=== PATIENT | female | born 1985 | race Caucasian/White ===

== ENCOUNTER 2018-06-25 18:16 | Inpatient (IN) | payer BC, OTHER ==
--- NOTE | 2018-06-25 18:31 | PDOC ---
Rapid Medical Evaluation Chief Complaint: Headache Time Seen by Provider: 06/25/18 18:29 Medical Evaluation: Allergies Allergy/AdvReac Type Severity Reaction Status Date / Time iodine Allergy Intermediate VOMITING/SY Verified 07/13/14 17:08 NCOPE 06/25/18 18:29 I performed a brief in-person evaluation of this patient. Chief complaint is: Headache, neck pain, right arm numbness. Symptoms started and were associated with facial rash. Seen by urgent care and dx with shingles, started on valcyclovir. Saw ID who disagreed, started on Medrol dose pack and doxycycline without improvement. Now with worsening pain. Directed by ID to come to ED. Pertinent physical exam findings include: Neck stiffness, limited ROM. Afebrile. I have ordered the following: Basic labs. Patient will proceed to the ED for further evaluation. Discharge Disposition - Diagnosis Neck pain - Discharge Dispostion Condition at time of disposition: Stable - Referrals - Patient Instructions - Post Discharge Activity
--- NOTE | 2018-06-25 20:43 | PDOC ---
History of Present Illness - General Chief Complaint: Headache Stated Complaint: HEAD PAIN Time Seen by Provider: 06/25/18 18:29 History Source: Patient Exam Limitations: No Limitations - History of Present Illness Initial Comments: 06/25/18 20:31 32 yo F with a hx of DM presents to the emergency department with worsening bilateral neck pain with radiation to her right arm and bilateral temporal aspect of head. Per the patient, this pain began two weeks ago and was seen in urgent care. There she had rash along the V1 distribution right side without optho involvement. She was diagnosed with shingles and prescribed valcyclovir and doxycycline which improved the rash, but did not flo the pain. She was seen by neurology which referred her to Dr. Vargas of infectious disease who gave her a solumedrol pack. Despite being on the pack, her pain has worsened. She states the pain is 10/10, sharp, located in the midline neck, right shoulder , and bilateral temporal lobes. Subsequently, she developed weakness and decreased sensation in her right arm that has been ongoing for 3-4 days. She endorses she had double vision several days ago but has resolved now. Endorses the following: ataxia. States her sister had symptoms of right facial droop with weakness in her arm that was transient twice in her lifetime. Denies the following: fever, chills, nausea, vomiting, chest pain, SOB, abdominal pain, hematuria, diarrhea, and leg pain/swelling. No recent travels. Endorses dysuria. PMD: Dr. Guerrero Shx: appendectomy, Meds: None Allergies: Iodine Social: Endorses tobacco. Denies alcohol and substance abuse. 06/26/18 00:16 Past History - Past Medical History Allergies/Adverse Reactions: Allergies Allergy/AdvReac Type Severity Reaction Status Date / Time iodine Allergy Severe VOMITING/SY Verified 06/26/18 14:41 NCOPE Home Medications: Ambulatory Orders Doxycycline Hyclate 100 mg PO DAILY 06/26/18 Gabapentin [Neurontin] 300 mg PO TID 06/26/18 Methylprednisolone mg PO 06/26/18 Valacyclovir HCl 1 gm PO TID 06/26/18 COPD: No Dialysis: No Kidney Stones: No - Surgical History Abdominal Surgery: Yes Appendectomy: Yes - Immunization History Immunization Up to Date: No - Suicide/Smoking/Psychosocial Hx Smoking History: Never smoked Have you smoked in the past 12 months: No Number of Cigarettes Smoked Daily: 6 Information on smoking cessation initiated: No Hx Alcohol Use: No Drug/Substance Use Hx: No Substance Use Type: Alcohol Review of Systems - Review of Systems Able to Perform ROS?: Yes Is the patient limited [place] proficient: No Constitutional: Yes: Weakness. No: Chills, Diaphoresis, Fever HEENTM: No: Eye Pain, Recent change in vision, Ear Pain, Nose Pain, Throat Pain , Mouth Pain Respiratory: No: Cough, Shortness of Breath, SOB with Exertion Cardiac (ROS): No: Chest Pain, Lightheadedness, Palpitations, Syncope, Chest Tightness ABD/GI: No: Constipated, Diarrhea, Nausea, Rectal Bleeding, Vomiting, Tarry Stools : No: Burning, Dysuria, Hematuria Musculoskeletal: Yes: Muscle Weakness, Neck Pain Integumentary: Yes: Lesions (post-zoster plaques on right frontal forehead V1 distribution). No: Erythema, Flushing Neurological: Yes: Tingling, Ataxia. No: Headache, Numbness, Tremors, Dizziness Psychiatric: No: Stressors Endocrine: No: Unexplained Weight Gain Hematologic/Lymphatic: No: Anemia *Physical Exam - Vital Signs Last Vital Signs Temp Pulse Resp BP Pulse Ox 98.0 F 91 H 18 134/98 100 06/25/18 18:25 06/25/18 18:25 06/25/18 18:25 06/25/18 18:25 06/25/18 18:25 - Physical Exam General Appearance: Yes: Nourished, Appropriately Dressed. No: Apparent Distress, Intoxicated HEENT: positive: EOMI, GORDO, Normal Voice, Pharynx Normal. negative: Pale Conjunctivae, Scleral Icterus (R), Scleral Icterus (L), Muffled/Hoarse voice, Pharyngeal Erythema, Tonsillar Exudate, Tonsillar Erythema, Nasal Congestion, Rhinorrhea, Sinus Tenderness Neck: positive: Tender (midline and bilateral paravertebral. ), Trachea midline , Supple, Decreased range of motion (due to pain), Tender lateral, Tender midline. negative: Lymphadenopathy (R), Lymphadenopathy (L) Respiratory/Chest: positive: Lungs Clear, Normal Breath Sounds. negative: Chest Tender, Respiratory Distress, Accessory Muscle Use, Crackles, Rales, Rhonchi, Stridor, Wheezing, Hyperresonant Cardiovascular: positive: Regular Rhythm, S1, S2, Tachycardia. negative: Systolic Murmur Gastrointestinal/Abdominal: positive: Normal Bowel Sounds, Flat, Soft. negative : Tender, Rebound, Tenderness, Hernia Lymphatic: negative: Adenopathy Musculoskeletal: positive: Normal Inspection, Vertebral Tenderness (cervical) Extremity: positive: Normal Capillary Refill, Normal Inspection. negative: Normal Range of Motion Integumentary: positive: Normal Color, Dry, Warm Neurologic: positive: roast master II-XII NML intact, Fully Oriented, Alert, Normal Mood/ Affect, Normal Response, Sensory Deficit (on right hand C6-7 distribution. ). negative: Motor Strength 5/5 (decreased hand strength in right hand on junior accounting clerk. ), EOM Palsy, Facial Droop Moderate Sedation - Procedure Monitoring Vital Signs: Procedure Monitoring Vital Signs Temperature 98.0 F 06/25/18 18:25 Pulse Rate 91 H 06/25/18 18:25 Respiratory Rate 18 06/25/18 18:25 Blood Pressure 134/98 06/25/18 18:25 O2 Sat by Pulse Oximetry (%) 100 06/25/18 18:25 ED Treatment Course - LABORATORY CBC & Chemistry Diagram: 06/29/18 06:00 06/29/18 06:00 Medical Decision Making - Medical Decision Making 32 yo F with a hx of DM presents to the emergency department with worsening bilateral neck pain with radiation to her right arm and bilateral temporal aspect of head. Initial vitals: Initial Vital Signs Temp Pulse Resp BP Pulse Ox 98.0 F 91 H 18 134/98 100 06/25/18 18:25 06/25/18 18:25 06/25/18 18:25 06/25/18 18:25 06/25/18 18:25 Work up: ddx: transient myelitis vs post-zoster neuralgia vs MS vs cervical radiculopathy will order c spine CT and head CT. labs showed she had leukocytosis with elevated glucose likely due to the steroids she is currently on. In further history taking, she states her sister had 2 episodes of transient loss of vision with hand junior accounting clerk weakness, but denies formal diagnosis. In addition, the patient states she had visual changes in her right eye that were transient and are resolved now. CT head and cervical spine show no acute pathologies. Neurology (Dr. Green) was contacted who agreed to see the patient. Requested MRI brain and cervical spine with contrast. Patient was accepted for admission. Dispo: Admit *DC/Admit/Observation/Transfer Diagnosis at time of Disposition: Neck pain, Right hand weakness Headache Qualifiers: Headache type: unspecified Headache chronicity pattern: unspecified pattern Intractability: not intractable Qualified Code(s): R51 - Headache - Discharge Dispostion Condition at time of disposition: Fair - Referrals - Patient Instructions - Post Discharge Activity
[2018-06-25] MEDS ORDERED: KETOROLAC TROMETHAMINE 30 MG/1 ML VIAL IM ONE (20:53)
--- NOTE | 2018-06-25 21:10 | PDOC ---
Attending Attestation - HPI HPI: This patient is a 32 year old female with a hx of DM, who presents to the emergency department with worsening bilateral neck pain. She states that neck pain radiates to her right arm and bilateral temporal aspect of head. Patient states that 2 weeks ago she was seen at the urgent care for her neck pain and lesions on her face. She was dx with shingles,started on valacyclovir. She saw ID who disagreed with dx and started her on Medrol dose pack and doxycycline without improvement She states that the lesions on her neck have since went away but she still has worsening unbearable neck pain, describes as a burning sensation, rates 10/10. She also notes associated headache, decreased sensation in her right arm, dysuria. She denies any inciting event. Patient also notes associated double vision. She denies any fever, chills, chest pain, shortness of breath, abdominal pain, hematuria, or hematochezia. - Physicial Exam PE: GENERAL: Awake, alert, and fully oriented, uncomfortable appearing. HEAD: No signs of trauma EYES: PERRLA, EOMI, eyes injected, conjunctiva clear. Right eye pain ENT: Auricles normal inspection, hearing grossly normal, nares patent, oropharynx clear without exudates. Moist mucosa NECK: Limited ROM,spastic muscle in c-spine, no lymphadenopathy, JVD, or masses LUNGS: Breath sounds equal, clear to auscultation bilaterally. No wheezes, and no crackles HEART: Tachycardic. Regular rhythm, normal S1 and S2, no murmurs, rubs or gallops ABDOMEN: Soft, nontender, normoactive bowel sounds. No guarding, no rebound. No masses EXTREMITIES: Weakness in hand side splitter of right arm. Sensory changes along radial nerve root into hand. Spastic muscles of c-spine. Midline tenderness to palpation of c-spine and upper thoracic region. Normal range of motion, no edema. No clubbing or cyanosis. No cords, erythema, or tenderness NEUROLOGICAL: Ataxic gait, leans to right. Cranial nerves II through XII grossly intact. Normal speech. SKIN: One healing lesion behind right ear. Warm, Dry, normal turgor, no rashes or lesions noted. - Medical Decision Making Paged Dr. David for Neuro consult 06/26/18 00:18 <Camelia Melton - Last Filed: 06/26/18 00:18> - Resident Resident Name: Edwin Nguyễn - ED Attending Attestation I have performed the following: I have examined & evaluated the patient, The case was reviewed & discussed with the resident, I agree w/resident's findings & plan, Exceptions are as noted - Medical Decision Making 06/25/18 21:09 I, Dr. Mira Valdez, DO, attest that this document has been prepared under my direction and personally reviewed by me in its entirety. I further attest, that it accurately reflects all work, treatment, procedures and medical decision -making performed by me. 06/25/18 21:35 a/p: 32yo female with ataxia, R arm weakness, R arm numbness and greenberg for a few days -has recently been dx with shingles, but ataxia, neck pain started before the shingles dx -R eye pain - no blurred vision -leans to the R with walking -currently on prednisone and symptoms are worsening -will send labs, head ct, ct c spine -concern for MS- may need an MRI -will discuss with neurology 06/25/18 22:48 pt with mildly elevated wbc and glu - most likely from prednisone use 06/26/18 00:[address] and c spine ct are negative 06/26/18 00:39 resident discussed the case with Dr. Green who will see the patient in consult requests MRI brain and c spine with contrast microblog sent to [facility] 06/26/18 01:[address] Oconnor who accepts pt to service <Mira Valdez - Last Filed: 06/26/18 01:23> *DC/Admit/Observation/Transfer <Camelia Melton - Last Filed: 06/26/18 00:18> - Discharge Dispostion Decision to Admit order: Yes <Mira Valdez - Last Filed: 06/26/18 01:23> Diagnosis at time of Disposition: Neck pain, Headache, Right hand weakness - Discharge Dispostion Condition at time of disposition: Fair
[2018-06-25] MEDS ORDERED: diazePAM CARPU-JECT 10 MG/2 ML DISP.SYRIN IVPUSH ONE (21:17)
[2018-06-25] MEDS ORDERED: SODIUM CHLORIDE 0.9% 1000 ML INFUS.BAG IV ONE (21:24)
[2018-06-25] MEDS ORDERED: diazePAM 5 MG TABLET PO ONE (21:26)
[2018-06-25 21:53] LABS: BASO % 1.5 % (0-2.0); EOS % 1.9 % (0-4.5); HEMATOCRIT 44.5 % (32.4-45.2); HEMOGLOBIN 15.1 GM/dL (10.7-15.3); LYMPH % 41.4 % (8-40); MCH 29.6 pg (25.7-33.7); MCHC 33.9 g/dl (32.0-36.0); MEAN CELL VOLUME 87.5 fl (80-96); MEAN PLT VOLUME 9.7 fl (7.5-11.1); MONO % 5.5 % (3.8-10.2); NEUT % 49.7 % (42.8-82.8); PLATELET COUNT 253 K/MM3 (134-434); RBC 5.09 M/mm3 (3.60-5.2); WHITE BLOOD COUNT 13.6 K/mm3 (4.0-10.0)
[2018-06-25 22:18] LABS: ALK PHOS 65 U/L (45-117); ANION GAP 9 MMOL/L (8-16); BILIRUBIN,TOTAL 0.7 mg/dL (0.2-1); BLOOD UREA NITROGEN 10 mg/dL (7-18); CALCIUM 8.7 mg/dL (8.5-10.1); CHLORIDE 104 mmol/L (98-107); CO2 25 mmol/L (21-32); CREATININE 0.6 mg/dL (0.55-1.3); GLUCOSE,RANDOM 228 mg/dL (74-106); POTASSIUM 3.6 mmol/L (3.5-5.1); SGOT/AST 8 U/L (15-37); SGPT/ALT 15 U/L (13-61); SODIUM 138 mmol/L (136-145); TOT PROT 7.2 g/dl (6.4-8.2)
[2018-06-25] MEDS ORDERED: diazePAM 5 MG TABLET ONE (22:47)
[2018-06-25] MEDS ORDERED: KETOROLAC TROMETHAMINE 30 MG/1 ML VIAL ONE (22:47)
[2018-06-25 23:37] LABS: URINE APPEARANCE SLCLOUDY; URINE BILIRUBIN NEGATIVE (<2.0 mg/dL); URINE COLOR AMBER; URINE GLUCOSE (UA) 3+ (NEGATIVE); URINE KETONE 1+ (NEGATIVE); URINE LEUK ESTERASE NEGATIVE (NEGATIVE); URINE NITRITE NEGATIVE (NEGATIVE); URINE PROTEIN 2+ (NEGATIVE)
[2018-06-25 23:38] LABS: HCG,QUALITATIVE URINE Negative
[2018-06-25 23:50] LABS: EPI CELLS RARE /HPF (FEW); URINE BACTERIA RARE /hpf (NONE SEEN); URINE MUCUS FEW
[2018-06-25] MEDS ORDERED: ACETAMINOPHEN 1000 MG/100 ML VIAL (NON FORMULARY) IVPB ONE (23:52)
[2018-06-25] MEDS ORDERED: METOCLOPRAMIDE HCL INJECTION 10 MG/2 ML VIAL IVPUSH ONE (23:52)
[2018-06-26] MEDS ORDERED: ACETAMINOPHEN INJECTION 100 ML IVPB ONE (01:07)
[2018-06-26] MEDS ORDERED: METOCLOPRAMIDE HCL INJECTION 10 MG/2 ML VIAL ONE (01:07)
--- NOTE | 2018-06-26 02:45 | HP ---
CHIEF COMPLAINT: headache/weakness/eye pain , neck pain PCP:none HISTORY OF PRESENT ILLNESS: 32 y/o female with PMH of DM who presented to the ED with a 3 day history of worsening right sided eye pain, neck pain, right sided weakness. Of note- 2 weeks ago patient was having intractable neck pain, the noticed that she had a rash on the right side of her forehead and noticed 2 bumps behind her right ear , so she went to the doctor who diagnosed her with shingles and she was prescribed valacyclovir and doxycycline. The rash went away, however, her pain didn't go away- so she was prescribed a medrol dose pack with no relief of pain. Then 3 days ago she started to notice her right eye started bothering her and she was having trouble picking things up with her right hand and felt that her right leg was weak with associated numbness/tingling and she felt off- balanced. she denies any fevers/chills/ recent illnesses and no one is sick around her ER course was notable for: (1) vitals signs wnl (2)hed and c-spine CT negative; (3) given benadryl; tylenol, valium, toradol Recent Travel: none PAST MEDICAL HISTORY: see above PAST SURGICAL HISTORY: appendectomy Social History: Smoking:smokes 1-2 cigarettes/day for the past 5 years Alcohol:social alcohol use Drugs: denies Family History: mother at 40 from multiple strokes, sister also has history of multple strokes Allergies iodine Allergy (Intermediate, Verified 07/13/14 17:08) VOMITING/SYNCOPE HOME MEDICATIONS: Home Medications Medication Instructions Recorded metFORMIN HCL [Glucophage -] 500 mg PO BID #60 tablet 07/14/14 REVIEW OF SYSTEMS CONSTITUTIONAL: Present: generalized weakness Absent: fever, chills, diaphoresis, , malaise, loss of appetite, weight change HEENT: Present: eye pain, visual changes Absent: rhinorrhea, nasal congestion, throat pain, throat swelling, difficulty swallowing, mouth swelling, ear pain, eye CARDIOVASCULAR: Absent: chest pain, syncope, palpitations, irregular heart rate, lightheadedness , peripheral edema RESPIRATORY: Absent: cough, shortness of breath, dyspnea with exertion, orthopnea, wheezing, stridor, hemoptysis GASTROINTESTINAL: Absent: abdominal pain, abdominal distension, nausea, vomiting, diarrhea, constipation, melena, hematochezia GENITOURINARY: Absent: dysuria, frequency, urgency, hesitancy, hematuria, flank pain, genital pain MUSCULOSKELETAL: Absent: myalgia, arthralgia, joint swelling, back pain, neck pain SKIN: Absent: rash, itching, pallor HEMATOLOGIC/IMMUNOLOGIC: Absent: easy bleeding, easy bruising, lymphadenopathy, frequent infections ENDOCRINE: Absent: unexplained weight gain, unexplained weight loss, heat intolerance, cold intolerance NEUROLOGIC: Present: dizziness, unsteady gait, Absent: headache, focal weakness or paresthesias, , seizure, mental status changes, bladder or bowel incontinence PSYCHIATRIC: Absent: anxiety, depression, suicidal or homicidal ideation, hallucinations. PHYSICAL EXAMINATION Vital Signs - 24 hr 06/25/18 18:25 Temperature 98.0 F Pulse Rate 91 H Respiratory 18 Rate Blood Pressure 134/98 O2 Sat by Pulse 100 Oximetry (%) GENERAL: Awake, alert, and fully oriented, in no acute distress.. EYES: Pupils equal, round and reactive to light, extraocular movements intact, pain in right eye upon lateral gaze.. NECK: no JVD, no lymphadenopathy. LUNGS:CTA B/L; no rales, rhonchi or wheezing. HEART: Regular rate and rhythm, normal S1 and S2 without murmur, rub or gallop. ABDOMEN: Soft, nontender, not distended, normoactive bowel sounds, no guarding, no rebound, no masses. No hepatomegaly or splenomegaly. MUSCULOSKELETAL: Normal range of motion at all joints. No bony deformities or tenderness. No CVA tenderness. EXTREMITIES: warm; well-perfused; no clubbing/cyanosis or edema NEUROLOGICAL: Cranial nerves II-XII intact. Normal speech.ataxic gait (leaning towards right side), 3/5 strenght on right side; 5/5 strength on left side. PSYCHIATRIC: Cooperative. Good eye contact. Appropriate mood and affect. SKIN: Warm, dry, normal turgor, no rashes or lesions noted, normal capillary refill. Laboratory Results - last 24 hr 06/25/18 06/25/18 06/25/18 21:36 21:36 21:37 WBC 13.6 H RBC 5.09 Hgb 15.1 Hct 44.5 MCV 87.5 MCH 29.6 MCHC 33.9 RDW 14.0 Plt Count 253 MPV 9.7 Absolute Neuts (auto) 6.8 Neutrophils % 49.7 Lymphocytes % 41.4 H D Monocytes % 5.5 Eosinophils % 1.9 Basophils % 1.5 Nucleated RBC % 0 Sodium 138 Potassium 3.6 Chloride 104 Carbon Dioxide 25 Anion Gap 9 BUN 10 Creatinine 0.6 Creat Clearance w eGFR > 60 Random Glucose 228 H Calcium 8.7 Total Bilirubin 0.7 AST 8 L ALT 15 Alkaline Phosphatase 65 Total Protein 7.2 Albumin 4.0 Serum , Qual Negative Urine Color Urine Appearance Urine pH Ur Specific [place] Urine Protein Urine Glucose (UA) Urine Ketones Urine Blood Urine Nitrite Urine Bilirubin Urine Urobilinogen Ur Leukocyte Esterase Urine WBC (Auto) Urine RBC (Auto) Ur Epithelial Cells Urine Bacteria Urine Mucus Urine HCG, Qual 06/25/18 22:48 WBC RBC Hgb Hct MCV MCH MCHC RDW Plt Count MPV Absolute Neuts (auto) Neutrophils % Lymphocytes % Monocytes % Eosinophils % Basophils % Nucleated RBC % Sodium Potassium Chloride Carbon Dioxide Anion Gap BUN Creatinine Creat Clearance w eGFR Random Glucose Calcium Total Bilirubin AST ALT Alkaline Phosphatase Total Protein Albumin Serum , Qual Urine Color Nuris Urine Appearance Slcloudy Urine pH 5.0 D Ur Specific [place] 1.052 H Urine Protein 2+ H Urine Glucose (UA) 3+ H Urine Ketones 1+ H Urine Blood 3+ H Urine Nitrite Negative Urine Bilirubin Negative Urine Urobilinogen 2.0 H Ur Leukocyte Esterase Negative Urine WBC (Auto) 18 Urine RBC (Auto) 24 Ur Epithelial Cells Rare Urine Bacteria Rare Urine Mucus Few Urine HCG, Qual Negative ASSESSMENT/PLAN: 32 y/o female with PMH of DM who presents to the ED with right sided eye pain, right sided weakness, neck pain and gait disturbance for the past few days #right sided weakness/pain/gait disturbance etiology possibly 2/2 new onset multiple sclerosis? -head CT/ c-spine CT negative -Dr Green was consulted- brain and c spine MRI ordered -hold off on prednisone for now -neuro checks #Shingles rash cleared within a few days of starting antibiotcs and does not fit the dermatomal distribution for typical shingles presentation -c/w valacyclovir for now; however stopping doxycycline -Dr. Darby consulted for input #DM -Hba1c pending -ISS F/E/N not on fluids monitor electrolytes diabetic diet Problem List - Problem (1) Headache Code(s): R51 - HEADACHE (2) Right hand weakness Code(s): R29.898 - OTH SYMPTOMS AND SIGNS INVOLVING THE MUSCULOSKELETAL SYSTEM (3) Hyperglycemia Code(s): R73.9 - HYPERGLYCEMIA, UNSPECIFIED Visit type - Emergency Visit Emergency Visit: Yes ED Registration Date: 06/26/18 Care time: The patient presented to the Emergency Department on the above date and was hospitalized for further evaluation of their emergent condition. - New Patient This patient is new to me today: Yes Date on this admission: 06/26/18 - Critical Care Critical Care patient: No
--- NOTE | 2018-06-26 03:34 | PN ---
Teaching Attending Note Name of Resident: Madiha Mena ATTENDING PHYSICIAN STATEMENT I saw and evaluated the patient. I reviewed the resident's note and discussed the case with the resident. I agree with the resident's findings and plan as documented. SUBJECTIVE: Seen and examined; please refer to resident note for further historical information. Briefly, this is a 32 y/o female who presents to the ER with a CC of multiple neurologic complaints. She had neck pain b/l at the base of her skull worse on the R-side with R-arm parasthesias and some weakness with L-leg weakness and resulting changes in her gait. She has no dysphagia, confusion, etc. She did have associated diplopia that resolved; no visual complaints on our exam and encounter. The rest of the aforementioned sx constant. She was seen as an OP for this and was diagnosed with shingles; she followed up with her PCP and was referred to what appears to be neurology and ID. She has been on valacyclovir and steroids and doxycycline and was presumptively diagnosed with shingles. She tells me that she had some bumps behind her R-ear (gone completely now with little if any evidence) and some redness on her forehead in a different dermatomal distribution. No other rashes, etc. The aformentioned medications provided her with minimal relief and thus she came to the hospital for further treatment and monitoring. The ER did speak with the neurologist cement mason maintenance who recommended MRI brain/c-spine to R/O MS. 10 sys ROS done and negative aside from HPI PMH and PSH reviewed FH significant for sister who had "stroke like episodes" in her 40s. Both parents of non-neurologic causes. Socially she denies drug abuse, etc. Medications to be reconciled OBJECTIVE: VS, labs, imaging reviewed NC AT EOMI; no skin findings on skull or behind ear that look acute/subacute RRR s1/2 no mgr NT ND +BS Neurologically intact with no obvious visual deficits and CN2-12 wnl no fnd. Favors L-side when walking. Normal muscle tone. Equisitely painful to palpate back of neck b/l even extending to the levator region Normal mood, appropriate affect Labs show CBC with WBC of 13 with 41% lymphocytosis; BMP with glu 228; UA with 2 + protein, 3+ glucose, 1+ ketones, 3+ blood; negative LE/Nitrite without any epithelial cells or bacteria. EKG pending MRI pending ASSESSMENT AND PLAN: Presents with neurological sx that did not relent after being presumptively treated for shingles as an OP with valtrex, doxy, and steroids. Neuro is following and would like to r/o MS. Appreciate their input. 1) Questionable MS -With findings as discussed above; was treated for suspected shingles without resolution. -Will defer management to neurology; MRI pending. Appreciate subspecialist input. -Neuro checks, seizure precautions. -Suspected shingles discussed below 2) Suspected Shingles -From OP tx; she was on medrol, doxy, valtrex -No s/s cellulitis, etc. Stopping doxycycline and medrol for the time being ( was burst so no taper required). Will at least continue valtrex as there could have been potential lesions before but none are present at this moment. -Consider ID consult in the morning if additional input is needed to say this isn't infective for certain. 3) DM2 with hyperglycemia -SSI when inpt; check A1c. May be hypergly 2/2 steroids. FENA -PO -PRN replete -DM diet -As tolerated Full Code
[2018-06-26 06:05] LABS: HEMATOCRIT 41.8 % (32.4-45.2); HEMOGLOBIN 14.2 GM/dL (10.7-15.3); LYMPH % 50.8 % (8-40); MEAN CELL VOLUME 88.3 fl (80-96); MEAN PLT VOLUME 9.7 fl (7.5-11.1); NEUT % 38.7 % (42.8-82.8); PLATELET COUNT 219 K/MM3 (134-434); RBC 4.74 M/mm3 (3.60-5.2); WHITE BLOOD COUNT 11.4 K/mm3 (4.0-10.0)
[2018-06-26 06:06] LABS: BASO % 0.7 % (0-2.0); MONO % 6.8 % (3.8-10.2)
[2018-06-26 06:41] LABS: ALBUMIN 3.4 g/dl (3.4-5.0); ALK PHOS 56 U/L (45-117); ANION GAP 7 MMOL/L (8-16); BILIRUBIN,TOTAL 0.9 mg/dL (0.2-1); BLOOD UREA NITROGEN 14 mg/dL (7-18); CALCIUM 8.1 mg/dL (8.5-10.1); CHLORIDE 102 mmol/L (98-107); CO2 29 mmol/L (21-32); CREATININE 0.7 mg/dL (0.55-1.3); GLUCOSE,RANDOM 193 mg/dL (74-106); MAGNESIUM 1.9 mg/dL (1.8-2.4); PHOSPHOROUS 4.1 mg/dL (2.5-4.9); POTASSIUM 3.6 mmol/L (3.5-5.1); SGOT/AST 6 U/L (15-37); SGPT/ALT 14 U/L (13-61); SODIUM 137 mmol/L (136-145); TOT PROT 6.2 g/dl (6.4-8.2)
[2018-06-26] MEDS: valACYclovir HCL 500 MG TABLET (FP) PO SCH ×2 (09:42→22:07)
[2018-06-26] MEDS: INSULIN SLIDING SCALE (NOVOLOG) 1 VIAL SQ SCH ×4 (09:42→22:09)
[2018-06-26] MEDS ORDERED: INSULIN (NOVOLOG) ASPART 100 UNITS/ML 10ML VIAL ONE ×3 (09:43→21:32)
[2018-06-26] MEDS: ENOXAPARIN NA (PORCINE) 40 MG/0.4 ML DISP.SYRIN SQ SCH (09:44)
[2018-06-26] MEDS ORDERED: ENOXAPARIN NA (PORCINE) 40 MG/0.4 ML DISP.SYRIN SQ ONE (09:44)
--- NOTE | 2018-06-26 10:17 | CON.NEURO ---
Consult Consult Specialty:: Neurology Referred by:: Dr. Ramirez Reason for Consultation:: numbness and weakness on the right side - History of Present Illness Chief Complaint: pain, numbness and weakness on the left side History of Present Illness: 32 year old woman, previously healthy who two weeks ago noted the onset of pain in the back of her neck. Later that day a coworker pointed out a rash on her right forehead. The rash consisted of "red bumps" that were extremely painful , stinging in quality, and as severe as any pain she could imagine. She went to urgent care where she was treated for a zoster (shingles) infection. She then noticed some right sided weakness and went to a neurologist, Dr. Meléndez, who sent her to ID and ID felt that this was not likely zoster and possibly another virus. She was referred to the ED due to ongoing pain. She describes the pain as severe and located on the face and right side of the body. She notes that her numbness and weakness have improved a little since the onset, but she is still in pain. There is no more rash. - History Source History Provided By: Patient Limitations to Obtaining History: No Limitations - Alcohol/Substance Use Hx Alcohol Use: No - Smoking History Smoking history: Never smoked Have you smoked in the past 12 months: No Aproximately how many cigarettes per day: 6 Home Medications - Allergies Allergies/Adverse Reactions: Allergies Allergy/AdvReac Type Severity Reaction Status Date / Time iodine Allergy Intermediate VOMITING/SY Verified 07/13/14 17:08 NCOPE - Home Medications Home Medications: Ambulatory Orders Doxycycline Hyclate 100 mg PO DAILY 06/26/18 Gabapentin [Neurontin] 300 mg PO TID 06/26/18 Physical Exam-Neuro Vital Signs: Vital Signs Temperature 98.1 F 06/26/18 03:55 Pulse Rate 82 06/26/18 03:55 Respiratory Rate 18 06/26/18 03:55 Blood Pressure 116/84 06/26/18 03:55 O2 Sat by Pulse Oximetry (%) 97 06/26/18 03:55 Constitutional: Yes: Well Nourished, No Distress Neck: Yes: WNL, Supple Labs: CBC, BMP 06/26/18 05:30 06/26/18 05:30 - Neuro Exam Level Of Consciousness: Yes: Alert, Oriented to Person, Oriented to Place, Oriented to Time Eyes: Yes: GORDO (EOMI) Speech: WNL Cranial Nerves II-XII Intact: No (reduced sensation and hyperesthesia on the right) Gag: Present (normal palatal movement) DTR's: 0 Left Brachioradialis, 0 Right Brachioradialis, 0 Left Achilles, 0 Right Achilles, 1+ Left Tricep, 1+ Right Tricep, 2+ Left Bicep, 2+ Right Bicep Babinski: Absent Response to light touch: Abnormal (hyperesthesia on right face, torso, arms, and legs, though not entire body, sparing dorsum and feet) Motor Strength: 4/5: Right Arm, Right Leg (some giveway but may be some weakness as well), 5/5: Left Arm, Left Leg Imaging - Results Cat Scan: Report Reviewed, Image Reviewed (normal brain and c spine) Problem List - Problems (1) Right hemiparesis Code(s): G81.91 - HEMIPLEGIA, UNSPECIFIED AFFECTING RIGHT DOMINANT SIDE (2) Headache Code(s): R51 - HEADACHE (3) Neck pain Code(s): M54.2 - CERVICALGIA Assessment/Plan Unusual constellation of findings in patient with recently either zoster or other viral infection. Could be transverse myelitis (the trigeminal ganglion dips into the c spine) though should also look at the brain as well. MS is possible though relationship to recent virus is unclear. Recommend first getting MRI brain and c spine with contrast as ordered, and then LP. Pain control. Will f/u with you. Thanks.
--- NOTE | 2018-06-26 13:31 | PN ---
Teaching Attending Note Name of Resident: Jackson Nice ATTENDING PHYSICIAN STATEMENT I saw and evaluated the patient. I reviewed the resident's note and discussed the case with the resident. I agree with the resident's findings and plan as documented. SUBJECTIVE: OBJECTIVE: Vital Signs Period Temp Pulse Resp BP Sys/Bee Pulse Ox Last 24 Hr 98.0 F-98.2 F 78-91 18-18 116-134/82-98 97-100 Laboratory Results - last 24 hr 06/25/18 06/25/18 06/25/18 21:36 21:36 21:37 WBC 13.6 H RBC 5.09 Hgb 15.1 Hct 44.5 MCV 87.5 MCH 29.6 MCHC 33.9 RDW 14.0 Plt Count 253 MPV 9.7 Absolute Neuts (auto) 6.8 Total Counted Neutrophils % 49.7 Neutrophils % (Manual) Band Neutrophils % Lymphocytes % 41.4 H D Lymphocytes % (Manual) Monocytes % 5.5 Monocytes % (Manual) Eosinophils % 1.9 Basophils % 1.5 Nucleated RBC % 0 Sodium 138 Potassium 3.6 Chloride 104 Carbon Dioxide 25 Anion Gap 9 BUN 10 Creatinine 0.6 Creat Clearance w eGFR > 60 POC Glucometer Random Glucose 228 H Hemoglobin A1c % Calcium 8.7 Phosphorus Magnesium Total Bilirubin 0.7 AST 8 L ALT 15 Alkaline Phosphatase 65 Total Protein 7.2 Albumin 4.0 Serum , Qual Negative Urine Color Urine Appearance Urine pH Ur Specific [place] Urine Protein Urine Glucose (UA) Urine Ketones Urine Blood Urine Nitrite Urine Bilirubin Urine Urobilinogen Ur Leukocyte Esterase Urine WBC (Auto) Urine RBC (Auto) Ur Epithelial Cells Urine Bacteria Urine Mucus Urine HCG, Qual 06/25/18 06/26/18 06/26/18 22:48 05:30 05:30 WBC 11.4 H RBC 4.74 Hgb 14.2 Hct 41.8 MCV 88.3 MCH 30.0 MCHC 34.0 RDW 14.0 Plt Count 219 MPV 9.7 Absolute Neuts (auto) 4.4 Total Counted 100 Neutrophils % 38.7 L D Neutrophils % (Manual) 38.0 L Band Neutrophils % 0.0 Lymphocytes % 50.8 H D Lymphocytes % (Manual) 58.0 H Monocytes % 6.8 Monocytes % (Manual) 4 Eosinophils % 3.0 Basophils % 0.7 Nucleated RBC % 0 Sodium 137 Potassium 3.6 Chloride 102 Carbon Dioxide 29 Anion Gap 7 L BUN 14 Creatinine 0.7 Creat Clearance w eGFR > 60 POC Glucometer Random Glucose 193 H Hemoglobin A1c % Calcium 8.1 L Phosphorus 4.1 Magnesium 1.9 Total Bilirubin 0.9 AST 6 L ALT 14 Alkaline Phosphatase 56 Total Protein 6.2 L Albumin 3.4 Serum , Qual Urine Color Nuris Urine Appearance Slcloudy Urine pH 5.0 D Ur Specific [place] 1.052 H Urine Protein 2+ H Urine Glucose (UA) 3+ H Urine Ketones 1+ H Urine Blood 3+ H Urine Nitrite Negative Urine Bilirubin Negative Urine Urobilinogen 2.0 H Ur Leukocyte Esterase Negative Urine WBC (Auto) 18 Urine RBC (Auto) 24 Ur Epithelial Cells Rare Urine Bacteria Rare Urine Mucus Few Urine HCG, Qual Negative 06/26/18 06/26/18 05:30 09:40 WBC RBC Hgb Hct MCV MCH MCHC RDW Plt Count MPV Absolute Neuts (auto) Total Counted Neutrophils % Neutrophils % (Manual) Band Neutrophils % Lymphocytes % Lymphocytes % (Manual) Monocytes % Monocytes % (Manual) Eosinophils % Basophils % Nucleated RBC % Sodium Potassium Chloride Carbon Dioxide Anion Gap BUN Creatinine Creat Clearance w eGFR POC Glucometer [phone] Random Glucose Hemoglobin A1c % 11.5 H Calcium Phosphorus Magnesium Total Bilirubin AST ALT Alkaline Phosphatase Total Protein Albumin Serum , Qual Urine Color Urine Appearance Urine pH Ur Specific [place] Urine Protein Urine Glucose (UA) Urine Ketones Urine Blood Urine Nitrite Urine Bilirubin Urine Urobilinogen Ur Leukocyte Esterase Urine WBC (Auto) Urine RBC (Auto) Ur Epithelial Cells Urine Bacteria Urine Mucus Urine HCG, Qual Current Medications Generic Name Dose Route Start Last Admin Trade Name Leonardo PRN Reason Stop Dose Admin Acetaminophen 650 mg 06/26/18 13:28 Tylenol - PO Q6H PRN Fever Or Pain Enoxaparin Sodium 40 mg 06/26/18 10:00 06/26/18 09:44 Lovenox - SQ 40 mg DAILY [facility] Administration Insulin Aspart 1 vial 06/26/18 07:00 06/26/18 13:25 Novolog Vial Sliding Scale - SQ Not Given ACHS [facility] Protocol Pregabalin 100 mg 06/26/18 22:00 Lyrica - PO BID DANISH Valacyclovir HCl 1,000 mg 06/26/18 10:00 06/26/18 09:42 Valtrex - PO Not Given BID [facility] ASSESSMENT AND PLAN:
[2018-06-26 14:41] VITALS: BMI 24.7
--- NOTE | 2018-06-26 15:13 | PN ---
Physical Exam: SUBJECTIVE: Patient seen and examined at bedside this morning. She endorses headache, right sided neck pain and upper, lower extremity weakness. Denies subjective fevers, chills. She currently denies any changes in vision, chest pain, palpitations, abdominal pain, nausea vomiting. OBJECTIVE: Vital Signs Period Temp Pulse Resp BP Sys/Bee Pulse Ox Last 24 Hr 98.0 F-98.4 F 78-91 18-20 116-134/82-98 97-100 GENERAL: The patient is awake, alert, and fully oriented, in no acute distress. HEAD: Normocephalic, atraumatic. EYES: PERRL. Right eye unable to abduct with lateral gaze. No horizontal or vertical nystagmus noted. Sclera not injected, no ptosis bilaterally. ENT: Oropharynx clear without exudates, moist mucous membranes. NECK: Supple without lymphadenopathy, or thyromegaly. LUNGS: Good inspiratory effort. Breath sounds equal, clear to auscultation bilaterally. No wheezes, no crackles. No accessory muscle use. HEART: Regular rate and rhythm. S1, S2 auscultated without murmur, rub or gallop. ABDOMEN: Soft, nontender to light and deep palpation X4 quadrants, nondistended. Normoactive bowel sounds, no guarding, no rebound tenderness. No hepatosplenomegaly palpated or percussed. EXTREMITIES: 2+ radial and dorsalis pedis pulses bilaterally. Warm, well- perfused, no lower extremity edema bilaterally. NEUROLOGICAL: Right eye lateral rectus palsy. Facial sensation diminished in right sided V1 ,and V3 distribution. Sensation diminished in right upper and lower extremity. Strength 3/5 right upper extremity, 5/5 left upper extremity. Strength 3/5 right lower extremity, 5/5 left lower extremity. Normal speech. Ataxic gait. Negative Romberg sign. PSYCH: Normal mood, normal affect upon my encounter today. SKIN: Warm, dry. Laboratory Results - last 24 hr 06/25/18 06/25/18 06/25/18 21:36 21:36 21:37 WBC 13.6 H RBC 5.09 Hgb 15.1 Hct 44.5 MCV 87.5 MCH 29.6 MCHC 33.9 RDW 14.0 Plt Count 253 MPV 9.7 Absolute Neuts (auto) 6.8 Total Counted Neutrophils % 49.7 Neutrophils % (Manual) Band Neutrophils % Lymphocytes % 41.4 H D Lymphocytes % (Manual) Monocytes % 5.5 Monocytes % (Manual) Eosinophils % 1.9 Basophils % 1.5 Nucleated RBC % 0 Sodium 138 Potassium 3.6 Chloride 104 Carbon Dioxide 25 Anion Gap 9 BUN 10 Creatinine 0.6 Creat Clearance w eGFR > 60 POC Glucometer Random Glucose 228 H Hemoglobin A1c % Calcium 8.7 Phosphorus Magnesium Total Bilirubin 0.7 AST 8 L ALT 15 Alkaline Phosphatase 65 Total Protein 7.2 Albumin 4.0 Serum , Qual Negative Urine Color Urine Appearance Urine pH Ur Specific [place] Urine Protein Urine Glucose (UA) Urine Ketones Urine Blood Urine Nitrite Urine Bilirubin Urine Urobilinogen Ur Leukocyte Esterase Urine WBC (Auto) Urine RBC (Auto) Ur Epithelial Cells Urine Bacteria Urine Mucus Urine HCG, Qual 06/25/18 06/26/18 06/26/18 22:48 05:30 05:30 WBC 11.4 H RBC 4.74 Hgb 14.2 Hct 41.8 MCV 88.3 MCH 30.0 MCHC 34.0 RDW 14.0 Plt Count 219 MPV 9.7 Absolute Neuts (auto) 4.4 Total Counted 100 Neutrophils % 38.7 L D Neutrophils % (Manual) 38.0 L Band Neutrophils % 0.0 Lymphocytes % 50.8 H D Lymphocytes % (Manual) 58.0 H Monocytes % 6.8 Monocytes % (Manual) 4 Eosinophils % 3.0 Basophils % 0.7 Nucleated RBC % 0 Sodium 137 Potassium 3.6 Chloride 102 Carbon Dioxide 29 Anion Gap 7 L BUN 14 Creatinine 0.7 Creat Clearance w eGFR > 60 POC Glucometer Random Glucose 193 H Hemoglobin A1c % Calcium 8.1 L Phosphorus 4.1 Magnesium 1.9 Total Bilirubin 0.9 AST 6 L ALT 14 Alkaline Phosphatase 56 Total Protein 6.2 L Albumin 3.4 Serum , Qual Urine Color Nuris Urine Appearance Slcloudy Urine pH 5.0 D Ur Specific [place] 1.052 H Urine Protein 2+ H Urine Glucose (UA) 3+ H Urine Ketones 1+ H Urine Blood 3+ H Urine Nitrite Negative Urine Bilirubin Negative Urine Urobilinogen 2.0 H Ur Leukocyte Esterase Negative Urine WBC (Auto) 18 Urine RBC (Auto) 24 Ur Epithelial Cells Rare Urine Bacteria Rare Urine Mucus Few Urine HCG, Qual Negative 06/26/18 06/26/18 06/26/18 05:30 09:40 13:16 WBC RBC Hgb Hct MCV MCH MCHC RDW Plt Count MPV Absolute Neuts (auto) Total Counted Neutrophils % Neutrophils % (Manual) Band Neutrophils % Lymphocytes % Lymphocytes % (Manual) Monocytes % Monocytes % (Manual) Eosinophils % Basophils % Nucleated RBC % Sodium Potassium Chloride Carbon Dioxide Anion Gap BUN Creatinine Creat Clearance w eGFR POC Glucometer [phone] Random Glucose Hemoglobin A1c % 11.5 H Calcium Phosphorus Magnesium Total Bilirubin AST ALT Alkaline Phosphatase Total Protein Albumin Serum , Qual Urine Color Urine Appearance Urine pH Ur Specific [place] Urine Protein Urine Glucose (UA) Urine Ketones Urine Blood Urine Nitrite Urine Bilirubin Urine Urobilinogen Ur Leukocyte Esterase Urine WBC (Auto) Urine RBC (Auto) Ur Epithelial Cells Urine Bacteria Urine Mucus Urine HCG, Qual Active Medications Generic Name Dose Route Start Last Admin Trade Name Freq PRN Reason Stop Dose Admin Acetaminophen 650 mg 06/26/18 13:28 Tylenol - PO Q6H PRN Fever Or Pain Enoxaparin Sodium 40 mg 06/26/18 10:00 06/26/18 09:44 Lovenox - SQ 40 mg DAILY [facility] Administration Insulin Aspart 1 vial 06/26/18 07:00 06/26/18 13:25 Novolog Vial Sliding Scale - SQ Not Given ACHS [facility] Protocol Ketorolac Tromethamine 10 mg 06/26/18 18:00 Toradol PO 07/01/18 17:59 Q6HPO [facility] Pregabalin 100 mg 06/26/18 22:00 Lyrica - PO BID [facility] Valacyclovir HCl 1,000 mg 06/26/18 10:00 06/26/18 09:42 Valtrex - PO Not Given BID [facility] ASSESSMENT/PLAN: Patient is a 32 year old female with history of diabetes mellitus (not on treatment) presents with complaint of right sided neck pain, upper and lower extremity weakness. Right sided hemiplegia -Etiology may be secondary to multiple sclerosis, vs. reactive s/p viral infection, possibly transverse myelitis -CT head shows no focal intracranial lesion. -CT cervical spine shows no fracture, or subluxation -Neurology consult (Dr. Clark) appreciated. -Follow MRI brain -Follow MRI cervical spine -Lumbar puncture after the MRI -Toradol 10mg PO Q6H -Lyrica 100mg PO BID Questionable herpes zoster -Patient endorses painful vesicles within right sided V1 distribution that crusted over several days ago. -Continue Valacyclovir 1000mg PO BID -ID consult (Dr. James) Diabetes mellitus -HbA1c 11.5 -Patient currently not on medication or treatment. Endorses that she was on Metformin several years ago, however stopped the medication to control her diabetes with diet, exercise. -Insulin sliding scale ACHS -Fingerstick blood glucose monitoring ACHS FEN -No IV fluids indicated -Follow BMP -Diabetic diet Prophylaxis -Lovenox 40mg subq daily Disposition -Continue care in medical surgical floor Visit type - Emergency Visit Emergency Visit: Yes ED Registration Date: 06/26/18 Care time: The patient presented to the Emergency Department on the above date and was hospitalized for further evaluation of their emergent condition. - New Patient This patient is new to me today: Yes Date on this admission: 06/26/18 - Critical Care Critical Care patient: No - Discharge Referral Referred to [facility] No
[2018-06-26] MEDS: KETOROLAC TROMETHAMINE 10 MG TABLET PO SCH (17:14)
--- NOTE | 2018-06-26 17:54 | CON.ID ---
Consult Consult Specialty:: infectious diseases Referred by:: hospitalist Reason for Consultation:: shingles,facial pain - History of Present Illness Chief Complaint: pain in the back and the face and the scalp History of Present Illness: 32 year old woman, previously healthy who two weeks ago noted the onset of pain in the back of her neck. Later that day a coworker pointed out a rash on her right forehead. The rash consisted of "red bumps" that were extremely painful , stinging in quality, and as severe as any pain she could imagine. She went to urgent care where she was treated for a zoster (shingles) infection. She then noticed some right sided weakness and went to a neurologist, Dr. Meléndez, who sent her to ID and ID felt that this was not likely zoster and possibly another virus. She was referred to the ED due to ongoing pain. She describes the pain as severe and located on the face and right side of the body. She notes that her numbness and weakness have improved a little since the onset, but she is still in pain. There is no more rash. patient still has wierd sensation on the face mainly on the right side at the moment patient does have any rash that i can note on the face.patient denies any other issues she still has pain in the rt shoulder which is going to the back on the rt post hand - History Source History Provided By: Patient Limitations to Obtaining History: No Limitations - Past Medical History ...LMP: 06/25/18 ...LMP Comment: 2010 - Alcohol/Substance Use Hx Alcohol Use: Yes - Smoking History Smoking history: Current every day smoker Have you smoked in the past 12 months: Yes Aproximately how many cigarettes per day: 4 Home Medications - Allergies Allergies/Adverse Reactions: Allergies Allergy/AdvReac Type Severity Reaction Status Date / Time iodine Allergy Severe VOMITING/SY Verified 06/26/18 14:41 NCOPE - Home Medications Home Medications: Ambulatory Orders Gabapentin [Neurontin] 300 mg PO TID 06/26/18 Methylprednisolone mg PO 06/26/18 RX: Doxycycline Hyclate 100 mg PO DAILY 06/26/18 Valacyclovir HCl 1 gm PO TID 06/26/18 Review of Systems - Review of Systems Constitutional: reports: Weakness Eyes: reports: No Symptoms HENT: reports: No Symptoms Neck: reports: No Symptoms Cardiovascular: reports: No Symptoms Respiratory: reports: No Symptoms Gastrointestinal: reports: No Symptoms Genitourinary: reports: No Symptoms Musculoskeletal: reports: No Symptoms Integumentary: reports: No Symptoms Neurological: reports: Parasthesia (rt side of the face) Endocrine: reports: No Symptoms Hematology/Lymphatic: reports: No Symptoms Psychiatric: reports: No Symptoms Physical Exam Vital Signs: Vital Signs Temperature 98.4 F 06/26/18 14:18 Pulse Rate 90 06/26/18 14:18 Respiratory Rate 20 06/26/18 14:18 Blood Pressure 125/82 06/26/18 14:18 O2 Sat by Pulse Oximetry (%) 98 06/26/18 14:18 Constitutional: Yes: Well Nourished, No Distress, Calm Eyes: Yes: Conjunctiva Clear Neck: Yes: Supple, Trachea Midline Cardiovascular: Yes: Regular Rate and Rhythm Respiratory: Yes: Regular, CTA Bilaterally Gastrointestinal: Yes: Normal Bowel Sounds, Soft Musculoskeletal: Yes: WNL Extremities: Yes: WNL Neurological: Yes: Alert, Oriented, Other (wierd sensation when touched on the rt side of the face) Psychiatric: Yes: Alert, Oriented Labs: CBC, BMP 06/26/18 05:30 06/26/18 05:30 Imaging - Results Cat Scan: Report Reviewed, Image Reviewed Assessment/Plan after examining the patient she still has the numbness on the mandular branch of th facial nerve,the question is that did she have shingles at the moment i do not see anything on her scalp or the face also i do not know why she is having the pain in the rt shoulder and weakness on the rt side of the body patients has no opthalmic symptoms she is going to get mri Problem List - Problem (1) Headache Code(s): R51 - HEADACHE (2) Right hand weakness Code(s): R29.898 - OTH SYMPTOMS AND SIGNS INVOLVING THE MUSCULOSKELETAL SYSTEM (3) Hyperglycemia Code(s): R73.9 - HYPERGLYCEMIA, UNSPECIFIED 4 shingles plan will await for mri continue valcylovir rest as per the team will see how patient dvelops
[2018-06-26] MEDS ORDERED: KETOROLAC TROMETHAMINE 10 MG TABLET PO SCH (18:00)
[2018-06-26] MEDS: ACETAMINOPHEN 325 MG TABLET (FP) PO PRN (18:04)
[2018-06-26] MEDS: PREGABALIN 100 MG CAPSULE PO SCH (22:07)
[2018-06-27] MEDS: INSULIN SLIDING SCALE (NOVOLOG) 1 VIAL SQ SCH ×4 (06:12→22:30)
[2018-06-27] MEDS: KETOROLAC TROMETHAMINE 10 MG TABLET PO SCH ×4 (06:13→17:45)
[2018-06-27] MEDS ORDERED: PT OWN MED DRAWER 7, Y5N ONE ×2 (06:37)
[2018-06-27 07:23] LABS: HEMATOCRIT 40.2 % (32.4-45.2); HEMOGLOBIN 13.5 GM/dL (10.7-15.3); MCHC 33.6 g/dl (32.0-36.0); MEAN CELL VOLUME 89.3 fl (80-96); MEAN PLT VOLUME 9.4 fl (7.5-11.1); PLATELET COUNT 201 K/MM3 (134-434); RDW 13.6 % (11.6-15.6); WHITE BLOOD COUNT 8.1 K/mm3 (4.0-10.0)
[2018-06-27 08:18] LABS: ALBUMIN 2.9 g/dl (3.4-5.0); ALK PHOS 54 U/L (45-117); ANION GAP 8 MMOL/L (8-16); BILIRUBIN,TOTAL 0.2 mg/dL (0.2-1); BLOOD UREA NITROGEN 16 mg/dL (7-18); CALCIUM 7.9 mg/dL (8.5-10.1); CHLORIDE 111 mmol/L (98-107); CO2 24 mmol/L (21-32); CREATININE 0.6 mg/dL (0.55-1.3); GLUCOSE,RANDOM 227 mg/dL (74-106); POTASSIUM 4.1 mmol/L (3.5-5.1); SGOT/AST 8 U/L (15-37); SGPT/ALT 12 U/L (13-61); SODIUM 142 mmol/L (136-145); TOT PROT 5.4 g/dl (6.4-8.2)
--- NOTE | 2018-06-27 09:33 | PN ---
Progress Note, Physician History of Present Illness: patient mentions that lyrica has helped her a lot pain much better had mri done - Current Medication List Current Medications: Active Medications Acetaminophen (Tylenol -) 650 mg PO Q6H PRN PRN Reason: Fever Or Pain Last Admin: 06/26/18 18:04 Dose: 650 mg Enoxaparin Sodium (Lovenox -) 40 mg SQ DAILY [facility] Last Admin: 06/26/18 09:44 Dose: 40 mg Insulin Aspart (Novolog Vial Sliding Scale -) 1 vial SQ ACHS [facility]; Protocol Last Admin: 06/27/18 06:12 Dose: 6 units Ketorolac Tromethamine (Toradol) 10 mg PO Q6HPO [facility] Stop: 07/01/18 14:59 Last Admin: 06/27/18 06:13 Dose: 10 mg Pregabalin (Lyrica -) 100 mg PO BID [facility] Last Admin: 06/26/18 22:07 Dose: 100 mg Valacyclovir HCl (Valtrex -) 1,000 mg PO BID [facility] Last Admin: 06/26/18 22:07 Dose: 1,000 mg - Objective Vital Signs: Vital Signs Temperature 98.2 F 06/27/18 05:00 Pulse Rate 65 06/27/18 05:00 Respiratory Rate 18 06/27/18 05:00 Blood Pressure 113/69 06/27/18 05:00 O2 Sat by Pulse Oximetry (%) 99 06/27/18 00:54 Constitutional: Yes: No Distress, Calm Cardiovascular: Yes: Regular Rate and Rhythm Respiratory: Yes: Regular, CTA Bilaterally Gastrointestinal: Yes: Normal Bowel Sounds, Soft Musculoskeletal: Yes: WNL Extremities: Yes: WNL Neurological: Yes: Alert, Oriented Psychiatric: Yes: Alert, Oriented Labs: CBC, BMP 06/27/18 06:48 06/27/18 06:48 - ....Imaging MRI: Report Reviewed, Image Reviewed Assessment/Plan after examining the patient she still has the numbness on the mandular branch of th facial nerve,the question is that did she have shingles at the moment i do not see anything on her scalp or the face also i do not know why she is having the pain in the rt shoulder and weakness on the rt side of the body patients has no opthalmic symptoms she is going to get mri Problem List - Problem (1) Headache Code(s): R51 - HEADACHE (2) Right hand weakness Code(s): R29.898 - OTH SYMPTOMS AND SIGNS INVOLVING THE MUSCULOSKELETAL SYSTEM (3) Hyperglycemia Code(s): R73.9 - HYPERGLYCEMIA, UNSPECIFIED 4 shingles plan mri noted continue valcylovir rest as per the team improving
[2018-06-27] MEDS: PREGABALIN 100 MG CAPSULE PO SCH ×2 (09:54→22:30)
[2018-06-27] MEDS: ENOXAPARIN NA (PORCINE) 40 MG/0.4 ML DISP.SYRIN SQ SCH (09:54)
[2018-06-27] MEDS: valACYclovir HCL 500 MG TABLET (FP) PO SCH ×2 (09:54→22:30)
[2018-06-27] MEDS: ACETAMINOPHEN 325 MG TABLET (FP) PO PRN ×2 (09:58→17:43)
[2018-06-27] MEDS ORDERED: KETOROLAC TROMETHAMINE 30 MG/1 ML VIAL IVPUSH ONE (11:10)
--- NOTE | 2018-06-27 14:42 | PN ---
Physical Exam: SUBJECTIVE: Patient seen and examined at bedside this morning. She continues to endorse right sided neck pain, and right sided upper and lower extremity weakness. She denies subjective fevers, chills, shortness of breath, chest pain , palpitations overnight. OBJECTIVE: Vital Signs Period Temp Pulse Resp BP Sys/Bee Pulse Ox Last 24 Hr 97.9 F-98.2 F 65-82 18-20 102-122/69-73 98-99 GENERAL: The patient is awake, alert, and fully oriented, in no acute distress. HEAD: Normocephalic, atraumatic. EYES: PERRL. Right eye unable to abduct with lateral gaze. No horizontal or vertical nystagmus noted. Sclera not injected, no ptosis bilaterally. ENT: Oropharynx clear without exudates, moist mucous membranes. NECK: Supple without lymphadenopathy, or thyromegaly. LUNGS: Good inspiratory effort. Breath sounds equal, clear to auscultation bilaterally. No wheezes, no crackles. No accessory muscle use. HEART: Regular rate and rhythm. S1, S2 auscultated without murmur, rub or gallop. ABDOMEN: Soft, nontender to light and deep palpation X4 quadrants, nondistended. Normoactive bowel sounds, no guarding, no rebound tenderness. No hepatosplenomegaly palpated or percussed. EXTREMITIES: 2+ radial and dorsalis pedis pulses bilaterally. Warm, well- perfused, no lower extremity edema bilaterally. NEUROLOGICAL: Right eye lateral rectus palsy. Facial sensation diminished in right sided V1 ,and V3 distribution. Sensation diminished in right upper and lower extremity. Strength 3/5 right upper extremity, 5/5 left upper extremity. Strength 3/5 right lower extremity, 5/5 left lower extremity. Normal speech. Negative Romberg sign. Gait less ataxic- improved from yesterday. PSYCH: Normal mood, normal affect upon my encounter today. SKIN: Warm, dry. Laboratory Results - last 24 hr 06/26/18 06/26/18 06/27/18 16:42 22:08 06:10 WBC RBC Hgb Hct MCV MCH MCHC RDW Plt Count MPV Sodium Potassium Chloride Carbon Dioxide Anion Gap BUN Creatinine Creat Clearance w eGFR POC Glucometer 226 181 258 Random Glucose Calcium Total Bilirubin AST ALT Alkaline Phosphatase Total Protein Albumin 06/27/18 06/27/18 06/27/18 06:48 06:48 14:02 WBC 8.1 RBC 4.50 Hgb 13.5 Hct 40.2 MCV 89.3 MCH 30.0 MCHC 33.6 RDW 13.6 Plt Count 201 MPV 9.4 Sodium 142 Potassium 4.1 Chloride 111 H Carbon Dioxide 24 Anion Gap 8 BUN 16 Creatinine 0.6 Creat Clearance w eGFR > 60 POC Glucometer 249 Random Glucose 227 H Calcium 7.9 L Total Bilirubin 0.2 AST 8 L ALT 12 L Alkaline Phosphatase 54 Total Protein 5.4 L Albumin 2.9 L Active Medications Generic Name Dose Route Start Last Admin Trade Name Freq PRN Reason Stop Dose Admin Acetaminophen 650 mg 06/26/18 13:28 06/27/18 09:58 Tylenol - PO 650 mg Q6H PRN Administration Fever Or Pain Enoxaparin Sodium 40 mg 06/26/18 10:00 06/27/18 09:54 Lovenox - SQ 40 mg DAILY [facility] Administration Insulin Aspart 1 vial 06/26/18 07:00 06/27/18 06:12 Novolog Vial Sliding Scale - SQ 6 units ACHS [facility] Administration Protocol Ketorolac Tromethamine 10 mg 06/26/18 15:00 06/27/18 12:24 Toradol PO 07/01/18 14:59 Not Given Q6HPO [facility] Pregabalin 100 mg 06/26/18 22:00 06/27/18 09:54 Lyrica - PO 100 mg BID [facility] Administration Valacyclovir HCl 1,000 mg 06/26/18 10:00 06/27/18 09:54 Valtrex - PO 1,000 mg BID [facility] Administration ASSESSMENT/PLAN: Patient is a 32 year old female with history of diabetes mellitus (not on treatment) presents with complaint of right sided neck pain, upper and lower extremity weakness. Right sided hemiplegia -Unclear etiology. Multiple sclerosis unlikely as no demyelinating lesions noted on MRI. -CT head shows no focal intracranial lesion. -CT cervical spine shows no fracture, or subluxation -MRI brain no evidence of edema, hemorrhage, subacute infarct, or demyelinating process. -MRI neck shows no evidence of disc herniation. Normal signal intensity of spinal cord without abnormal enhancement. -Neurology consult (Dr. Clark) appreciated. -Patient would not like to go forward with lumbar puncture at this time. -Lyrica increased to 200mg PO BID -Oxycodone 5mg PO Q6H for breakthrough pain Questionable herpes zoster -Patient endorses painful vesicles within right sided V1 distribution that crusted over several days ago. -Continue Valacyclovir 1000mg PO BID -ID consult (Dr. Darby) appreciated. Diabetes mellitus -HbA1c 11.5 -Patient currently not on medication or treatment. Endorses that she was on Metformin several years ago, however stopped the medication to control her diabetes with diet, exercise. -Insulin sliding scale ACHS -Fingerstick blood glucose monitoring ACHS FEN -No IV fluids indicated -Follow BMP -Diabetic diet Prophylaxis -Lovenox 40mg subq daily Disposition -Continue care in medical surgical floor Visit type - Emergency Visit Emergency Visit: Yes ED Registration Date: 06/26/18 Care time: The patient presented to the Emergency Department on the above date and was hospitalized for further evaluation of their emergent condition. - New Patient This patient is new to me today: No - Critical Care Critical Care patient: No - Discharge Referral Referred to [facility] No
--- NOTE | 2018-06-27 16:02 | PN ---
Progress Note, Physician Chief Complaint: Pain and numbness on right side History of Present Illness: 32 year old woman, previously healthy who two weeks ago noted the onset of pain in the back of her neck. Later that day a coworker pointed out a rash on her right forehead. The rash consisted of "red bumps" that were extremely painful , stinging in quality, and as severe as any pain she could imagine. She went to urgent care where she was treated for a zoster (shingles) infection. She then noticed some right sided weakness and went to a neurologist, Dr. Meléndez, who sent her to ID and ID felt that this was not likely zoster and possibly another virus. She was referred to the ED due to ongoing pain. She describes the pain as severe and located on the face and right side of the body. She notes that her numbness and weakness have improved a little since the onset, but she is still in pain. There is no more rash. She was given Lyrica last night which helped immensely, but after an examination she felt signficantly worse. earlier today, she couldn't feel her right 5th digit, but now she can. - Current Medication List Current Medications: Active Medications Acetaminophen (Tylenol -) 650 mg PO Q6H PRN PRN Reason: Fever Or Pain Last Admin: 06/27/18 09:58 Dose: 650 mg Enoxaparin Sodium (Lovenox -) 40 mg SQ DAILY [facility] Last Admin: 06/27/18 09:54 Dose: 40 mg Insulin Aspart (Novolog Vial Sliding Scale -) 1 vial SQ [facility]; Protocol Last Admin: 06/27/18 15:50 Dose: Not Given Ketorolac Tromethamine (Toradol) 10 mg PO Q6HPO [facility] Stop: 07/01/18 14:59 Last Admin: 06/27/18 12:24 Dose: Not Given Pregabalin (Lyrica -) 100 mg PO BID [facility] Last Admin: 06/27/18 09:54 Dose: 100 mg Valacyclovir HCl (Valtrex -) 1,000 mg PO BID [facility] Last Admin: 06/27/18 09:54 Dose: 1,000 mg - Objective Vital Signs: Vital Signs Temperature 98.5 F 06/27/18 15:03 Pulse Rate 68 06/27/18 15:03 Respiratory Rate 18 06/27/18 15:03 Blood Pressure 133/93 06/27/18 15:03 O2 Sat by Pulse Oximetry (%) 99 06/27/18 00:54 Neurological: Yes: Other (Level Of Consciousness: Yes: Alert, Oriented to Person , Oriented to Place, Oriented to Time Eyes: Yes: GORDO (EOMI) Speech: WNL Cranial Nerves II-XII Intact: No (reduced sensation and hyperesthesia on the right) Gag: Present (normal palatal movement) DTR's: 0 Left Brachioradialis, 0 Right Brachioradialis, 0 Left Achilles, 0 Right Achilles, 1+ Left Tricep, 1+ Right Tricep, 2+ Left Bicep, 2+ Right Bicep Babinski: Absent Response to light touch: Abnormal (hyperesthesia on right face, torso, arms, and legs, though not entire body, sparing dorsum and feet) Motor Strength: 4/5: Right Arm, Right Leg (some giveway but may be some weakness as well), 5/5: Left Arm, Left Leg) Labs: CBC, BMP 06/27/18 06:48 06/27/18 06:48 - ....Imaging MRI: Report Reviewed, Image Reviewed (Brain and C spine MRI's with and Without gadolinium were both normal) Problem List - Problems (1) Right hemiparesis Code(s): G81.91 - HEMIPLEGIA, UNSPECIFIED AFFECTING RIGHT DOMINANT SIDE (2) Headache Code(s): R51 - HEADACHE (3) Neck pain Code(s): M54.2 - CERVICALGIA Assessment/Plan Unusual constellation of findings in patient with recently either zoster or other viral infection. MS and transverse myelitis essentially ruled out with negative MRI's. She is currently balking on LP. I discussed this at length with her and she had warned me in advanced that she is scared of needles. The point of the LP is to look for signs of inflammation, and I had to honestly tell her that we might not find a specific cause of this, though just identifying evidence of inflammation would be helpful. She wants to hold off and see how she does for the time being. In the mean time , I'd increase the lyrica. Dr. Green covering this weekend. Will f/u with you. Thanks.
--- NOTE | 2018-06-27 16:07 | PN ---
Teaching Attending Note Name of Resident: Jackson Nice ATTENDING PHYSICIAN STATEMENT I saw and evaluated the patient. I reviewed the resident's note and discussed the case with the resident. I agree with the resident's findings and plan as documented. SUBJECTIVE: OBJECTIVE: Vital Signs Period Temp Pulse Resp BP Sys/Bee Pulse Ox Last 24 Hr 97.9 F-98.5 F 65-82 18-20 102-133/69-93 98-99 Laboratory Results - last 24 hr 06/26/18 06/26/18 06/27/18 16:42 22:08 06:10 WBC RBC Hgb Hct MCV MCH MCHC RDW Plt Count MPV Sodium Potassium Chloride Carbon Dioxide Anion Gap BUN Creatinine Creat Clearance w eGFR POC Glucometer 226 181 258 Random Glucose Calcium Total Bilirubin AST ALT Alkaline Phosphatase Total Protein Albumin 06/27/18 06/27/18 06/27/18 06:48 06:48 14:02 WBC 8.1 RBC 4.50 Hgb 13.5 Hct 40.2 MCV 89.3 MCH 30.0 MCHC 33.6 RDW 13.6 Plt Count 201 MPV 9.4 Sodium 142 Potassium 4.1 Chloride 111 H Carbon Dioxide 24 Anion Gap 8 BUN 16 Creatinine 0.6 Creat Clearance w eGFR > 60 POC Glucometer 249 Random Glucose 227 H Calcium 7.9 L Total Bilirubin 0.2 AST 8 L ALT 12 L Alkaline Phosphatase 54 Total Protein 5.4 L Albumin 2.9 L Current Medications Generic Name Dose Route Start Last Admin Trade Name Freq PRN Reason Stop Dose Admin Acetaminophen 650 mg 06/26/18 13:28 06/27/18 09:58 Tylenol - PO 650 mg Q6H PRN Administration Fever Or Pain Enoxaparin Sodium 40 mg 06/26/18 10:00 06/27/18 09:54 Lovenox - SQ 40 mg DAILY [facility] Administration Insulin Aspart 1 vial 06/26/18 07:00 06/27/18 15:50 Novolog Vial Sliding Scale - SQ Not Given ACHS [facility] Protocol Ketorolac Tromethamine 10 mg 06/26/18 15:00 06/27/18 12:24 Toradol PO 07/01/18 14:59 Not Given Q6HPO [facility] Pregabalin 100 mg 06/26/18 22:00 06/27/18 09:54 Lyrica - PO 100 mg BID [facility] Administration Valacyclovir HCl 1,000 mg 06/26/18 10:00 06/27/18 09:54 Valtrex - PO 1,000 mg BID [facility] Administration ASSESSMENT AND PLAN:
[2018-06-27] MEDS: oxyCODONE HCL 5 MG TABLET PO PRN (17:43)
[2018-06-28] MEDS ORDERED: MELATONIN 5 MG TABLETS PO ONE (00:26)
[2018-06-28] MEDS: oxyCODONE HCL 5 MG TABLET PO PRN ×3 (00:41→16:59)
[2018-06-28] MEDS: ACETAMINOPHEN 325 MG TABLET (FP) PO PRN ×3 (00:42→16:59)
[2018-06-28] MEDS: KETOROLAC TROMETHAMINE 10 MG TABLET PO SCH ×4 (00:42→18:06)
[2018-06-28] MEDS ORDERED: MORPHINE SULFATE 2 MG/ML VIAL IVPUSH ONE (02:05)
[2018-06-28] MEDS: INSULIN SLIDING SCALE (NOVOLOG) 1 VIAL SQ SCH ×4 (06:16→21:53)
[2018-06-28 07:24] LABS: HEMATOCRIT 39.2 % (32.4-45.2); HEMOGLOBIN 13.7 GM/dL (10.7-15.3); MCH 30.7 pg (25.7-33.7); MCHC 34.9 g/dl (32.0-36.0); MEAN CELL VOLUME 87.9 fl (80-96); MEAN PLT VOLUME 9.5 fl (7.5-11.1); PLATELET COUNT 206 K/MM3 (134-434); RBC 4.46 M/mm3 (3.60-5.2); RDW 13.8 % (11.6-15.6); WHITE BLOOD COUNT 10.8 K/mm3 (4.0-10.0)
[2018-06-28] MEDS ORDERED: PT OWN MED DRAWER 7, Y5N ONE ×2 (07:49→13:02)
[2018-06-28 08:12] LABS: ALBUMIN 3.3 g/dl (3.4-5.0); ALK PHOS 56 U/L (45-117); ANION GAP 9 MMOL/L (8-16); BILIRUBIN,TOTAL 0.7 mg/dL (0.2-1); BLOOD UREA NITROGEN 10 mg/dL (7-18); CALCIUM 8.3 mg/dL (8.5-10.1); CHLORIDE 102 mmol/L (98-107); CO2 25 mmol/L (21-32); CREATININE 0.7 mg/dL (0.55-1.3); GLUCOSE,RANDOM 238 mg/dL (74-106); POTASSIUM 4.1 mmol/L (3.5-5.1); SGOT/AST 25 U/L (15-37); SGPT/ALT 27 U/L (13-61); SODIUM 137 mmol/L (136-145)
[2018-06-28] MEDS: ENOXAPARIN NA (PORCINE) 40 MG/0.4 ML DISP.SYRIN SQ SCH (10:28)
[2018-06-28] MEDS: valACYclovir HCL 500 MG TABLET (FP) PO SCH ×2 (10:28→21:54)
[2018-06-28] MEDS: PREGABALIN 100 MG CAPSULE PO SCH ×2 (10:28→21:54)
--- NOTE | 2018-06-28 12:45 | PN ---
Progress Note, Physician History of Present Illness: stable continues to have pain on the rt side relieved by morphine - Current Medication List Current Medications: Active Medications Acetaminophen (Tylenol -) 650 mg PO Q6H PRN PRN Reason: Fever Or Pain Last Admin: 06/28/18 06:13 Dose: 650 mg Enoxaparin Sodium (Lovenox -) 40 mg SQ DAILY [facility] Last Admin: 06/28/18 10:28 Dose: 40 mg Insulin Aspart (Novolog Vial Sliding Scale -) 1 vial SQ [facility]; Protocol Last Admin: 06/28/18 06:16 Dose: 4 units Ketorolac Tromethamine (Toradol) 10 mg PO Q6HPO [facility] Stop: 07/01/18 14:59 Last Admin: 06/28/18 06:13 Dose: 10 mg Oxycodone HCl (Roxicodone -) 5 mg PO Q6H PRN PRN Reason: PAIN LEVEL 6-10 Last Admin: 06/28/18 06:13 Dose: 5 mg Pregabalin (Lyrica -) 200 mg PO BID [facility] Last Admin: 06/28/18 10:28 Dose: 200 mg Valacyclovir HCl (Valtrex -) 1,000 mg PO BID [facility] Last Admin: 06/28/18 10:28 Dose: 1,000 mg - Objective Vital Signs: Vital Signs Temperature 97.7 F 06/28/18 05:50 Pulse Rate 75 06/28/18 05:50 Respiratory Rate 20 06/28/18 05:50 Blood Pressure 130/88 06/28/18 05:50 O2 Sat by Pulse Oximetry (%) 100 06/27/18 22:00 Constitutional: Yes: No Distress, Calm Respiratory: Yes: Regular, CTA Bilaterally Gastrointestinal: Yes: Normal Bowel Sounds, Soft Musculoskeletal: Yes: WNL Extremities: Yes: WNL Neurological: Yes: Alert, Oriented, Other (pain rt shoulder) Psychiatric: Yes: Alert, Oriented Labs: CBC, BMP 06/28/18 06:00 06/28/18 06:00 - ....Imaging MRI: Report Reviewed, Image Reviewed Assessment/Plan Problem List - Problem (1) Headache Code(s): R51 - HEADACHE (2) Right hand weakness Code(s): R29.898 - OTH SYMPTOMS AND SIGNS INVOLVING THE MUSCULOSKELETAL SYSTEM (3) Hyperglycemia Code(s): R73.9 - HYPERGLYCEMIA, UNSPECIFIED 4 shingles plan continue current mgmt i think maybe physio will help her rest as per the team monitor for pain
--- NOTE | 2018-06-28 13:20 | PN ---
Physical Exam: SUBJECTIVE: Patient seen and examined. She had severe pain in the right side of her neck overnight requiring morphine which helped. She does not want LP. OBJECTIVE: Vital Signs Period Temp Pulse Resp BP Sys/Bee Pulse Ox Last 24 Hr 97.7 F-98.5 F 67-77 18-20 124-147/68-93 99-100 GENERAL: The patient is awake, alert, and fully oriented, in no acute distress. HEAD: Normal with no signs of trauma. EYES: PERRL, extraocular movements intact, sclera anicteric, conjunctiva clear. No ptosis. ENT: Ears normal, nares patent, oropharynx clear without exudates, moist mucous membranes. NECK: Trachea midline, full range of motion, supple. LUNGS: Breath sounds equal, clear to auscultation bilaterally, no wheezes, no crackles, no accessory muscle use. HEART: Regular rate and rhythm, S1, S2 without murmur, rub or gallop. ABDOMEN: Soft, nontender, nondistended, normoactive bowel sounds, no guarding, no rebound, no hepatosplenomegaly, no masses. EXTREMITIES: 2+ pulses, warm, well-perfused, no edema. NEUROLOGICAL: Cranial nerves II through XII grossly intact. Normal speech, gait not observed. PSYCH: Normal mood, normal affect. SKIN: Warm, dry, normal turgor, no rashes or lesions noted Laboratory Results - last 24 hr 06/27/18 06/27/18 06/27/18 14:02 17:34 22:28 WBC RBC Hgb Hct MCV MCH MCHC RDW Plt Count MPV Sodium Potassium Chloride Carbon Dioxide Anion Gap BUN Creatinine Creat Clearance w eGFR POC Glucometer 249 330 215 Random Glucose Calcium Total Bilirubin AST ALT Alkaline Phosphatase Total Protein Albumin 06/28/18 06/28/18 06/28/18 06:00 06:00 06:15 WBC 10.8 H RBC 4.46 Hgb 13.7 Hct 39.2 MCV 87.9 MCH 30.7 MCHC 34.9 RDW 13.8 Plt Count 206 MPV 9.5 Sodium 137 Potassium 4.1 Chloride 102 Carbon Dioxide 25 Anion Gap 9 BUN 10 Creatinine 0.7 Creat Clearance w eGFR > 60 POC Glucometer 242 Random Glucose 238 H Calcium 8.3 L Total Bilirubin 0.7 AST 25 ALT 27 Alkaline Phosphatase 56 Total Protein 6.0 L Albumin 3.3 L 06/28/18 12:12 WBC RBC Hgb Hct MCV MCH MCHC RDW Plt Count MPV Sodium Potassium Chloride Carbon Dioxide Anion Gap BUN Creatinine Creat Clearance w eGFR POC Glucometer 289 Random Glucose Calcium Total Bilirubin AST ALT Alkaline Phosphatase Total Protein Albumin Active Medications Generic Name Dose Route Start Last Admin Trade Name Freq PRN Reason Stop Dose Admin Acetaminophen 650 mg 06/26/18 13:28 06/28/18 06:13 Tylenol - PO 650 mg Q6H PRN Administration Fever Or Pain Enoxaparin Sodium 40 mg 06/26/18 10:00 06/28/18 10:28 Lovenox - SQ 40 mg DAILY [facility] Administration Insulin Aspart 1 vial 06/26/18 07:00 06/28/18 13:01 Novolog Vial Sliding Scale - SQ 6 units ACHS [facility] Administration Protocol Ketorolac Tromethamine 10 mg 06/26/18 15:00 06/28/18 13:03 Toradol PO 07/01/18 14:59 10 mg Q6HPO [facility] Administration Oxycodone HCl 5 mg 06/27/18 16:24 06/28/18 06:13 Roxicodone - PO 5 mg Q6H PRN Administration PAIN LEVEL 6-10 Pregabalin 200 mg 06/27/18 16:08 06/28/18 10:28 Lyrica - PO 200 mg BID [facility] Administration Valacyclovir HCl 1,000 mg 06/26/18 10:00 06/28/18 10:28 Valtrex - PO 1,000 mg BID [facility] Administration ASSESSMENT/PLAN:
[2018-06-29] MEDS: KETOROLAC TROMETHAMINE 10 MG TABLET PO SCH ×4 (00:30→18:09)
[2018-06-29] MEDS: oxyCODONE HCL 5 MG TABLET PO PRN ×2 (04:01→18:56)
[2018-06-29] MEDS: ACETAMINOPHEN 325 MG TABLET (FP) PO PRN ×2 (05:07→18:57)
[2018-06-29] MEDS: INSULIN SLIDING SCALE (NOVOLOG) 1 VIAL SQ SCH ×4 (06:21→21:45)
[2018-06-29] MEDS ORDERED: oxyCODONE HCL 5 MG TABLET PO ONE (06:58)
[2018-06-29 07:29] LABS: BASO % 0.4 % (0-2.0); EOS % 3.2 % (0-4.5); HEMATOCRIT 37.9 % (32.4-45.2); HEMOGLOBIN 13.5 GM/dL (10.7-15.3); LYMPH % 28.1 % (8-40); MCH 31.7 pg (25.7-33.7); MCHC 35.5 g/dl (32.0-36.0); MEAN CELL VOLUME 89.3 fl (80-96); MEAN PLT VOLUME 10.4 fl (7.5-11.1); MONO % 5.3 % (3.8-10.2); PLATELET COUNT 183 K/MM3 (134-434); RBC 4.24 M/mm3 (3.60-5.2); RDW 14.1 % (11.6-15.6)
[2018-06-29 07:51] LABS: ANION GAP 7 MMOL/L (8-16); BLOOD UREA NITROGEN 12 mg/dL (7-18); CALCIUM 8.1 mg/dL (8.5-10.1); CHLORIDE 107 mmol/L (98-107); CO2 25 mmol/L (21-32); CREATININE 0.5 mg/dL (0.55-1.3); GLUCOSE,RANDOM 158 mg/dL (74-106); POTASSIUM 4.5 mmol/L (3.5-5.1); SODIUM 138 mmol/L (136-145)
[2018-06-29] MEDS: PREGABALIN 100 MG CAPSULE PO SCH ×2 (09:41→21:44)
[2018-06-29] MEDS: ENOXAPARIN NA (PORCINE) 40 MG/0.4 ML DISP.SYRIN SQ SCH (09:41)
--- NOTE | 2018-06-29 09:41 | PN ---
Physical Exam: SUBJECTIVE: Patient seen and examined. No events overnight. Patient crying, says she still has R neck pain and a headache. OBJECTIVE: Vital Signs Period Temp Pulse Resp BP Sys/Bee Pulse Ox Last 24 Hr 97.9 F-98.5 F 70-86 18-20 90-127/52-80 98 GENERAL: The patient is awake, alert, and fully oriented, in no acute distress. HEAD: Normal with no signs of trauma. EYES: PERRL, Right eye unable to abduct with lateral gaze. No horizontal or vertical nystagmus noted. ENT: moist mucous membranes. NECK: cervical/nuchal tenderness LUNGS: Breath sounds equal, clear to auscultation bilaterally, no wheezes, no crackles, no accessory muscle use. HEART: Regular rate and rhythm, S1, S2 without murmur, rub or gallop. ABDOMEN: Soft, nontender, nondistended, normoactive bowel sounds, no guarding, no rebound, no hepatosplenomegaly, no masses. EXTREMITIES: 2+ pulses, warm, well-perfused, no edema. NEUROLOGICAL: Normal speech, gait not observed. Right eye lateral rectus palsy. right deltoid/biceps weakness PSYCH: Normal mood, normal affect. SKIN: Warm, dry, normal turgor, no rashes or lesions noted Laboratory Results - last 24 hr 06/28/18 06/28/18 06/28/18 12:12 17:15 21:52 WBC RBC Hgb Hct MCV MCH MCHC RDW Plt Count MPV Absolute Neuts (auto) Neutrophils % Lymphocytes % Monocytes % Eosinophils % Basophils % Nucleated RBC % Sodium Potassium Chloride Carbon Dioxide Anion Gap BUN Creatinine Creat Clearance w eGFR POC Glucometer 289 203 213 Random Glucose Calcium 06/29/18 06/29/18 06:00 06:00 WBC 11.0 H RBC 4.24 Hgb 13.5 Hct 37.9 MCV 89.3 MCH 31.7 MCHC 35.5 RDW 14.1 Plt Count 183 MPV 10.4 Absolute Neuts (auto) 6.9 Neutrophils % 63.0 D Lymphocytes % 28.1 D Monocytes % 5.3 Eosinophils % 3.2 Basophils % 0.4 Nucleated RBC % 0 Sodium 138 Potassium 4.5 Chloride 107 Carbon Dioxide 25 Anion Gap 7 L BUN 12 Creatinine 0.5 L Creat Clearance w eGFR > 60 POC Glucometer Random Glucose 158 H Calcium 8.1 L Active Medications Generic Name Dose Route Start Last Admin Trade Name Freq PRN Reason Stop Dose Admin Acetaminophen 650 mg 06/26/18 13:28 06/29/18 05:07 Tylenol - PO 650 mg Q6H PRN Administration Fever Or Pain Enoxaparin Sodium 40 mg 06/26/18 10:00 06/28/18 10:28 Lovenox - SQ 40 mg DAILY [facility] Administration Insulin Aspart 1 vial 06/26/18 07:00 06/29/18 06:21 Novolog Vial Sliding Scale - SQ 2 units ACHS [facility] Administration Protocol Ketorolac Tromethamine 10 mg 06/26/18 15:00 06/29/18 05:07 Toradol PO 07/01/18 14:59 10 mg Q6HPO [facility] Administration Oxycodone HCl 5 mg 06/27/18 16:24 06/29/18 04:01 Roxicodone - PO 5 mg Q6H PRN Administration PAIN LEVEL 6-10 Pregabalin 200 mg 06/27/18 16:08 06/28/18 21:54 Lyrica - PO 200 mg BID [facility] Administration Valacyclovir HCl 1,000 mg 06/26/18 10:00 06/28/18 21:54 Valtrex - PO 1,000 mg BID [facility] Administration ASSESSMENT/PLAN: Patient is a 32 year old female with history of diabetes mellitus (not on treatment) presents with complaint of right sided neck pain, upper and lower extremity weakness. #Cervical/Nuchal Pain -Unclear etiology. Multiple sclerosis unlikely as no demyelinating lesions noted on MRI. -?post zoster upper cervical radiculitis per Neuro -CT head shows no focal intracranial lesion. -CT cervical spine shows no fracture, or subluxation -MRI brain no evidence of edema, hemorrhage, subacute infarct, or demyelinating process. -MRI neck shows no evidence of disc herniation. Normal signal intensity of spinal cord without abnormal enhancement. -Neurology consult (Dr. Clark) appreciated: Unusual constellation of findings in patient with recently either zoster or other viral infection. MS and transverse myelitis essentially ruled out with negative MRI's. -Patient agreeable to LP. Ordered. Follow up with IR tomorrow. -Lyrica increased to 200mg PO BID -Increase Tordol to 30mg BID -Oxycodone 5mg PO Q6H for breakthrough pain Questionable herpes zoster -Patient endorses painful vesicles within right sided V1 distribution that crusted over several days ago. -Continue Valacyclovir 1000mg PO BID -ID consult (Dr. Darby) appreciated. Diabetes mellitus -HbA1c 11.5 -Patient currently not on medication or treatment. Endorses that she was on Metformin several years ago, however stopped the medication to control her diabetes with diet, exercise. -Insulin sliding scale ACHS -Fingerstick blood glucose monitoring ACHS FEN -No IV fluids indicated -Follow BMP -Diabetic diet Prophylaxis -Lovenox 40mg subq daily Disposition -Continue care in medical surgical floor Visit type - Emergency Visit Emergency Visit: Yes ED Registration Date: 06/29/18 Care time: The patient presented to the Emergency Department on the above date and was hospitalized for further evaluation of their emergent condition. - New Patient This patient is new to me today: Yes Date on this admission: 07/04/18 - Critical Care Critical Care patient: No
[2018-06-29] MEDS: valACYclovir HCL 500 MG TABLET (FP) PO SCH ×2 (09:42→21:44)
[2018-06-29] MEDS ORDERED: INSULIN (NOVOLOG) ASPART 100 UNITS/ML 10ML VIAL ONE (11:00)
[2018-06-29] MEDS ORDERED: PT OWN MED DRAWER 7, Y5N ONE (11:08)
--- NOTE | 2018-06-29 11:43 | PN ---
Progress Note, Physician History of Present Illness: patient stable still with pain now with headache neurology on case - Current Medication List Current Medications: Active Medications Acetaminophen (Tylenol -) 650 mg PO Q6H PRN PRN Reason: Fever Or Pain Last Admin: 06/29/18 05:07 Dose: 650 mg Enoxaparin Sodium (Lovenox -) 40 mg SQ DAILY [facility] Last Admin: 06/29/18 09:41 Dose: 40 mg Insulin Aspart (Novolog Vial Sliding Scale -) 1 vial SQ [facility]; Protocol Last Admin: 06/29/18 11:02 Dose: 4 units Ketorolac Tromethamine (Toradol) 10 mg PO Q6HPO [facility] Stop: 07/01/18 14:59 Last Admin: 06/29/18 11:08 Dose: 10 mg Oxycodone HCl (Roxicodone -) 5 mg PO Q6H PRN PRN Reason: PAIN LEVEL 6-10 Last Admin: 06/29/18 04:01 Dose: 5 mg Pregabalin (Lyrica -) 200 mg PO BID [facility] Last Admin: 06/29/18 09:41 Dose: 200 mg Valacyclovir HCl (Valtrex -) 1,000 mg PO BID [facility] Last Admin: 06/29/18 09:42 Dose: 1,000 mg - Objective Vital Signs: Vital Signs Temperature 98.1 F 06/29/18 10:00 Pulse Rate 79 06/29/18 10:00 Respiratory Rate 18 06/29/18 10:00 Blood Pressure 136/73 06/29/18 10:00 O2 Sat by Pulse Oximetry (%) 98 06/29/18 10:00 Constitutional: Yes: Calm, Mild Distress Cardiovascular: Yes: Regular Rate and Rhythm Respiratory: Yes: Regular, CTA Bilaterally Gastrointestinal: Yes: Normal Bowel Sounds, Soft Musculoskeletal: Yes: WNL Extremities: Yes: WNL Neurological: Yes: Alert, Oriented Psychiatric: Yes: Alert, Oriented Labs: CBC, BMP 06/29/18 06:00 06/29/18 06:00 Assessment/Plan Problem List - Problem (1) Headache Code(s): R51 - HEADACHE (2) Right hand weakness Code(s): R29.898 - OTH SYMPTOMS AND SIGNS INVOLVING THE MUSCULOSKELETAL SYSTEM (3) Hyperglycemia Code(s): R73.9 - HYPERGLYCEMIA, UNSPECIFIED 4 shingles plan continue current mgmt i think maybe physio will help her rest as per the team monitor for pain will see what neuro does
--- NOTE | 2018-06-29 13:12 | PN ---
Progress Note (short form) - Note Progress Note: 32 year old woman, previously healthy who two weeks ago noted the onset of pain in the back of her neck. Later that day a coworker pointed out a rash on her right forehead. The rash consisted of "red bumps" that were extremely painful , stinging in quality, and as severe as any pain she could imagine. She went to urgent care where she was treated for a zoster (shingles) infection. She then noticed some right sided weakness and went to a neurologist, Dr. Meléndez, who sent her to ID and ID felt that this was not likely zoster and possibly another virus. She was referred to the ED due to ongoing pain. She describes the pain as severe and located on the face and right side of the body. She notes that her numbness and weakness have improved a little since the onset, but she is still in pain. There is no more rash. She was given Lyrica last night which helped immensely, but after an examination she felt signficantly worse. earlier today, she couldn't feel her right 5th digit, but now she can. -Today she conts. to report cervical/nuchal pain that raditaes to bilateral fronto/parietal regions, no change in quality. she feels Toradol helps her quite well. Exam- 5-/5 right deltoid/biceps weakness and absent left triceps reflex. MRI brain/Cspine-+/-xiang-without abn.P: A+P: ?? post zoster upperr cervical radiculitis, it is encouraging that she responds to antiinflammatories. She is agreeing to atap under CT guidance by IR -will need to be arranged for tomorrow. I will d/ w Dr. Darby whether it is worth rx. with another few days of steroids - may reduce radicular inflammation Can increase Toradol po to 30mg bid.
--- NOTE | 2018-06-29 17:39 | PN ---
Teaching Attending Note Name of Resident: Idania Rees ATTENDING PHYSICIAN STATEMENT I saw and evaluated the patient. I reviewed the resident's note and discussed the case with the resident. I agree with the resident's findings and plan as documented. SUBJECTIVE: OBJECTIVE: Vital Signs Period Temp Pulse Resp BP Sys/Bee Pulse Ox Last 24 Hr 98 F-98.5 F 70-85 18-20 90-136/52-78 98-98 Laboratory Results - last 24 hr 06/28/18 06/28/18 06/29/18 17:15 21:52 06:00 WBC 11.0 H RBC 4.24 Hgb 13.5 Hct 37.9 MCV 89.3 MCH 31.7 MCHC 35.5 RDW 14.1 Plt Count 183 MPV 10.4 Absolute Neuts (auto) 6.9 Neutrophils % 63.0 D Lymphocytes % 28.1 D Monocytes % 5.3 Eosinophils % 3.2 Basophils % 0.4 Nucleated RBC % 0 Sodium Potassium Chloride Carbon Dioxide Anion Gap BUN Creatinine Creat Clearance w eGFR POC Glucometer 203 213 Random Glucose Calcium 06/29/18 06/29/18 06/29/18 06:00 06:19 10:55 WBC RBC Hgb Hct MCV MCH MCHC RDW Plt Count MPV Absolute Neuts (auto) Neutrophils % Lymphocytes % Monocytes % Eosinophils % Basophils % Nucleated RBC % Sodium 138 Potassium 4.5 Chloride 107 Carbon Dioxide 25 Anion Gap 7 L BUN 12 Creatinine 0.5 L Creat Clearance w eGFR > 60 POC Glucometer 163 233 Random Glucose 158 H Calcium 8.1 L Current Medications Generic Name Dose Route Start Last Admin Trade Name Freq PRN Reason Stop Dose Admin Acetaminophen 650 mg 06/26/18 13:28 06/29/18 05:07 Tylenol - PO 650 mg Q6H PRN Administration Fever Or Pain Enoxaparin Sodium 40 mg 06/26/18 10:00 06/29/18 09:41 Lovenox - SQ 40 mg DAILY [facility] Administration Insulin Aspart 1 vial 06/26/18 07:00 06/29/18 17:04 Novolog Vial Sliding Scale - SQ 6 units ACHS [facility] Administration Protocol Ketorolac Tromethamine 10 mg 06/26/18 15:00 06/29/18 11:08 Toradol PO 07/01/18 14:59 10 mg Q6HPO [facility] Administration Oxycodone HCl 5 mg 06/27/18 16:24 06/29/18 04:01 Roxicodone - PO 5 mg Q6H PRN Administration PAIN LEVEL 6-10 Pregabalin 200 mg 06/27/18 16:08 06/29/18 09:41 Lyrica - PO 200 mg BID [facility] Administration Valacyclovir HCl 1,000 mg 06/26/18 10:00 06/29/18 09:42 Valtrex - PO 1,000 mg BID [facility] Administration ASSESSMENT AND PLAN:
[2018-06-29] MEDS: KETOROLAC TROMETHAMINE 30 MG/1 ML VIAL IVPUSH SCH (21:47)
[2018-06-29] MEDS ORDERED: KETOROLAC TROMETHAMINE 10 MG TABLET PO SCH (22:00)
[2018-06-30] MEDS: INSULIN SLIDING SCALE (NOVOLOG) 1 VIAL SQ SCH ×4 (06:38→21:45)
[2018-06-30] MEDS ORDERED: PT OWN MED DRAWER 7, Y5N ONE ×2 (06:45→08:46)
[2018-06-30] MEDS: oxyCODONE HCL 5 MG TABLET PO PRN ×2 (06:46→13:28)
[2018-06-30] MEDS: ACETAMINOPHEN 325 MG TABLET (FP) PO PRN ×3 (06:46→18:51)
--- NOTE | 2018-06-30 08:09 | PN ---
Teaching Attending Note Name of Resident: Jackson Nice ATTENDING PHYSICIAN STATEMENT I saw and evaluated the patient. I reviewed the resident's note and discussed the case with the resident. I agree with the resident's findings and plan as documented. SUBJECTIVE: C/O Rt sided neck and scapular scapular pain and tenderness OBJECTIVE: Vital Signs Temperature 97.8 F 06/30/18 05:53 Pulse Rate 71 06/30/18 05:53 Respiratory Rate 20 06/30/18 05:53 Blood Pressure 108/67 06/30/18 05:53 O2 Sat by Pulse Oximetry (%) 98 06/29/18 19:59 P Exam; Young F not in distress HEENT: Mm moist, no anemia NECK: Tenderness on passive movement spasm of suprascapular muscle fold on Rt CHEST: CTA B/L CVS: S1S2 r ABD: No distention, non tender Bs + EXT: No george a, feet, no calf tenderness, STRETCH PRESS OPERATOR: Grossly non focal non localising. CBC, BMP 06/29/18 06:00 06/29/18 06:00 Active Medications Active Medications Acetaminophen (Tylenol -) 650 mg PO Q6H PRN PRN Reason: Fever Or Pain Last Admin: 06/30/18 13:26 Dose: 650 mg Cyclobenzaprine HCl (Cyclobenzaprine Hcl) 5 mg PO DAILY [facility] Enoxaparin Sodium (Lovenox -) 40 mg SQ DAILY [facility] Last Admin: 06/30/18 13:23 Dose: Not Given Insulin Aspart (Novolog Vial Sliding Scale -) 1 vial SQ [facility]; Protocol Last Admin: 06/30/18 11:59 Dose: 6 units Insulin Detemir (Levemir Vial) 10 units SQ [facility] Ketorolac Tromethamine (Toradol Injection -) 30 mg IVPUSH BID [facility] Stop: 07/04/18 21:59 Last Admin: 06/30/18 13:23 Dose: Not Given Oxycodone HCl (Roxicodone -) 5 mg PO Q6H PRN PRN Reason: PAIN LEVEL 6-10 Last Admin: 06/30/18 13:28 Dose: 5 mg Pregabalin (Lyrica -) 200 mg PO BID [facility] Last Admin: 06/30/18 10:01 Dose: 200 mg ASSESSMENT AND PLAN:32 year old female with history of diabetes mellitus (not on treatment) presents with complaint of right sided neck pain, upper and lower extremity weakness. Impression: Possibility of post herpetic Neuralgia on Rt temporal area rt shoulder pain essentially is musculoskeletal origin and Le tingling can be due to diabetic Neuropathy , some how Neurology wants to perform LP to r/O STRETCH PRESS OPERATOR inflammation/disseminated HZ Plan; Add Flexeril PT evaluation No Indication for Valcyclovir add Basal insulin as HBa1 C 11 Rest cont current management, Problem List - Problems (1) Post herpetic neuralgia Assessment/Plan: Id and Neuro recommended LP cont Lyrica Code(s): B02.29 - OTHER POSTHERPETIC NERVOUS SYSTEM INVOLVEMENT (2) T2DM (type 2 diabetes mellitus) Assessment/Plan: add basal insulin as Hba1C > 11 cont correction dose Code(s): E11.9 - TYPE 2 DIABETES MELLITUS WITHOUT COMPLICATIONS (3) Neck pain Assessment/Plan: add Felexeril Code(s): M54.2 - CERVICALGIA
[2018-06-30] MEDS: valACYclovir HCL 500 MG TABLET (FP) PO SCH (10:01)
[2018-06-30] MEDS: PREGABALIN 100 MG CAPSULE PO SCH ×2 (10:01→21:44)
[2018-06-30 11:50] LABS: INR 0.91 (0.83-1.09); PROTHROMBIN TIME (PATIENT) 10.7 SEC (9.7-13.0)
[2018-06-30] MEDS ORDERED: INSULIN (NOVOLOG) ASPART 100 UNITS/ML 10ML VIAL ONE ×2 (11:53→20:56)
[2018-06-30] MEDS: KETOROLAC TROMETHAMINE 30 MG/1 ML VIAL IVPUSH SCH (13:23)
[2018-06-30] MEDS: ENOXAPARIN NA (PORCINE) 40 MG/0.4 ML DISP.SYRIN SQ SCH (13:23)
--- NOTE | 2018-06-30 13:37 | PN ---
Progress Note, Physician History of Present Illness: stable says pain better no issues still with shoulder pain - Current Medication List Current Medications: Active Medications Acetaminophen (Tylenol -) 650 mg PO Q6H PRN PRN Reason: Fever Or Pain Last Admin: 06/30/18 13:26 Dose: 650 mg Cyclobenzaprine HCl (Cyclobenzaprine Hcl) 5 mg PO DAILY [facility] Enoxaparin Sodium (Lovenox -) 40 mg SQ DAILY [facility] Last Admin: 06/30/18 13:23 Dose: Not Given Insulin Aspart (Novolog Vial Sliding Scale -) 1 vial SQ ACHS [facility]; Protocol Last Admin: 06/30/18 11:59 Dose: 6 units Ketorolac Tromethamine (Toradol Injection -) 30 mg IVPUSH BID [facility] Stop: 07/04/18 21:59 Last Admin: 06/30/18 13:23 Dose: Not Given Oxycodone HCl (Roxicodone -) 5 mg PO Q6H PRN PRN Reason: PAIN LEVEL 6-10 Last Admin: 06/30/18 13:28 Dose: 5 mg Pregabalin (Lyrica -) 200 mg PO BID [facility] Last Admin: 06/30/18 10:01 Dose: 200 mg Valacyclovir HCl (Valtrex -) 1,000 mg PO BID [facility] Last Admin: 06/30/18 10:01 Dose: 1,000 mg - Objective Vital Signs: Vital Signs Temperature 97.8 F 06/30/18 05:53 Pulse Rate 71 06/30/18 05:53 Respiratory Rate 20 06/30/18 05:53 Blood Pressure 108/67 06/30/18 05:53 O2 Sat by Pulse Oximetry (%) 98 06/29/18 19:59 Constitutional: Yes: No Distress, Calm Cardiovascular: Yes: Regular Rate and Rhythm Respiratory: Yes: Regular, CTA Bilaterally Gastrointestinal: Yes: Normal Bowel Sounds, Soft Musculoskeletal: Yes: WNL Extremities: Yes: WNL Neurological: Yes: Alert, Oriented Psychiatric: Yes: Alert, Oriented Labs: CBC, BMP 06/29/18 06:00 06/29/18 06:00 INR, PTT INR 0.91 (0.83-1.09) 06/30/18 09:31 Assessment/Plan Problem List - Problem (1) Headache Code(s): R51 - HEADACHE (2) Right hand weakness Code(s): R29.898 - OTH SYMPTOMS AND SIGNS INVOLVING THE MUSCULOSKELETAL SYSTEM (3) Hyperglycemia Code(s): R73.9 - HYPERGLYCEMIA, UNSPECIFIED 4 shingles plan continue current mgmt i think maybe physio will help her rest as per the team monitor for pain will see what neuro does will stop valcylovir
--- NOTE | 2018-06-30 15:45 | PN ---
Physical Exam: SUBJECTIVE: Patient seen and examined at bedside this morning. She endorses slight improvement of her gait and right neck pain. She still feels right upper and lower extremity weakness. Denies subjective fevers or chills. OBJECTIVE: Vital Signs Period Temp Pulse Resp BP Sys/Bee Pulse Ox Last 24 Hr 97.8 F-98.8 F 71-88 18-20 108-128/60-78 98-100 GENERAL: The patient is awake, alert, and fully oriented, in no acute distress. HEAD: Normocephalic, atraumatic. EYES: PERRL. Right eye unable to abduct with lateral gaze. No horizontal or vertical nystagmus noted. Sclera not injected, no ptosis bilaterally. ENT: Oropharynx clear without exudates, moist mucous membranes. NECK: Supple without lymphadenopathy, or thyromegaly. LUNGS: Good inspiratory effort. Breath sounds equal, clear to auscultation bilaterally. No wheezes, no crackles. No accessory muscle use. HEART: Regular rate and rhythm. S1, S2 auscultated without murmur, rub or gallop. ABDOMEN: Soft, nontender to light and deep palpation X4 quadrants, nondistended. Normoactive bowel sounds, no guarding, no rebound tenderness. No hepatosplenomegaly palpated or percussed. EXTREMITIES: 2+ radial and dorsalis pedis pulses bilaterally. Warm, well- perfused, no lower extremity edema bilaterally. NEUROLOGICAL: Facial sensation diminished in right sided V1 ,and V3 distribution. Sensation diminished in right upper and lower extremity. Strength 3/5 right upper extremity, 5/5 left upper extremity. Strength 3/5 right lower extremity, 5/5 left lower extremity. Normal speech. Negative Romberg sign. Gait less ataxic- improved from yesterday. PSYCH: Normal mood, normal affect upon my encounter today. SKIN: Warm, dry. Laboratory Results - last 24 hr 06/29/18 06/29/18 06/30/18 17:03 21:03 06:38 PT with INR INR POC Glucometer 256 213 216 06/30/18 06/30/18 09:31 11:12 PT with INR 10.70 INR 0.91 POC Glucometer 281 Active Medications Generic Name Dose Route Start Last Admin Trade Name Freq PRN Reason Stop Dose Admin Acetaminophen 650 mg 06/26/18 13:28 06/30/18 13:26 Tylenol - PO 650 mg Q6H PRN Administration Fever Or Pain Cyclobenzaprine HCl 5 mg 06/30/18 15:41 Flexeril - PO TID PRN PAIN LEVEL 6-10 Enoxaparin Sodium 40 mg 06/26/18 10:00 06/30/18 13:23 Lovenox - SQ Not Given DAILY [facility] Insulin Aspart 1 vial 06/26/18 07:00 06/30/18 11:59 Novolog Vial Sliding Scale - SQ 6 units ACHS [facility] Administration Protocol Insulin Detemir 10 units 06/30/18 22:00 Levemir Vial SQ HS [facility] Ketorolac Tromethamine 30 mg 06/29/18 22:00 06/30/18 13:23 Toradol Injection - IVPUSH 07/04/18 21:59 Not Given BID [facility] Oxycodone HCl 5 mg 06/27/18 16:24 06/30/18 13:28 Roxicodone - PO 5 mg Q6H PRN Administration PAIN LEVEL 6-10 Pregabalin 200 mg 06/27/18 16:08 06/30/18 10:01 Lyrica - PO 200 mg BID [facility] Administration ASSESSMENT/PLAN: Patient is a 32 year old female with history of diabetes mellitus (not on treatment) presents with complaint of right sided neck pain, upper and lower extremity weakness. Right sided hemiplegia -Possibly post herpetic radiculitis. Multiple sclerosis unlikely as no demyelinating lesions noted on MRI. -CT head shows no focal intracranial lesion. -CT cervical spine shows no fracture, or subluxation -MRI brain no evidence of edema, hemorrhage, subacute infarct, or demyelinating process. -MRI neck shows no evidence of disc herniation. Normal signal intensity of spinal cord without abnormal enhancement. -Neurology consult (Dr. Clark) appreciated. -Patient for CT guided lumbar puncture tomorrow -Lyrica increased to 200mg PO BID -Oxycodone 5mg PO Q6H for breakthrough pain -Flexeril 5mg PO TID PRN -Holding Toradol in anticipation of LP Questionable herpes zoster -Patient endorses painful vesicles within right sided V1 distribution that crusted over several days prior to hospital presentation. -Patient completed Valacyclovir treatment -ID consult (Dr. Darby) appreciated. Diabetes mellitus -HbA1c 11.5 -Patient currently not on medication or treatment. Endorses that she was on Metformin several years ago, however stopped the medication to control her diabetes with diet, exercise. -Insulin sliding scale ACHS -Fingerstick blood glucose monitoring ACHS -Insulin levemir 10 units subq HS FEN -No IV fluids indicated -Follow BMP -Diabetic diet Prophylaxis -Lovenox held in anticipation of LP Disposition -Continue care in medical surgical floor Visit type - Emergency Visit Emergency Visit: Yes ED Registration Date: 06/29/18 Care time: The patient presented to the Emergency Department on the above date and was hospitalized for further evaluation of their emergent condition. - New Patient This patient is new to me today: No - Critical Care Critical Care patient: No - Discharge Referral Referred to [facility] Med P.C.: No
[2018-06-30] MEDS: CYCLOBENZAPRINE HCL 10 MG TABLET (FP) PO PRN ×2 (16:17→21:44)
[2018-06-30] MEDS: INSULIN (LEVEMIR) 100 UNITS/ML UNITS SQ SCH (21:44)
[2018-07-01] MEDS: oxyCODONE HCL 5 MG TABLET PO PRN ×3 (06:04→18:43)
[2018-07-01] MEDS: INSULIN SLIDING SCALE (NOVOLOG) 1 VIAL SQ SCH ×4 (06:05→22:41)
[2018-07-01 06:56] LABS: HEMOGLOBIN 13.1 GM/dL (10.7-15.3); MCH 30.1 pg (25.7-33.7); MCHC 33.5 g/dl (32.0-36.0); MEAN CELL VOLUME 89.8 fl (80-96); MEAN PLT VOLUME 9.7 fl (7.5-11.1); PLATELET COUNT 212 K/MM3 (134-434); RBC 4.35 M/mm3 (3.60-5.2); RDW 14.2 % (11.6-15.6)
[2018-07-01 07:18] LABS: ALBUMIN 2.8 g/dl (3.4-5.0); ALK PHOS 78 U/L (45-117); ANION GAP 4 MMOL/L (8-16); BILIRUBIN,TOTAL 0.4 mg/dL (0.2-1); BLOOD UREA NITROGEN 9 mg/dL (7-18); CALCIUM 7.7 mg/dL (8.5-10.1); CHLORIDE 109 mmol/L (98-107); CO2 27 mmol/L (21-32); CREATININE 0.6 mg/dL (0.55-1.3); GLUCOSE,RANDOM 168 mg/dL (74-106); POTASSIUM 3.9 mmol/L (3.5-5.1); SGOT/AST 110 U/L (15-37); SGPT/ALT 185 U/L (13-61); SODIUM 139 mmol/L (136-145); TOT PROT 5.4 g/dl (6.4-8.2)
--- NOTE | 2018-07-01 08:55 | PN ---
Progress Note, Physician Chief Complaint: Pain and numbness on right side History of Present Illness: 32 year old woman, previously healthy who two weeks ago noted the onset of pain in the back of her neck. Later that day a coworker pointed out a rash on her right forehead. The rash consisted of "red bumps" that were extremely painful , stinging in quality, and as severe as any pain she could imagine. She went to urgent care where she was treated for a zoster (shingles) infection. She then noticed some right sided weakness and went to a neurologist, Dr. Meléndez, who sent her to ID and ID felt that this was not likely zoster and possibly another virus. She was referred to the ED due to ongoing pain. She describes the pain as severe and located on the face and right side of the body. She notes that her numbness and weakness have improved a little since the onset, but she is still in pain. There is no more rash. Since the last time that I saw her her numbness and tingling have resolved and she is left with severe pain, though it is at a 6/10, still an improvement. Awaits LP under fluoroscopy. - Current Medication List Current Medications: Active Medications Acetaminophen (Tylenol -) 650 mg PO Q6H PRN PRN Reason: Fever Or Pain Last Admin: 06/30/18 18:51 Dose: 650 mg Cyclobenzaprine HCl (Flexeril -) 5 mg PO TID PRN PRN Reason: PAIN LEVEL 6-10 Last Admin: 06/30/18 21:44 Dose: 5 mg Enoxaparin Sodium (Lovenox -) 40 mg SQ DAILY [facility] Last Admin: 06/30/18 13:23 Dose: Not Given Insulin Aspart (Novolog Vial Sliding Scale -) 1 vial SQ [facility]; Protocol Last Admin: 07/01/18 06:05 Dose: 2 units Insulin Detemir (Levemir Vial) 10 units SQ HS [facility] Last Admin: 06/30/18 21:44 Dose: 10 units Ketorolac Tromethamine (Toradol Injection -) 30 mg IVPUSH BID [facility] Stop: 07/04/18 21:59 Last Admin: 06/30/18 13:23 Dose: Not Given Oxycodone HCl (Roxicodone -) 5 mg PO Q6H PRN PRN Reason: PAIN LEVEL 6-10 Last Admin: 07/01/18 06:04 Dose: 5 mg Pregabalin (Lyrica -) 200 mg PO BID [facility] Last Admin: 06/30/18 21:44 Dose: 200 mg - Objective Vital Signs: Vital Signs Temperature 97.6 F 07/01/18 05:59 Pulse Rate 71 07/01/18 06:00 Respiratory Rate 20 07/01/18 06:00 Blood Pressure 114/63 07/01/18 06:00 O2 Sat by Pulse Oximetry (%) 100 06/30/18 21:00 Neurological: Yes: Other (tenderness in skin on right.) Labs: CBC, BMP 07/01/18 06:30 07/01/18 06:30 INR, PTT INR 0.91 (0.83-1.09) 06/30/18 09:31 Problem List - Problems (1) Right hemiparesis Code(s): G81.91 - HEMIPLEGIA, UNSPECIFIED AFFECTING RIGHT DOMINANT SIDE (2) Headache Code(s): R51 - HEADACHE Qualifiers: Headache type: unspecified Headache chronicity pattern: unspecified pattern Intractability: not intractable Qualified Code(s): R51 - Headache (3) Neck pain Code(s): M54.2 - CERVICALGIA Assessment/Plan Unusual constellation of findings in patient with recently either zoster or other viral infection. MS and transverse myelitis essentially ruled out with negative MRI's. She is to get LP under fluoroscopic guidance. Clinically she is improving, and will optimize pain control with LYrica Thanks.
[2018-07-01] MEDS: PREGABALIN 100 MG CAPSULE PO SCH ×2 (09:03→22:00)
--- NOTE | 2018-07-01 09:58 | PN ---
Physical Exam: SUBJECTIVE: Patient seen and examined at bedside this morning. She continues to endorse right sided neck pain, with right sided upper, lower extremity weakness. Pain is palliated temporarily with oxycodone, lyrica, and tylenol. She denies subjective fevers or chills. OBJECTIVE: Vital Signs Period Temp Pulse Resp BP Sys/Bee Pulse Ox Last 24 Hr 97.6 F-98.2 F 71-88 20-20 114-128/63-78 100 GENERAL: The patient is awake, alert, and fully oriented, in no acute distress. HEAD: Normocephalic, atraumatic. EYES: PERRL. Right eye unable to abduct with lateral gaze. No horizontal or vertical nystagmus noted. Sclera not injected, no ptosis bilaterally. ENT: Oropharynx clear without exudates, moist mucous membranes. NECK: Supple without lymphadenopathy, or thyromegaly. LUNGS: Good inspiratory effort. Breath sounds equal, clear to auscultation bilaterally. No wheezes, no crackles. No accessory muscle use. HEART: Regular rate and rhythm. S1, S2 auscultated without murmur, rub or gallop. ABDOMEN: Soft, nondistended. Tender to palpation at right upper quadrant, and minimally at right lower quadrant. Normoactive bowel sounds X4 quadrants, no guarding, no rebound tenderness. No hepatosplenomegaly palpated or percussed. EXTREMITIES: 2+ radial and dorsalis pedis pulses bilaterally. Warm, well- perfused, no lower extremity edema bilaterally. NEUROLOGICAL: Facial sensation diminished in right sided V1 ,and V3 distribution. Sensation diminished in right upper and lower extremity. Strength 3/5 right upper extremity, 5/5 left upper extremity. Strength 3/5 right lower extremity, 5/5 left lower extremity. Normal speech. Negative Romberg sign. Gait less ataxic- improved from yesterday. PSYCH: Normal mood, normal affect upon my encounter today. SKIN: Warm, dry. Laboratory Results - last 24 hr 06/30/18 06/30/18 06/30/18 09:31 11:12 16:49 WBC RBC Hgb Hct MCV MCH MCHC RDW Plt Count MPV PT with INR 10.70 INR 0.91 Sodium Potassium Chloride Carbon Dioxide Anion Gap BUN Creatinine Creat Clearance w eGFR POC Glucometer 281 314 Random Glucose Calcium Total Bilirubin AST ALT Alkaline Phosphatase Total Protein Albumin 06/30/18 07/01/18 07/01/18 21:37 05:58 06:30 WBC 8.0 RBC 4.35 Hgb 13.1 Hct 39.0 MCV 89.8 MCH 30.1 MCHC 33.5 RDW 14.2 Plt Count 212 MPV 9.7 PT with INR INR Sodium Potassium Chloride Carbon Dioxide Anion Gap BUN Creatinine Creat Clearance w eGFR POC Glucometer 184 191 Random Glucose Calcium Total Bilirubin AST ALT Alkaline Phosphatase Total Protein Albumin 07/01/18 06:30 WBC RBC Hgb Hct MCV MCH MCHC RDW Plt Count MPV PT with INR INR Sodium 139 Potassium 3.9 Chloride 109 H Carbon Dioxide 27 Anion Gap 4 L BUN 9 Creatinine 0.6 Creat Clearance w eGFR > 60 POC Glucometer Random Glucose 168 H Calcium 7.7 L Total Bilirubin 0.4 AST 110 H ALT 185 H Alkaline Phosphatase 78 Total Protein 5.4 L Albumin 2.8 L Active Medications Generic Name Dose Route Start Last Admin Trade Name Freq PRN Reason Stop Dose Admin Acetaminophen 650 mg 06/26/18 13:28 06/30/18 18:51 Tylenol - PO 650 mg Q6H PRN Administration Fever Or Pain Cyclobenzaprine HCl 5 mg 06/30/18 15:41 06/30/18 21:44 Flexeril - PO 5 mg TID PRN Administration PAIN LEVEL 6-10 Enoxaparin Sodium 40 mg 06/26/18 10:00 06/30/18 13:23 Lovenox - SQ Not Given DAILY [facility] Insulin Aspart 1 vial 06/26/18 07:00 07/01/18 06:05 Novolog Vial Sliding Scale - SQ 2 units ACHS [facility] Administration Protocol Insulin Detemir 10 units 06/30/18 22:00 06/30/18 21:44 Levemir Vial SQ 10 units HS [facility] Administration Ketorolac Tromethamine 30 mg 06/29/18 22:00 06/30/18 13:23 Toradol Injection - IVPUSH 07/04/18 21:59 Not Given BID [facility] Oxycodone HCl 5 mg 06/27/18 16:24 07/01/18 06:04 Roxicodone - PO 5 mg Q6H PRN Administration PAIN LEVEL 6-10 Pregabalin 300 mg 07/01/18 10:00 07/01/18 09:03 Lyrica - PO 300 mg BID [facility] Administration IMAGING -CT head shows no focal intracranial lesion. -CT cervical spine shows no fracture, or subluxation -MRI brain no evidence of edema, hemorrhage, subacute infarct, or demyelinating process. -MRI neck shows no evidence of disc herniation. Normal signal intensity of spinal cord without abnormal enhancement. ASSESSMENT/PLAN: Patient is a 32 year old female with history of diabetes mellitus (not on treatment) presents with complaint of right sided neck pain, upper and lower extremity weakness. Right sided hemiplegia -Possibly post herpetic radiculitis. Multiple sclerosis unlikely as no demyelinating lesions noted on MRI. -Patient is s/p fluroscopy guided lumbar puncture -Neurology consult (Dr. Clark) appreciated. -Lyrica increased to 300mg PO BID -Oxycodone 5mg PO Q6H for breakthrough pain -Flexeril 5mg PO TID PRN -Toradol 30mg IV BID Questionable herpes zoster -Patient endorsed painful vesicles within right sided V1 distribution that crusted over several days prior to hospital presentation. -Patient completed Valacyclovir treatment -ID consult (Dr. Darby) appreciated. Transaminitis -[id number], ALT 185, alkaline phosphatase 78, total bilirubin 0.4 -Unclear etiology. None of the medications she is on would likely cause increase in AST, ALT. Less likely to be biliary in origin as total bilirubin is 0.4. -Follow right upper quadrant ultrasound Diabetes mellitus -HbA1c 11.5 -Patient currently not on medication or treatment. Endorses that she was on Metformin several years ago, however stopped the medication to control her diabetes with diet, exercise. -Insulin sliding scale ACHS -Fingerstick blood glucose monitoring ACHS -Insulin levemir 10 units subq HS FEN -No IV fluids indicated -Follow BMP -Diabetic diet Prophylaxis -Lovenox 40mg subq daily Disposition -Continue care in medical surgical floor Visit type - Emergency Visit Emergency Visit: Yes ED Registration Date: 06/29/18 Care time: The patient presented to the Emergency Department on the above date and was hospitalized for further evaluation of their emergent condition. - New Patient This patient is new to me today: No - Critical Care Critical Care patient: No - Discharge Referral Referred to [facility] Med P.C.: No
[2018-07-01] MEDS ORDERED: CYCLOBENZAPRINE HCL 5 MG TABLET PO SCH (10:00)
[2018-07-01 12:38] LABS: BF GLUCOSE (CSF ONLY) 93 mg/dL (40-70)
--- NOTE | 2018-07-01 13:02 | PN ---
Progress Note, Physician History of Present Illness: no new issues had Lp done now with headaches - Current Medication List Current Medications: Active Medications Acetaminophen (Tylenol -) 650 mg PO Q6H PRN PRN Reason: Fever Or Pain Last Admin: 06/30/18 18:51 Dose: 650 mg Cyclobenzaprine HCl (Flexeril -) 5 mg PO TID PRN PRN Reason: PAIN LEVEL 6-10 Last Admin: 06/30/18 21:44 Dose: 5 mg Enoxaparin Sodium (Lovenox -) 40 mg SQ DAILY [facility] Last Admin: 06/30/18 13:23 Dose: Not Given Insulin Aspart (Novolog Vial Sliding Scale -) 1 vial SQ [facility]; Protocol Last Admin: 07/01/18 11:33 Dose: 4 units Insulin Detemir (Levemir Vial) 10 units SQ HS [facility] Last Admin: 06/30/18 21:44 Dose: 10 units Ketorolac Tromethamine (Toradol Injection -) 30 mg IVPUSH BID [facility] Stop: 07/04/18 21:59 Last Admin: 06/30/18 13:23 Dose: Not Given Oxycodone HCl (Roxicodone -) 5 mg PO Q6H PRN PRN Reason: PAIN LEVEL 6-10 Last Admin: 07/01/18 12:33 Dose: 5 mg Pregabalin (Lyrica -) 300 mg PO BID [facility] Last Admin: 07/01/18 09:03 Dose: 300 mg - Objective Vital Signs: Vital Signs Temperature 97.8 F 07/01/18 10:00 Pulse Rate 85 07/01/18 10:00 Respiratory Rate 20 07/01/18 10:00 Blood Pressure 119/72 07/01/18 10:00 O2 Sat by Pulse Oximetry (%) 100 07/01/18 09:00 Constitutional: Yes: Calm, Mild Distress Eyes: Yes: Conjunctiva Clear Neck: Yes: Supple Cardiovascular: Yes: Regular Rate and Rhythm Respiratory: Yes: Regular, CTA Bilaterally Gastrointestinal: Yes: Normal Bowel Sounds, Soft Musculoskeletal: Yes: WNL Extremities: Yes: WNL Neurological: Yes: Alert, Oriented, Other (headache) Psychiatric: Yes: Alert, Oriented Labs: CBC, BMP 07/01/18 06:30 07/01/18 06:30 INR, PTT INR 0.91 (0.83-1.09) 06/30/18 09:31 Assessment/Plan Problem List - Problem (1) Headache Code(s): R51 - HEADACHE (2) Right hand weakness Code(s): R29.898 - OTH SYMPTOMS AND SIGNS INVOLVING THE MUSCULOSKELETAL SYSTEM (3) Hyperglycemia Code(s): R73.9 - HYPERGLYCEMIA, UNSPECIFIED 4 shingles plan continue current mgmt await for LP results rest as per the team hydration if needed flat position
[2018-07-01] MEDS ORDERED: SODIUM CHLORIDE 500 ML IV STA (13:16)
[2018-07-01 13:40] LABS: CSF APPEARANCE CLEAR; CSF WBC 1
--- NOTE | 2018-07-01 16:09 | PN ---
Teaching Attending Note Name of Resident: Jackson Nice ATTENDING PHYSICIAN STATEMENT I saw and evaluated the patient. I reviewed the resident's note and discussed the case with the resident. I agree with the resident's findings and plan as documented. SUBJECTIVE: Still complains of altered sensationand weakness R side and neck pain but improved from yesterday. OBJECTIVE: Afebrile/Hemodynamically Stable. Last Vital Signs Temp Pulse Resp BP Pulse Ox 98.3 F 79 20 139/87 100 07/01/18 15:31 07/01/18 15:31 07/01/18 15:31 07/01/18 15:31 07/01/18 09:00 HEENT - Atraumatic, Normocephalic. Heart - S1, S2, RRR Lungs - clear to auscultation Abdomen - Soft, mild tenderness RUQ. Bowel Sounds normal. Extremities - no edema/calf tenderness Neuro - AAO x 3. HANS. EOMI. CN II-XII intact. Mild decrease in Power RUE and RLE. Laboratory Results - last 24 hr 06/30/18 06/30/18 07/01/18 16:49 21:37 05:58 WBC RBC Hgb Hct MCV MCH MCHC RDW Plt Count MPV Sodium Potassium Chloride Carbon Dioxide Anion Gap BUN Creatinine Creat Clearance w eGFR POC Glucometer 314 184 191 Random Glucose Calcium Total Bilirubin AST ALT Alkaline Phosphatase Total Protein Albumin CSF Appearance CSF Color CSF WBC CSF RBC CSF Neutrophils CSF Lymphocytes CSF Eosinophils CSF Basophils CSF Macrophages CSF Plasma Cells CSF Diff Comment CSF Comment CSF Glucose CSF Total Protein 07/01/18 07/01/18 07/01/18 06:30 06:30 11:00 WBC 8.0 RBC 4.35 Hgb 13.1 Hct 39.0 MCV 89.8 MCH 30.1 MCHC 33.5 RDW 14.2 Plt Count 212 MPV 9.7 Sodium 139 Potassium 3.9 Chloride 109 H Carbon Dioxide 27 Anion Gap 4 L BUN 9 Creatinine 0.6 Creat Clearance w eGFR > 60 POC Glucometer Random Glucose 168 H Calcium 7.7 L Total Bilirubin 0.4 AST 110 H ALT 185 H Alkaline Phosphatase 78 Total Protein 5.4 L Albumin 2.8 L CSF Appearance Clear CSF Color Clear CSF WBC 1 CSF RBC 0 CSF Neutrophils No Result Required. CSF Lymphocytes No Result Required. CSF Eosinophils No Result Required. CSF Basophils No Result Required. CSF Macrophages No Result Required. CSF Plasma Cells No Result Required. CSF Diff Comment Only 1 wbc found CSF Comment Clear CSF Glucose 93 H CSF Total Protein 25 07/01/18 11:24 WBC RBC Hgb Hct MCV MCH MCHC RDW Plt Count MPV Sodium Potassium Chloride Carbon Dioxide Anion Gap BUN Creatinine Creat Clearance w eGFR POC Glucometer 217 Random Glucose Calcium Total Bilirubin AST ALT Alkaline Phosphatase Total Protein Albumin CSF Appearance CSF Color CSF WBC CSF RBC CSF Neutrophils CSF Lymphocytes CSF Eosinophils CSF Basophils CSF Macrophages CSF Plasma Cells CSF Diff Comment CSF Comment CSF Glucose CSF Total Protein Current Medications Generic Name Dose Route Start Last Admin Trade Name Freq PRN Reason Stop Dose Admin Cyclobenzaprine HCl 5 mg 06/30/18 15:41 06/30/18 21:44 Flexeril - PO 5 mg TID PRN Administration PAIN LEVEL 6-10 Enoxaparin Sodium 40 mg 06/26/18 10:00 06/30/18 13:23 Lovenox - SQ Not Given DAILY [facility] BEDS AT [facility] Insulin Aspart 1 vial 06/26/18 07:00 07/01/18 11:33 Novolog Vial Sliding Scale - SQ 4 units ACHS COUNTS INCLUDE 234 BEDS AT THE [facility] Administration Protocol Insulin Detemir 10 units 06/30/18 22:00 06/30/18 21:44 Levemir Vial SQ 10 units HS DANISH Administration Ketorolac Tromethamine 30 mg 06/29/18 22:00 06/30/18 13:23 Toradol Injection - IVPUSH 07/04/18 21:59 Not Given BID COUNTS INCLUDE 234 BEDS AT THE [facility] Oxycodone HCl 5 mg 06/27/18 16:24 07/01/18 12:33 Roxicodone - PO 5 mg Q6H PRN Administration PAIN LEVEL 6-10 Pregabalin 300 mg 07/01/18 10:00 07/01/18 09:03 Lyrica - PO 300 mg BID DANISH Administration ASSESSMENT AND PLAN: 32 year old female, with history of DM2 (previously on Metformin), presents with neck pain, radiating to shoulder with altered sensation and weakness R U and L extremities. She had associated painful rash on R temporal region, which has crusted over after outpatient treatment with Valacyclovir. 1. R sided weakness/altered sensation associated with neck pain and herpetic rash V1 distribution Possible Herpetic Radiculitis. Completed Valacyclovir treatment with improvement in rash. MS excluded on MRI Brain/Neck s/p LP under Fluoroscopy - awaiting final results. Neurology following. Continue Flexeril, Lyrica increased to 300mg PO BID, and Oxy prn ID following. 2. Acute Transaminitis, etiology unclear. AST 110 ALT 185 Abdominal US requested. If persistent, will send Hepatitis panel and consult GI 3. DM 2 - uncontrolled - not on medication A1C 11.5 Currently on Levemir 10 units qhs and Insulin sliding scale ACHS To start oral regimen on discharge. DVT Px - Lovenox.
[2018-07-01 16:46] LABS: CSF COLOR COLORLESS
[2018-07-01] MEDS ORDERED: PT OWN MED DRAWER 7, Y5N ONE (17:12)
[2018-07-01] MEDS: CYCLOBENZAPRINE HCL 10 MG TABLET (FP) PO PRN (17:22)
[2018-07-01] MEDS: KETOROLAC TROMETHAMINE 30 MG/1 ML VIAL IVPUSH SCH (22:33)
[2018-07-01] MEDS: INSULIN (LEVEMIR) 100 UNITS/ML UNITS SQ SCH (22:42)
[2018-07-02] MEDS: oxyCODONE HCL 5 MG TABLET PO PRN ×4 (00:40→21:47)
[2018-07-02] MEDS: CYCLOBENZAPRINE HCL 10 MG TABLET (FP) PO PRN ×2 (00:41→21:47)
[2018-07-02] MEDS: INSULIN SLIDING SCALE (NOVOLOG) 1 VIAL SQ SCH ×4 (06:27→21:50)
[2018-07-02 07:34] LABS: HEMATOCRIT 42.4 % (32.4-45.2); HEMOGLOBIN 14.3 GM/dL (10.7-15.3); MCH 30.3 pg (25.7-33.7); MCHC 33.7 g/dl (32.0-36.0); MEAN PLT VOLUME 9.4 fl (7.5-11.1); PLATELET COUNT 236 K/MM3 (134-434); RBC 4.71 M/mm3 (3.60-5.2); RDW 14.6 % (11.6-15.6); WHITE BLOOD COUNT 7.1 K/mm3 (4.0-10.0)
[2018-07-02 07:58] LABS: ALBUMIN 3.2 g/dl (3.4-5.0); ALK PHOS 107 U/L (45-117); ANION GAP 6 MMOL/L (8-16); BILIRUBIN,TOTAL 0.3 mg/dL (0.2-1); BLOOD UREA NITROGEN 9 mg/dL (7-18); CALCIUM 8.3 mg/dL (8.5-10.1); CHLORIDE 106 mmol/L (98-107); CO2 30 mmol/L (21-32); CREATININE 0.6 mg/dL (0.55-1.3); GLUCOSE,RANDOM 106 mg/dL (74-106); POTASSIUM 4.2 mmol/L (3.5-5.1); SGOT/AST 98 U/L (15-37); SGPT/ALT 206 U/L (13-61); SODIUM 142 mmol/L (136-145); TOT PROT 6.3 g/dl (6.4-8.2)
[2018-07-02] MEDS: PREGABALIN 100 MG CAPSULE PO SCH ×2 (09:50→21:47)
[2018-07-02] MEDS: KETOROLAC TROMETHAMINE 30 MG/1 ML VIAL IVPUSH SCH (09:50)
--- NOTE | 2018-07-02 10:17 | PN ---
Progress Note, Physician History of Present Illness: 32 year old woman, previously healthy who two weeks ago noted the onset of pain in the back of her neck. Later that day a coworker pointed out a rash on her right forehead. The rash consisted of "red bumps" that were extremely painful , stinging in quality, and as severe as any pain she could imagine. She went to urgent care where she was treated for a zoster (shingles) infection. She then noticed some right sided weakness and went to a neurologist, Dr. Meléndez, who sent her to ID and ID felt that this was not likely zoster and possibly another virus. She was referred to the ED due to ongoing pain. She describes the pain as severe and located on the face and right side of the body. She notes that her numbness and weakness have improved a little since the onset, but she is still in pain. There is no more rash. FU : slight orthostatic JOY , thoough feels neck pain better LP - thus far (-), protein NL , MRI (-) elevated LFTs -admits was taking up to 6 advils a day when she had neck pain - Current Medication List Current Medications: Active Medications Cyclobenzaprine HCl (Flexeril -) 5 mg PO TID PRN PRN Reason: PAIN LEVEL 6-10 Last Admin: 07/02/18 00:41 Dose: 5 mg Enoxaparin Sodium (Lovenox -) 40 mg SQ DAILY [facility] Last Admin: 06/30/18 13:23 Dose: Not Given Insulin Aspart (Novolog Vial Sliding Scale -) 1 vial SQ [facility]; Protocol Last Admin: 07/02/18 06:27 Dose: Not Given Insulin Detemir (Levemir Vial) 10 units SQ [facility] Last Admin: 07/01/18 22:42 Dose: 10 units Ketorolac Tromethamine (Toradol Injection -) 30 mg IVPUSH BID [facility] Stop: 07/04/18 21:59 Last Admin: 07/02/18 09:50 Dose: 30 mg Oxycodone HCl (Roxicodone -) 5 mg PO Q6H PRN PRN Reason: PAIN LEVEL 6-10 Last Admin: 07/02/18 08:30 Dose: 5 mg Pregabalin (Lyrica -) 300 mg PO BID [facility] Last Admin: 07/02/18 09:50 Dose: 300 mg - Objective Vital Signs: Vital Signs Temperature 98 F 07/02/18 01:59 Pulse Rate 64 07/02/18 01:59 Respiratory Rate 18 07/02/18 01:59 Blood Pressure 116/68 07/02/18 01:59 O2 Sat by Pulse Oximetry (%) 100 07/01/18 20:19 Labs: CBC, BMP 07/02/18 06:30 07/02/18 06:30 INR, PTT INR 0.91 (0.83-1.09) 06/30/18 09:31 Problem List - Problems (1) Headache Code(s): R51 - HEADACHE Qualifiers: Headache type: unspecified Headache chronicity pattern: unspecified pattern Intractability: not intractable Qualified Code(s): R51 - Headache (2) Neck pain Code(s): M54.2 - CERVICALGIA Assessment/Plan JOY, neck pain subacute onset, ? right isded weakness, doing better no evidence of meningitis, myelitis MRI B and C spine (-) LP (-) likely muscular component --can FU this outpt GI FU LFTS, viral, autoimmune or NSAID mediated DR HAIR
[2018-07-02] MEDS: ENOXAPARIN NA (PORCINE) 40 MG/0.4 ML DISP.SYRIN SQ SCH (10:31)
--- NOTE | 2018-07-02 12:23 | CON.GI ---
Consult Consult Specialty:: Gastroenterology Referred by:: Dr. Watson Reason for Consultation:: Abdominal pain, elevated LFTs - History of Present Illness Chief Complaint: Abdominal pain History of Present Illness: 32yo female h/o DM presents with worsening neck pain, rash and right sided paresthesias of unclear exact etiology asked to evaluate for abdominal pain with elevated LFTs. Pt reports developing neck pain with rash on her forehead approximately 2 weeks ago, seen in urgent care and treated with valacyclovir for shingles. She reports worsening neck pain with right sided numbness/weakness, and started on doxycycline and medrol dose pack, however due to persisting symptoms was advised urgent CT imaging and ED evaluation. Pt was seen by neurology evaluation without acute findings on MRI. She had an LP yesterday with results pending. Pt reported abdominal pain during hospitalization over the past 3-4 days, mostly right sided and LUQ with evidence of LFTs therefore GI consulted. Currently pt reports vague ?sharp pain in right side of abdomen, RUQ-RLQ with some radiation to flanks, also with upper/left abdominal pain overall slightly better though still requiring analgesics. Feels neck pain still predominant. Denies n/v or dysphagia. Appetite has been poor however denies association with food or other obvious aggravating factors. Moving bowels, denies blood. Denies fever/chills. Denies prior similar symptoms or h/o liver disease. Took NSAIDs recently prior to admission for the neck pain. - Past Medical History ...LMP: 06/25/18 ...LMP Comment: 2010 - Alcohol/Substance Use Hx Alcohol Use: No - Smoking History Smoking history: Never smoked Have you smoked in the past 12 months: No Aproximately how many cigarettes per day: 6 Home Medications - Allergies Allergies/Adverse Reactions: Allergies Allergy/AdvReac Type Severity Reaction Status Date / Time iodine Allergy Severe VOMITING/SY Verified 06/26/18 14:41 NCOPE - Home Medications Home Medications: Ambulatory Orders Doxycycline Hyclate 100 mg PO DAILY 06/26/18 Gabapentin [Neurontin] 300 mg PO TID 06/26/18 Review of Systems - Review of Systems Constitutional: reports: No Symptoms, Loss of Appetite Cardiovascular: reports: No Symptoms Respiratory: reports: No Symptoms Gastrointestinal: reports: Abdominal Pain (see HPI for details) Physical Exam-GI Vital Signs: Vital Signs Temperature 97.3 F L 07/02/18 10:00 Pulse Rate 79 07/02/18 10:00 Respiratory Rate 18 07/02/18 10:00 Blood Pressure 133/86 07/02/18 10:00 O2 Sat by Pulse Oximetry (%) 100 07/02/18 09:00 Constitutional: Yes: Well Nourished, No Distress, Calm Cardiovascular: Yes: WNL, Regular Rate and Rhythm Respiratory: Yes: WNL, Regular, CTA Bilaterally Gastrointestinal Inspection: Yes: Other (Abd soft, tender in upper abdomen mostly epigastrium and upper quadrants, slightly distended +bs, no rebound, guarding or rigidity) Labs: CBC, BMP 07/02/18 06:30 07/02/18 06:30 INR, PTT INR 0.91 (0.83-1.09) 06/30/18 09:31 Imaging - Results Ultrasound: Report Reviewed Problem List - Problems (1) Abdominal pain Assessment/Plan: 32yo female h/o DM (AIC 11.5) presents with worsening neck pain, rash (treated for shingles) and right sided paresthesias of unclear exact etiology s/p MRI brain without acute findings, now s/p LP (results pending) asked to evaluate for abdominal pain, slight distension, with elevated LFTs without clinical or biochemical features of liver failure. US with hepatic steatosis. No coagulopathy or encephalopathy. Exact etiology unclear and may be different processes, possibly medication induced (?valcyclovir, nsaids, doxycycline), as LFTs were normal on 06/28 now predominantly transaminitis (ALT>AST) vs underlying NAFLD (though less likely etiology for acute elevation). Pt may also have component of ileus vs dysmotility in setting of medications/narcotics, limited mobility during hospitalization and poorly controlled diabetes. -Recommend daily LFTs and closely monitor trend -Await hepatitis serologies -Avoid nonessential hepatotoxic medications (including NSAIDs) -Check TSH -Continue to optimize glycemic control -If above unrevealing, with persisting LFT elevation, please also check ASHLEY, ASMA r/o autoimmune liver disease -Abd xray today due to mild distension -Further recommendations pending above, including possible need for endoscopy, based on LP results and neurology clearance Code(s): R10.9 - UNSPECIFIED ABDOMINAL PAIN
--- NOTE | 2018-07-02 12:50 | PN ---
Progress Note, Physician History of Present Illness: stable no new issues - Current Medication List Current Medications: Active Medications Cyclobenzaprine HCl (Flexeril -) 5 mg PO TID PRN PRN Reason: PAIN LEVEL 6-10 Last Admin: 07/02/18 00:41 Dose: 5 mg Enoxaparin Sodium (Lovenox -) 40 mg SQ DAILY [facility] Last Admin: 07/02/18 10:31 Dose: 40 mg Insulin Aspart (Novolog Vial Sliding Scale -) 1 vial SQ [facility]; Protocol Last Admin: 07/02/18 11:19 Dose: 4 units Insulin Detemir (Levemir Vial) 10 units SQ HS [facility] Last Admin: 07/01/18 22:42 Dose: 10 units Ketorolac Tromethamine (Toradol Injection -) 30 mg IVPUSH BID [facility] Stop: 07/04/18 21:59 Last Admin: 07/02/18 09:50 Dose: 30 mg Oxycodone HCl (Roxicodone -) 5 mg PO Q6H PRN PRN Reason: PAIN LEVEL 6-10 Last Admin: 07/02/18 08:30 Dose: 5 mg Pregabalin (Lyrica -) 300 mg PO BID [facility] Last Admin: 07/02/18 09:50 Dose: 300 mg - Objective Vital Signs: Vital Signs Temperature 97.3 F L 07/02/18 10:00 Pulse Rate 79 07/02/18 10:00 Respiratory Rate 18 07/02/18 10:00 Blood Pressure 133/86 07/02/18 10:00 O2 Sat by Pulse Oximetry (%) 100 07/02/18 09:00 Constitutional: Yes: No Distress, Calm Cardiovascular: Yes: Regular Rate and Rhythm Respiratory: Yes: Regular, CTA Bilaterally Gastrointestinal: Yes: Normal Bowel Sounds, Soft Musculoskeletal: Yes: WNL Extremities: Yes: WNL Neurological: Yes: Alert, Oriented Psychiatric: Yes: Alert, Oriented Labs: CBC, BMP 07/02/18 06:30 07/02/18 06:30 INR, PTT INR 0.91 (0.83-1.09) 06/30/18 09:31 Assessment/Plan Problem List - Problem (1) Headache Code(s): R51 - HEADACHE (2) Right hand weakness Code(s): R29.898 - OTH SYMPTOMS AND SIGNS INVOLVING THE MUSCULOSKELETAL SYSTEM (3) Hyperglycemia Code(s): R73.9 - HYPERGLYCEMIA, UNSPECIFIED 4 shingles plan continue current mgmt await for all the results rest as per the team
[2018-07-02] MEDS ORDERED: IBUPROFEN 400 MG TABLET (FP) PO PRN (13:01)
--- NOTE | 2018-07-02 15:21 | PN ---
Teaching Attending Note Name of Resident: Jackson Nice ATTENDING PHYSICIAN STATEMENT I saw and evaluated the patient. I reviewed the resident's note and discussed the case with the resident. I agree with the resident's findings and plan as documented. SUBJECTIVE: Reports improvement in altered sensation and weakness on R side. Head and neck pain persisting. OBJECTIVE: Afebrile/Hemodynamically Stable. Last Vital Signs Temp Pulse Resp BP Pulse Ox 98.1 F 96 H 20 119/74 100 07/02/18 13:14 07/02/18 13:14 07/02/18 13:14 07/02/18 13:14 07/02/18 09:00 HEENT - Atraumatic, Normocephalic. Heart - S1, S2, RRR Lungs - clear to auscultation Abdomen - Soft, mild distension, tenderness RUQ. Bowel Sounds normal. Extremities - no edema/calf tenderness Neuro - AAO x 3. HANS. EOMI. CN II-XII intact. Mild decrease in Power RUE and RLE. MS - no cervical spine tenderness. Laboratory Results - last 24 hr 07/01/18 07/01/18 07/01/18 11:00 16:25 22:40 WBC RBC Hgb Hct MCV MCH MCHC RDW Plt Count MPV Sodium Potassium Chloride Carbon Dioxide Anion Gap BUN Creatinine Creat Clearance w eGFR POC Glucometer 104 365 Random Glucose Calcium Total Bilirubin AST ALT Alkaline Phosphatase Total Protein Albumin CSF Color Colorless 07/02/18 07/02/18 07/02/18 05:53 06:30 06:30 WBC 7.1 RBC 4.71 Hgb 14.3 Hct 42.4 MCV 90.0 MCH 30.3 MCHC 33.7 RDW 14.6 Plt Count 236 MPV 9.4 Sodium 142 Potassium 4.2 Chloride 106 Carbon Dioxide 30 Anion Gap 6 L BUN 9 Creatinine 0.6 Creat Clearance w eGFR > 60 POC Glucometer 109 Random Glucose 106 Calcium 8.3 L Total Bilirubin 0.3 AST 98 H ALT 206 H Alkaline Phosphatase 107 Total Protein 6.3 L Albumin 3.2 L CSF Color 07/02/18 11:18 WBC RBC Hgb Hct MCV MCH MCHC RDW Plt Count MPV Sodium Potassium Chloride Carbon Dioxide Anion Gap BUN Creatinine Creat Clearance w eGFR POC Glucometer 208 Random Glucose Calcium Total Bilirubin AST ALT Alkaline Phosphatase Total Protein Albumin CSF Color Current Medications Generic Name Dose Route Start Last Admin Trade Name Freq PRN Reason Stop Dose Admin Cyclobenzaprine HCl 5 mg 06/30/18 15:41 07/02/18 00:41 Flexeril - PO 5 mg TID PRN Administration PAIN LEVEL 6-10 Enoxaparin Sodium 40 mg 06/26/18 10:00 07/02/18 10:31 Lovenox - SQ 40 mg DAILY DANISH Administration Ibuprofen 400 mg 07/02/18 13:01 Motrin - PO Q6H PRN FEVER Insulin Aspart 1 vial 06/26/18 07:00 07/02/18 11:19 Novolog Vial Sliding Scale - SQ 4 units ACHS DANISH Administration Protocol Insulin Detemir 10 units 06/30/18 22:00 07/01/18 22:42 Levemir Vial SQ 10 units HS [facility]ISH Administration Oxycodone HCl 5 mg 06/27/18 16:24 07/02/18 14:51 Roxicodone - PO 5 mg Q6H PRN Administration PAIN LEVEL 6-10 Pregabalin 300 mg 07/01/18 10:00 07/02/18 09:50 Lyrica - PO 300 mg BID DANISH Administration ASSESSMENT AND PLAN: 32 year old female, with history of DM2 (previously on Metformin), presents with neck pain, radiating to shoulder with altered sensation and weakness R U and L extremities. She had associated painful rash on R temporal region, which has crusted over after outpatient treatment with Valacyclovir. 1. R sided weakness/altered sensation associated with neck pain and herpetic rash V1 distribution Possible Herpetic Radiculitis. Completed Valacyclovir treatment with improvement in rash. MS excluded on MRI Brain/Neck s/p LP under Fluoroscopy - results neg so far. Continue Flexeril, Lyrica increased to 300mg PO BID, and Oxy prn Neurology and ID following. 2. Acute Transaminitis, etiology unclear, likley medication induced. AST 98 ALT 206 Abdominal US - hepatic steatosis Hepatitis panel pending. GI consulted for further guidance. 3. DM 2 - uncontrolled - not on medication A1C 11.5 Currently on Levemir 10 units qhs and Insulin sliding scale ACHS To start oral regimen on discharge. Will consult Endocrinology. DVT Px - Lovenox.
--- NOTE | 2018-07-02 16:47 | PN ---
Physical Exam: SUBJECTIVE: Patient seen and examined at bedside this morning. She endorses improving headache, and continues to endorse right sided neck pain. She endorses improvement of right upper and lower extremity weakness. Denies subjective fevers, chills. OBJECTIVE: Vital Signs Period Temp Pulse Resp BP Sys/Bee Pulse Ox Last 24 Hr 97.3 F-98.4 F 64-96 18-20 116-133/65-97 100-100 GENERAL: The patient is awake, alert, and fully oriented, in no acute distress. HEAD: Normocephalic, atraumatic. EYES: PERRL. Right eye unable to abduct with lateral gaze. No horizontal or vertical nystagmus noted. Sclera not injected, no ptosis bilaterally. ENT: Oropharynx clear without exudates, moist mucous membranes. NECK: Supple without lymphadenopathy, or thyromegaly. LUNGS: Good inspiratory effort. Breath sounds equal, clear to auscultation bilaterally. No wheezes, no crackles. No accessory muscle use. HEART: Regular rate and rhythm. S1, S2 auscultated without murmur, rub or gallop. ABDOMEN: Soft, nondistended. Tender to palpation at right upper quadrant, and minimally at right lower quadrant. Normoactive bowel sounds X4 quadrants, no guarding, no rebound tenderness. No hepatosplenomegaly palpated or percussed. EXTREMITIES: 2+ radial and dorsalis pedis pulses bilaterally. Warm, well- perfused, no lower extremity edema bilaterally. NEUROLOGICAL: Facial sensation diminished in right sided V1 ,and V3 distribution. Sensation diminished in right upper and lower extremity. Strength 3/5 right upper extremity, 5/5 left upper extremity. Strength 3/5 right lower extremity, 5/5 left lower extremity. Normal speech. Negative Romberg sign. Gait less ataxic- improved from yesterday. PSYCH: Normal mood, normal affect upon my encounter today. SKIN: Warm, dry. Laboratory Results - last 24 hr 07/01/18 07/02/18 07/02/18 22:40 05:53 06:30 WBC 7.1 RBC 4.71 Hgb 14.3 Hct 42.4 MCV 90.0 MCH 30.3 MCHC 33.7 RDW 14.6 Plt Count 236 MPV 9.4 Sodium Potassium Chloride Carbon Dioxide Anion Gap BUN Creatinine Creat Clearance w eGFR POC Glucometer 365 109 Random Glucose Calcium Total Bilirubin AST ALT Alkaline Phosphatase Total Protein Albumin 07/02/18 07/02/18 06:30 11:18 WBC RBC Hgb Hct MCV MCH MCHC RDW Plt Count MPV Sodium 142 Potassium 4.2 Chloride 106 Carbon Dioxide 30 Anion Gap 6 L BUN 9 Creatinine 0.6 Creat Clearance w eGFR > 60 POC Glucometer 208 Random Glucose 106 Calcium 8.3 L Total Bilirubin 0.3 AST 98 H ALT 206 H Alkaline Phosphatase 107 Total Protein 6.3 L Albumin 3.2 L Active Medications Generic Name Dose Route Start Last Admin Trade Name Freq PRN Reason Stop Dose Admin Cyclobenzaprine HCl 5 mg 06/30/18 15:41 07/02/18 00:41 Flexeril - PO 5 mg TID PRN Administration PAIN LEVEL 6-10 Enoxaparin Sodium 40 mg 06/26/18 10:00 07/02/18 10:31 Lovenox - SQ 40 mg DAILY DANISH Administration Ibuprofen 400 mg 07/02/18 13:01 Motrin - PO Q6H PRN FEVER Insulin Aspart 1 vial 06/26/18 07:00 07/02/18 11:19 Novolog Vial Sliding Scale - SQ 4 units ACHS DANISH Administration Protocol Insulin Detemir 10 units 06/30/18 22:00 07/01/18 22:42 Levemir Vial SQ 10 units HS DANISH Administration Oxycodone HCl 5 mg 06/27/18 16:24 07/02/18 14:51 Roxicodone - PO 5 mg Q6H PRN Administration PAIN LEVEL 6-10 Pregabalin 300 mg 07/01/18 10:00 07/02/18 09:50 Lyrica - PO 300 mg BID DANISH Administration IMAGING -CT head shows no focal intracranial lesion. -CT cervical spine shows no fracture, or subluxation -MRI brain no evidence of edema, hemorrhage, subacute infarct, or demyelinating process. -MRI neck shows no evidence of disc herniation. Normal signal intensity of spinal cord without abnormal enhancement. ASSESSMENT/PLAN: Patient is a 32 year old female with history of diabetes mellitus (not on treatment) presents with complaint of right sided neck pain, upper and lower extremity weakness. Right sided hemiplegia -Possibly post herpetic radiculitis. Multiple sclerosis unlikely as no demyelinating lesions noted on MRI. -Patient is s/p fluroscopy guided lumbar puncture -Neurology consult (Dr. Bentley) appreciated. -Lyrica 300mg PO BID -Oxycodone 5mg PO Q6H for breakthrough pain -Flexeril 5mg PO TID PRN -Motrin 400mg PO Q6H PRN Questionable herpes zoster -Patient endorsed painful vesicles within right sided V1 distribution that crusted over several days prior to hospital presentation. -Patient completed Valacyclovir treatment -ID consult (Dr. Darby) appreciated. Transaminitis -AST98 (110 yesterday), ALT 206 (185 yesterday), alkaline phosphatase 107 (78 yesterday), total bilirubin 0.3 -Right upper quadrant ultrasound shows diffuse hepatic steatosis. -Gastroenterology consult (Dr. Sosa) appreciated. Following hepatitis serology, and will consider ASHLEY, ASMA to rule out autoimmune hepatitis. -Follow abdominal xray -Follow CMP -Avoid hepatotoxic medications Diabetes mellitus -HbA1c 11.5 -Patient currently not on medication or treatment. Endorses that she was on Metformin several years ago, however stopped the medication to control her diabetes with diet, exercise. -Insulin sliding scale ACHS -Fingerstick blood glucose monitoring ACHS -Insulin levemir 10 units subq HS -Endocrinology consult (Dr. Bush) FEN -No IV fluids indicated -Follow BMP -Diabetic diet Prophylaxis -Lovenox 40mg subq daily Disposition -Continue care in medical surgical floor Visit type - Emergency Visit Emergency Visit: Yes ED Registration Date: 06/29/18 Care time: The patient presented to the Emergency Department on the above date and was hospitalized for further evaluation of their emergent condition. - New Patient This patient is new to me today: No - Critical Care Critical Care patient: No - Discharge Referral Referred to [facility] Med P.C.: No
[2018-07-02] MEDS: INSULIN (LEVEMIR) 100 UNITS/ML UNITS SQ SCH (21:49)
[2018-07-03 03:15] LABS: HEP.C VIRUS AB 0.1 s/co ratio (0.0-0.9); HEPATITIS B CORE ANTIBODY,IGM Negative (Negative)
[2018-07-03] MEDS: INSULIN SLIDING SCALE (NOVOLOG) 1 VIAL SQ SCH ×4 (06:22→23:34)
[2018-07-03] MEDS: oxyCODONE HCL 5 MG TABLET PO PRN ×3 (07:06→20:23)
[2018-07-03 07:23] LABS: HEMATOCRIT 38.6 % (32.4-45.2); MCHC 33.5 g/dl (32.0-36.0); MEAN CELL VOLUME 89.6 fl (80-96); MEAN PLT VOLUME 9.5 fl (7.5-11.1); PLATELET COUNT 218 K/MM3 (134-434); RBC 4.31 M/mm3 (3.60-5.2); RDW 14.7 % (11.6-15.6); WHITE BLOOD COUNT 7.8 K/mm3 (4.0-10.0)
[2018-07-03 07:56] LABS: ALBUMIN 2.9 g/dl (3.4-5.0); ALK PHOS 93 U/L (45-117); ANION GAP 6 MMOL/L (8-16); BILIRUBIN,TOTAL 0.4 mg/dL (0.2-1); BLOOD UREA NITROGEN 7 mg/dL (7-18); CALCIUM 8.3 mg/dL (8.5-10.1); CHLORIDE 109 mmol/L (98-107); CO2 27 mmol/L (21-32); CREATININE 0.5 mg/dL (0.55-1.3); GLUCOSE,RANDOM 116 mg/dL (74-106); POTASSIUM 4.1 mmol/L (3.5-5.1); SGOT/AST 48 U/L (15-37); SGPT/ALT 158 U/L (13-61); SODIUM 142 mmol/L (136-145); TOT PROT 5.7 g/dl (6.4-8.2)
[2018-07-03] MEDS: ENOXAPARIN NA (PORCINE) 40 MG/0.4 ML DISP.SYRIN SQ SCH (10:30)
[2018-07-03] MEDS: PREGABALIN 100 MG CAPSULE PO SCH ×2 (10:32→23:35)
[2018-07-03] MEDS: POLYETHYLENE GLYCOL 3350 119 GM BTL PO SCH (10:33)
--- NOTE | 2018-07-03 11:04 | PN ---
Teaching Attending Note Name of Resident: Jackson Nice ATTENDING PHYSICIAN STATEMENT I saw and evaluated the patient. I reviewed the resident's note and discussed the case with the resident. I agree with the resident's findings and plan as documented. SUBJECTIVE: Altered sensation and weakness R U and L extremities resolved. Complains of ongoing headache and neck pain. OBJECTIVE: Afebrile/Hemodynamically Stable. Last Vital Signs Temp Pulse Resp BP Pulse Ox 98.2 F 80 20 102/68 100 07/03/18 08:19 07/03/18 08:19 07/03/18 08:19 07/03/18 08:19 07/02/18 21:00 HEENT - Atraumatic, Normocephalic. Heart - S1, S2, RRR Lungs - clear to auscultation Abdomen - Soft, mild distension, tenderness RUQ. Bowel Sounds normal. Extremities - no edema/calf tenderness Neuro - AAO x 3. HANS. EOMI. CN II-XII intact. Improved Power RUE and RLE. Laboratory Results - last 24 hr 07/02/18 07/02/18 07/02/18 06:30 06:30 11:18 WBC RBC Hgb Hct MCV MCH MCHC RDW Plt Count MPV Sodium Potassium Chloride Carbon Dioxide Anion Gap BUN Creatinine Creat Clearance w eGFR POC Glucometer 208 Random Glucose Calcium Total Bilirubin AST ALT Alkaline Phosphatase Total Protein Albumin TSH Hepatitis A IgM Ab Negative Hep Bs Antigen Negative Hep B Core IgM Ab Negative Negative Hepatitis C Antibody 0.1 07/02/18 07/02/18 07/03/18 16:39 21:45 06:21 WBC RBC Hgb Hct MCV MCH MCHC RDW Plt Count MPV Sodium Potassium Chloride Carbon Dioxide Anion Gap BUN Creatinine Creat Clearance w eGFR POC Glucometer 221 200 113 Random Glucose Calcium Total Bilirubin AST ALT Alkaline Phosphatase Total Protein Albumin TSH Hepatitis A IgM Ab Hep Bs Antigen Hep B Core IgM Ab Hepatitis C Antibody 07/03/18 07/03/18 06:30 06:30 WBC 7.8 RBC 4.31 Hgb 13.0 Hct 38.6 MCV 89.6 MCH 30.0 MCHC 33.5 RDW 14.7 Plt Count 218 MPV 9.5 Sodium 142 Potassium 4.1 Chloride 109 H Carbon Dioxide 27 Anion Gap 6 L BUN 7 Creatinine 0.5 L Creat Clearance w eGFR > 60 POC Glucometer Random Glucose 116 H Calcium 8.3 L Total Bilirubin 0.4 AST 48 H ALT 158 H Alkaline Phosphatase 93 Total Protein 5.7 L Albumin 2.9 L TSH 1.37 Hepatitis A IgM Ab Hep Bs Antigen Hep B Core IgM Ab Hepatitis C Antibody Current Medications Generic Name Dose Route Start Last Admin Trade Name Freq PRN Reason Stop Dose Admin Cyclobenzaprine HCl 5 mg 06/30/18 15:41 07/02/18 21:47 Flexeril - PO 5 mg TID PRN Administration PAIN LEVEL 6-10 Enoxaparin Sodium 40 mg 06/26/18 10:00 07/03/18 10:30 Lovenox - SQ 40 mg DAILY DANISH Administration Ibuprofen 400 mg 07/02/18 13:01 07/02/18 16:47 Motrin - PO 400 mg Q6H PRN Administration FEVER Insulin Aspart 1 vial 06/26/18 07:00 07/03/18 06:22 Novolog Vial Sliding Scale - SQ Not Given ACHS [facility] Protocol Insulin Detemir 10 units 06/30/18 22:00 07/02/18 21:49 Levemir Vial SQ 10 units HS DANISH Administration Oxycodone HCl 5 mg 06/27/18 16:24 07/03/18 07:06 Roxicodone - PO 5 mg Q6H PRN Administration PAIN LEVEL 6-10 Polyethylene Glycol 17 gm 07/03/18 10:00 07/03/18 10:33 Miralax (For Daily Use) - PO Not Given DAILY DANISH Pregabalin 300 mg 07/01/18 10:00 07/03/18 10:32 Lyrica - PO 300 mg BID DANISH Administration ASSESSMENT AND PLAN: 32 year old female, with history of DM2 (previously on Metformin), presents with neck pain, radiating to shoulder with altered sensation and weakness R U and L extremities. She had associated painful rash on R temporal region, which crusted over and started to resolve after outpatient treatment with Valacyclovir. 1. R sided weakness/altered sensation associated with neck pain and herpetic rash V1 distribution Possible Herpetic Radiculitis. Completed Valacyclovir treatment with improvement in rash. MS excluded on MRI Brain/Neck s/p LP under Fluoroscopy - results including Cx neg. Continue Flexeril, Lyrica, and Oxy prn Neurology and ID following. 2. Acute Transaminitis, etiology unclear, likely medication induced, improving. AST 110 --- > 48 ALT 206 ---> 158 Abdominal US - hepatic steatosis Hepatitis panel negative GI following. 3. Constipation and possible foreign bodies in Colon on AXR Patient denies ingestion of foreign bodies and denies abdominal pain/N/V/melena/ hematochezia. Will give Miralax and discuss with GI re: further investigation/management. Will likely require repeat imaging. 3. DM 2 - uncontrolled - not on medication A1C 11.5 Currently on Levemir 10 units qhs and Insulin sliding scale ACHS Will likely need to start oral regimen on discharge - Endocrinology consulted. 4. IUD on AXR - patient admits to having IUD in past but thought that it was removed at least 6 years ago. No pelvic pain/discomfort/abnormal bleeding. For out-patient gynecology evaluation. DVT Px - Lovenox.
[2018-07-03] MEDS ORDERED: PROCHLORPERAZINE MALEATE 5 MG TABLET PO ONE (11:49)
--- NOTE | 2018-07-03 12:03 | PN ---
Progress Note, Physician History of Present Illness: now having headache also had a bout of vomiting patient did not eat last night according to her - Current Medication List Current Medications: Active Medications Cyclobenzaprine HCl (Flexeril -) 5 mg PO TID PRN PRN Reason: PAIN LEVEL 6-10 Last Admin: 07/02/18 21:47 Dose: 5 mg Enoxaparin Sodium (Lovenox -) 40 mg SQ DAILY [facility] Last Admin: 07/03/18 10:30 Dose: 40 mg Ibuprofen (Motrin -) 400 mg PO Q6H PRN PRN Reason: FEVER Last Admin: 07/02/18 16:47 Dose: 400 mg Insulin Aspart (Novolog Vial Sliding Scale -) 1 vial SQ [facility]; Protocol Last Admin: 07/03/18 11:06 Dose: Not Given Insulin Detemir (Levemir Vial) 10 units SQ [facility] Last Admin: 07/02/18 21:49 Dose: 10 units Oxycodone HCl (Roxicodone -) 5 mg PO Q6H PRN PRN Reason: PAIN LEVEL 6-10 Last Admin: 07/03/18 07:06 Dose: 5 mg Polyethylene Glycol (Miralax (For Daily Use) -) 17 gm PO DAILY [facility] Last Admin: 07/03/18 10:33 Dose: Not Given Pregabalin (Lyrica -) 300 mg PO BID [facility] Last Admin: 07/03/18 10:32 Dose: 300 mg Prochlorperazine Maleate (Compazine -) 5 mg PO ONCE ONE Stop: 07/03/18 11:50 - Objective Vital Signs: Vital Signs Temperature 98.2 F 07/03/18 08:19 Pulse Rate 80 07/03/18 08:19 Respiratory Rate 20 07/03/18 09:00 Blood Pressure 102/68 07/03/18 08:19 O2 Sat by Pulse Oximetry (%) 99 07/03/18 09:00 Constitutional: Yes: Calm, Mild Distress Cardiovascular: Yes: Regular Rate and Rhythm Respiratory: Yes: Regular, CTA Bilaterally Gastrointestinal: Yes: Normal Bowel Sounds, Soft Musculoskeletal: Yes: WNL Extremities: Yes: WNL Neurological: Yes: Alert, Oriented Psychiatric: Yes: Alert, Oriented Labs: CBC, BMP 07/03/18 06:30 07/03/18 06:30 INR, PTT INR 0.91 (0.83-1.09) 06/30/18 09:31 Assessment/Plan Problem List - Problem (1) Headache Code(s): R51 - HEADACHE (2) Right hand weakness Code(s): R29.898 - OTH SYMPTOMS AND SIGNS INVOLVING THE MUSCULOSKELETAL SYSTEM (3) Hyperglycemia Code(s): R73.9 - HYPERGLYCEMIA, UNSPECIFIED 4 shingles plan continue current mgmt monitor headache ret as per the team
[2018-07-03] MEDS ORDERED: SODIUM CHLORIDE 1,000 ML IV STA (12:18)
--- NOTE | 2018-07-03 13:22 | PN ---
Physical Exam: SUBJECTIVE: Patient seen and examined at bedside this morning. She endorses headache that is 8/10 intensity within bilateral frontal lobes. She continues to endorse bilateral neck pain, worse on the right side. Notes improvement of her right-sided upper and lower extremity weakness. She complains of diminished appetite, nausea, and one episode of bilious, non bloody vomiting. She had two soft, loosely formed bowel movements this morning. Denies subjective fevers, chills. OBJECTIVE: Vital Signs Period Temp Pulse Resp BP Sys/Bee Pulse Ox Last 24 Hr 98.1 F-98.7 F 73-96 20-20 102-128/57-88 99-100 GENERAL: The patient is awake, alert, and fully oriented, in mild distress. HEAD: Normocephalic, atraumatic. EYES: PERRL. No horizontal or vertical nystagmus noted. Sclera not injected, no ptosis bilaterally. ENT: Oropharynx clear without exudates, moist mucous membranes. NECK: Supple without lymphadenopathy, or thyromegaly. LUNGS: Good inspiratory effort. Breath sounds equal, clear to auscultation bilaterally. No wheezes, no crackles. No accessory muscle use. HEART: Regular rate and rhythm. S1, S2 auscultated without murmur, rub or gallop. ABDOMEN: Soft, mildly distended. Diffusely tender to palpation, worst at right upper quadrant, and right lower quadrant. Normoactive bowel sounds X4 quadrants , no guarding, no rebound tenderness. No hepatosplenomegaly palpated or percussed. EXTREMITIES: 2+ radial and dorsalis pedis pulses bilaterally. Warm, well- perfused, no lower extremity edema bilaterally. NEUROLOGICAL: Facial sensation diminished in right sided V1 ,and V3 distribution. Sensation diminished in right upper and lower extremity. Strength 4/5 right upper extremity, 5/5 left upper extremity. Strength 4/5 right lower extremity, 5/5 left lower extremity. Normal speech. Negative Romberg sign. Gait less ataxic- improved from yesterday. PSYCH: Normal mood, normal affect upon my encounter today. SKIN: Warm, dry. Laboratory Results - last 24 hr 07/02/18 07/02/18 07/02/18 06:30 06:30 16:39 WBC RBC Hgb Hct MCV MCH MCHC RDW Plt Count MPV Sodium Potassium Chloride Carbon Dioxide Anion Gap BUN Creatinine Creat Clearance w eGFR POC Glucometer 221 Random Glucose Calcium Total Bilirubin AST ALT Alkaline Phosphatase Total Protein Albumin TSH Hepatitis A IgM Ab Negative Hep Bs Antigen Negative Hep B Core IgM Ab Negative Negative Hepatitis C Antibody 0.1 07/02/18 07/03/18 07/03/18 21:45 06:21 06:30 WBC RBC Hgb Hct MCV MCH MCHC RDW Plt Count MPV Sodium 142 Potassium 4.1 Chloride 109 H Carbon Dioxide 27 Anion Gap 6 L BUN 7 Creatinine 0.5 L Creat Clearance w eGFR > 60 POC Glucometer 200 113 Random Glucose 116 H Calcium 8.3 L Total Bilirubin 0.4 AST 48 H ALT 158 H Alkaline Phosphatase 93 Total Protein 5.7 L Albumin 2.9 L TSH 1.37 Hepatitis A IgM Ab Hep Bs Antigen Hep B Core IgM Ab Hepatitis C Antibody 07/03/18 07/03/18 06:30 11:05 WBC 7.8 RBC 4.31 Hgb 13.0 Hct 38.6 MCV 89.6 MCH 30.0 MCHC 33.5 RDW 14.7 Plt Count 218 MPV 9.5 Sodium Potassium Chloride Carbon Dioxide Anion Gap BUN Creatinine Creat Clearance w eGFR POC Glucometer 134 Random Glucose Calcium Total Bilirubin AST ALT Alkaline Phosphatase Total Protein Albumin TSH Hepatitis A IgM Ab Hep Bs Antigen Hep B Core IgM Ab Hepatitis C Antibody Active Medications Generic Name Dose Route Start Last Admin Trade Name Freq PRN Reason Stop Dose Admin Cyclobenzaprine HCl 5 mg 06/30/18 15:41 07/02/18 21:47 Flexeril - PO 5 mg TID PRN Administration PAIN LEVEL 6-10 Enoxaparin Sodium 40 mg 06/26/18 10:00 07/03/18 10:30 Lovenox - SQ 40 mg DAILY DANISH Administration Sodium Chloride 1,000 mls @ 1,000 mls/hr 07/03/18 12:18 07/03/18 12:28 Normal Saline - IV 07/03/18 13:17 1,000 mls/hr ASDIR STA Administration Ibuprofen 400 mg 07/02/18 13:01 07/02/18 16:47 Motrin - PO 400 mg Q6H PRN Administration FEVER Insulin Aspart 1 vial 06/26/18 07:00 07/03/18 11:06 Novolog Vial Sliding Scale - SQ Not Given ACHS [facility] Protocol Insulin Detemir 10 units 06/30/18 22:00 07/02/18 21:49 Levemir Vial SQ 10 units HS DANISH Administration Oxycodone HCl 5 mg 06/27/18 16:24 07/03/18 07:06 Roxicodone - PO 5 mg Q6H PRN Administration PAIN LEVEL 6-10 Polyethylene Glycol 17 gm 07/03/18 10:00 07/03/18 10:33 Miralax (For Daily Use) - PO Not Given DAILY DANISH Pregabalin 300 mg 07/01/18 10:00 07/03/18 10:32 Lyrica - PO 300 mg BID DANISH Administration IMAGING -CT head shows no focal intracranial lesion. -CT cervical spine shows no fracture, or subluxation -MRI brain no evidence of edema, hemorrhage, subacute infarct, or demyelinating process. -MRI neck shows no evidence of disc herniation. Normal signal intensity of spinal cord without abnormal enhancement. ASSESSMENT/PLAN: Patient is a 32 year old female with history of diabetes mellitus (not on treatment) presents with complaint of right sided neck pain, upper and lower extremity weakness. Right sided hemiplegia -Possibly post herpetic radiculitis. Multiple sclerosis unlikely as no demyelinating lesions noted on MRI. -Patient is s/p fluroscopy guided lumbar puncture -Neurology consult (Dr. Bentley) appreciated. -Lyrica 300mg PO BID -Flexeril 5mg PO TID PRN -Motrin 400mg PO Q6H PRN -Oxycodone 5mg PO Q6H for breakthrough pain Right upper quadrant abdominal pain, transaminitis -AST 48 (yesterday), ALT 158 (206 yesterday), alkaline phosphatase 39 (107 yesterday), total bilirubin 0.4 -Right upper quadrant ultrasound shows diffuse hepatic steatosis. -Abdominal xray shows stool within right colon, questionable foreign body within transverse colon, left proximal descending colon. -Hepatitis A,B,C serologies negative. -Gastroenterology consult appreciated. Will consider ASHLEY, ASMA to rule out autoimmune hepatitis. -Follow CMP -Avoid hepatotoxic medications Diabetes mellitus -HbA1c 11.5 -Insulin sliding scale ACHS -Fingerstick blood glucose monitoring ACHS -Insulin levemir 10 units subq HS -Endocrinology consult (Dr. Bush) Questionable herpes zoster -Patient endorsed painful vesicles within right sided V1 distribution that crusted over several days prior to hospital presentation. -Patient completed Valacyclovir treatment -ID consult (Dr. Darby) appreciated. FEN -1 liter IV normal saline bolus today. -Follow CMP -Diabetic diet Prophylaxis -Lovenox 40mg subq daily Disposition -Continue care in medical surgical floor Visit type - Emergency Visit Emergency Visit: Yes ED Registration Date: 06/29/18 Care time: The patient presented to the Emergency Department on the above date and was hospitalized for further evaluation of their emergent condition. - New Patient This patient is new to me today: No - Critical Care Critical Care patient: No - Discharge Referral Referred to [facility] Med P.C.: No
--- NOTE | 2018-07-03 19:14 | PN ---
GI Progress Note Subjective: Vomited today States having a headache and was dizzy AXR = retained stool and "foreign bodies in the transverse and descending colon ". - Objective Vital Signs: Vital Signs Temperature 98.1 F 07/03/18 17:36 Pulse Rate 83 07/03/18 17:36 Respiratory Rate 20 07/03/18 17:36 Blood Pressure 114/63 07/03/18 17:36 O2 Sat by Pulse Oximetry (%) 99 07/03/18 09:00 Labs: CBC, BMP 07/03/18 06:30 07/03/18 06:30 INR 0.91 (0.83-1.09) 06/30/18 09:31 07/02/18 07/02/18 06:30 06:30 Hepatitis A IgM Ab Negative Hep Bs Antigen Negative Hep B Core IgM Ab Negative Negative Hepatitis C Antibody 0.1 Problem List - Problems (1) Transaminitis Assessment/Plan: Occurred while admitted. Seem to be improving without intervention. ? Medication induced (Valcyclovir / Lovenox). Acute hepatitis serologies negative Continue to monitor LFTs Avoid hepatotoxic agents Code(s): R74.0 - NONSPEC ELEV OF LEVELS OF TRANSAMNS & LACTIC ACID DEHYDRGNSE (2) Foreign body in colon Assessment/Plan: Unclear etiology. Ordered non contrast CT scan for further evaluation. On MiraLAX for fecal retantion Code(s): T18.4XXA - FOREIGN BODY IN COLON, INITIAL ENCOUNTER
[2018-07-03] MEDS: CYCLOBENZAPRINE HCL 10 MG TABLET (FP) PO PRN (20:22)
[2018-07-03] MEDS ORDERED: ONDANSETRON 4 MG/2 ML VIAL IVPUSH PRN (23:26)
[2018-07-03] MEDS: INSULIN (LEVEMIR) 100 UNITS/ML UNITS SQ SCH (23:34)
--- NOTE | 2018-07-03 23:41 | CONSULT ---
Consult Consult Specialty:: endocrine Referred by:: daly barraza md Reason for Consultation:: diabetes mellitus - History of Present Illness Chief Complaint: high sugars History of Present Illness: 32 y/o female with PMH of DM who presented to the ED with right sided eye pain, neck pain, right sided weakness. Of note- 2 weeks ago patient was having intractable neck pain, the noticed that she had a rash on the right side of her forehead and noticed 2 bumps behind her right ear, so she went to the doctor who diagnosed her with shingles and she was prescribed valacyclovir and doxycycline. The rash went away, however, her pain didn't go away- so she was prescribed a medrol dose pack with no relief of pain. she has recent dx of diabetes mellitus she states is under diet control she denies polyuria and polydipsia. - Past Medical History ...LMP: 06/25/18 ...LMP Comment: 2010 - Alcohol/Substance Use Hx Alcohol Use: No - Smoking History Smoking history: Never smoked Have you smoked in the past 12 months: No Aproximately how many cigarettes per day: 6 Home Medications - Allergies Allergies/Adverse Reactions: Allergies Allergy/AdvReac Type Severity Reaction Status Date / Time iodine Allergy Severe VOMITING/SY Verified 06/26/18 14:41 NCOPE - Home Medications Home Medications: Ambulatory Orders Doxycycline Hyclate 100 mg PO DAILY 06/26/18 Gabapentin [Neurontin] 300 mg PO TID 06/26/18 Alcohol Antiseptic Pads [Alcohol Prep Pads] 1 each TP ASDIR #1 box 07/03/18 Lancets 1 each ASDIR #1 box 07/03/18 Miscellaneous Medical Supply [Glucometer Device] 1 each .ROUTE ASDIR #1 kit Miscellaneous Medical Supply [Glucometer Test Strips #100] 1 each .ROUTE ASDIR # 1 box 07/03/18 Review of Systems - Review of Systems Constitutional: reports: Weakness Eyes: reports: Eye Pain, Recent Change in Vision HENT: reports: No Symptoms Neck: reports: Pain on Movement Cardiovascular: reports: No Symptoms Respiratory: reports: No Symptoms Gastrointestinal: reports: No Symptoms Genitourinary: reports: No Symptoms Breasts: reports: No Symptoms Reported Musculoskeletal: reports: Joint Swelling, Muscle Weakness Neurological: reports: No Symptoms Endocrine: reports: No Symptoms Physical Exam Vital Signs: Vital Signs Temperature 98.1 F 07/03/18 17:36 Pulse Rate 83 07/03/18 17:36 Respiratory Rate 20 07/03/18 17:36 Blood Pressure 114/63 07/03/18 17:36 O2 Sat by Pulse Oximetry (%) 99 07/03/18 09:00 Eyes: Yes: EOM Intact HENT: Yes: Normocephalic Neck: Yes: Trachea Midline Cardiovascular: Yes: Regular Rate and Rhythm Respiratory: Yes: CTA Bilaterally Gastrointestinal: Yes: Normal Bowel Sounds ...Rectal Exam: Yes: Deferred Extremities: Yes: WNL Edema: No Neurological: Yes: Alert, Oriented Labs: CBC, BMP 07/03/18 06:30 07/03/18 06:30 Problem List - Problems (1) Headache Code(s): R51 - HEADACHE Qualifiers: Headache type: unspecified Headache chronicity pattern: unspecified pattern Intractability: not intractable Qualified Code(s): R51 - Headache (2) Neck pain Code(s): M54.2 - CERVICALGIA (3) Post herpetic neuralgia Code(s): B02.29 - OTHER POSTHERPETIC NERVOUS SYSTEM INVOLVEMENT (4) Right hand weakness Code(s): R29.898 - OTH SYMPTOMS AND SIGNS INVOLVING THE MUSCULOSKELETAL SYSTEM (5) Right hemiparesis Code(s): G81.91 - HEMIPLEGIA, UNSPECIFIED AFFECTING RIGHT DOMINANT SIDE (6) T2DM (type 2 diabetes mellitus) Code(s): E11.9 - TYPE 2 DIABETES MELLITUS WITHOUT COMPLICATIONS Assessment/Plan Current Active Problems Abdominal pain (Acute) Foreign body in colon (Acute) Headache (Acute) Neck pain (Acute) Post herpetic neuralgia (Acute) Right hand weakness (Acute) Right hemiparesis (Acute) T2DM (type 2 diabetes mellitus) (Acute) Transaminitis (Acute) Abnormal Lab Results 07/03/18 06:30 Chloride 109 H Anion Gap 6 L Creatinine 0.5 L Random Glucose 116 H Calcium 8.3 L AST 48 H ALT 158 H Total Protein 5.7 L Albumin 2.9 L Laboratory Results - last 24 hr 07/01/18 07/02/18 07/02/18 11:00 06:30 06:30 WBC RBC Hgb Hct MCV MCH MCHC RDW Plt Count MPV Sodium Potassium Chloride Carbon Dioxide Anion Gap BUN Creatinine Creat Clearance w eGFR POC Glucometer Random Glucose Calcium Total Bilirubin AST ALT Alkaline Phosphatase Total Protein Albumin TSH Hepatitis A IgM Ab Negative Hep Bs Antigen Negative Hep B Core IgM Ab Negative Negative Hepatitis C Antibody 0.1 HSV I DNA Quant (PCR) Negative HSV II DNA Quant (PCR) Negative 07/03/18 07/03/18 07/03/18 06:21 06:30 06:30 WBC 7.8 RBC 4.31 Hgb 13.0 Hct 38.6 MCV 89.6 MCH 30.0 MCHC 33.5 RDW 14.7 Plt Count 218 MPV 9.5 Sodium 142 Potassium 4.1 Chloride 109 H Carbon Dioxide 27 Anion Gap 6 L BUN 7 Creatinine 0.5 L Creat Clearance w eGFR > 60 POC Glucometer 113 Random Glucose 116 H Calcium 8.3 L Total Bilirubin 0.4 AST 48 H ALT 158 H Alkaline Phosphatase 93 Total Protein 5.7 L Albumin 2.9 L TSH 1.37 Hepatitis A IgM Ab Hep Bs Antigen Hep B Core IgM Ab Hepatitis C Antibody HSV I DNA Quant (PCR) HSV II DNA Quant (PCR) 07/03/18 07/03/18 11:05 16:23 WBC RBC Hgb Hct MCV MCH MCHC RDW Plt Count MPV Sodium Potassium Chloride Carbon Dioxide Anion Gap BUN Creatinine Creat Clearance w eGFR POC Glucometer 134 205 Random Glucose Calcium Total Bilirubin AST ALT Alkaline Phosphatase Total Protein Albumin TSH Hepatitis A IgM Ab Hep Bs Antigen Hep B Core IgM Ab Hepatitis C Antibody HSV I DNA Quant (PCR) HSV II DNA Quant (PCR) Laboratory Tests 06/26/18 07/03/18 07/03/18 05:30 06:21 06:30 Sodium 142 Potassium 4.1 Chloride 109 H Carbon Dioxide 27 Anion Gap 6 L BUN 7 Creatinine 0.5 L POC Glucometer 113 Random Glucose 116 H Hemoglobin A1c % 11.5 H Calcium 8.3 L TSH 1.37 07/03/18 07/03/18 11:05 16:23 Sodium Potassium Chloride Carbon Dioxide Anion Gap BUN Creatinine POC Glucometer 134 205 Random Glucose Hemoglobin A1c % Calcium TSH plan: bgm qid novolog scale as diet improves will need levemir dose 10 units bid titrate as needed diet and nutrition consult
[2018-07-04] MEDS ORDERED: INSULIN (LEVEMIR) 100 UNITS/ML UNITS SQ SCH ×2 (07:00→10:00)
[2018-07-04] MEDS: INSULIN SLIDING SCALE (NOVOLOG) 1 VIAL SQ SCH ×2 (07:14→11:10)
[2018-07-04] MEDS: CYCLOBENZAPRINE HCL 10 MG TABLET (FP) PO PRN ×2 (07:14→14:48)
[2018-07-04] MEDS: oxyCODONE HCL 5 MG TABLET PO PRN ×2 (07:14→14:48)
[2018-07-04 07:35] LABS: ALBUMIN 2.8 g/dl (3.4-5.0); ALK PHOS 78 U/L (45-117); ANION GAP 7 MMOL/L (8-16); BILIRUBIN,DIRECT 0.1 mg/dL (0.0-0.2); BILIRUBIN,TOTAL 0.5 mg/dL (0.2-1); BLOOD UREA NITROGEN 5 mg/dL (7-18); CALCIUM 8.4 mg/dL (8.5-10.1); CHLORIDE 109 mmol/L (98-107); CO2 27 mmol/L (21-32); CREATININE 0.4 mg/dL (0.55-1.3); GLUCOSE,RANDOM 90 mg/dL (74-106); POTASSIUM 3.8 mmol/L (3.5-5.1); SGOT/AST 25 U/L (15-37); SGPT/ALT 106 U/L (13-61); SODIUM 142 mmol/L (136-145); TOT PROT 5.4 g/dl (6.4-8.2)
[2018-07-04] MEDS: ENOXAPARIN NA (PORCINE) 40 MG/0.4 ML DISP.SYRIN SQ SCH (09:02)
[2018-07-04] MEDS: PREGABALIN 100 MG CAPSULE PO SCH (09:02)
[2018-07-04] MEDS: POLYETHYLENE GLYCOL 3350 119 GM BTL PO SCH (09:03)
--- NOTE | 2018-07-04 10:27 | PN ---
GI Progress Note Subjective: No acute events No abdominal pain CT scan not officially read but I did not see any foreign bodies in the colon. an IUD is noted and the patient was unaware that she still had one in place. - Objective Vital Signs: Vital Signs Temperature 98.1 F 07/04/18 09:00 Pulse Rate 81 07/04/18 09:00 Respiratory Rate 20 07/04/18 09:00 Blood Pressure 111/67 07/04/18 09:00 O2 Sat by Pulse Oximetry (%) 99 07/04/18 09:00 Constitutional: Calm Cardiovascular: Yes: Regular Rate and Rhythm Respiratory: Yes: CTA Bilaterally Gastrointestinal Inspection: No: Distention ...Auscultate: Yes: Normoactive Bowel Sounds ...Palpate: No: Tenderness Edema: No (No LE edema) Neurological: Yes: Alert Labs: CBC, BMP 07/03/18 06:30 07/04/18 06:00 INR, PTT INR 0.91 (0.83-1.09) 06/30/18 09:31 Hepatic Panel Total Bilirubin 0.5 mg/dL (0.2-1) 07/04/18 06:00 Direct Bilirubin 0.1 mg/dL (0.0-0.2) 07/04/18 06:00 AST 25 U/L (15-37) 07/04/18 06:00 ALT 106 U/L (13-61) H 07/04/18 06:00 Alkaline Phosphatase 78 U/L (45-117) 07/04/18 06:00 Albumin 2.8 g/dl (3.4-5.0) L 07/04/18 06:00 Problem List - Problems (1) Transaminitis Assessment/Plan: Resolving Avoid hepatotoxic agents Advised patient to avoid acetaminophen/tylenol Follow-up official CT scan of abdomen Asked that she discuss with primary team re: IUD Outpatient follow-up of LFTs and continued serologic w/u if needed Code(s): R74.0 - NONSPEC ELEV OF LEVELS OF TRANSAMNS & LACTIC ACID DEHYDRGNSE (2) Foreign body in colon Code(s): T18.4XXA - FOREIGN BODY IN COLON, INITIAL ENCOUNTER
--- NOTE | 2018-07-04 11:56 | EKG ---
Test Reason : Blood Pressure : / mmHG Vent. Rate : 071 BPM Atrial Rate : 071 BPM P-R Int : 148 ms QRS Dur : 090 ms QT Int : 378 ms P-R-T Axes : 047 056 031 degrees QTc Int : 410 ms NORMAL SINUS RHYTHM WITH SINUS ARRHYTHMIA NORMAL ECG WHEN COMPARED WITH ECG OF 13-JUL-2014 17:58, NO SIGNIFICANT CHANGE WAS FOUND Confirmed by GELACIO VÁSQUEZ, NACHO ([id number]) on 07/04/2018 11:56:22 AM Referred By: Confirmed By:NACHO BRIZUELA MD
--- NOTE | 2018-07-04 12:19 | PN ---
Progress Note, Physician History of Present Illness: stable no vomiting tolerating liquids - Current Medication List Current Medications: Active Medications Cyclobenzaprine HCl (Flexeril -) 5 mg PO TID PRN PRN Reason: PAIN LEVEL 6-10 Last Admin: 07/04/18 07:14 Dose: 5 mg Enoxaparin Sodium (Lovenox -) 40 mg SQ DAILY [facility] Last Admin: 07/04/18 09:02 Dose: Not Given Ibuprofen (Motrin -) 400 mg PO Q6H PRN PRN Reason: FEVER Last Admin: 07/02/18 16:47 Dose: 400 mg Insulin Aspart (Novolog Vial Sliding Scale -) 1 vial SQ [facility]; Protocol Last Admin: 07/04/18 11:10 Dose: 4 units Insulin [facility]em[facility] ([facility]) [facility] Last Admin: 07/04/18 07:14 Dose: 10 units Ondansetron HCl (Zofran Injection) 4 mg IVPUSH ONCE PRN PRN Reason: NAUSEA AND/OR VOMITING Last Admin: 07/04/18 07:54 Dose: 4 mg Oxycodone HCl (Roxicodone -) 5 mg PO Q6H PRN PRN Reason: PAIN LEVEL 6-10 Last Admin: 07/04/18 07:14 Dose: 5 mg Polyethylene Glycol (Miralax (For Daily Use) -) 17 gm PO DAILY [facility] Last Admin: 07/04/18 09:03 Dose: Not Given Pregabalin (Lyrica -) 300 mg PO BID [facility] Last Admin: 07/04/18 09:02 Dose: 300 mg - Objective Vital Signs: Vital Signs Temperature 98.1 F 07/04/18 09:00 Pulse Rate 81 07/04/18 09:00 Respiratory Rate 20 07/04/18 09:00 Blood Pressure 111/67 07/04/18 09:00 O2 Sat by Pulse Oximetry (%) 99 07/04/18 09:00 Constitutional: Yes: No Distress, Calm Cardiovascular: Yes: Regular Rate and Rhythm Respiratory: Yes: Regular, CTA Bilaterally Gastrointestinal: Yes: Normal Bowel Sounds, Soft Musculoskeletal: Yes: WNL Extremities: Yes: WNL Neurological: Yes: Alert, Oriented Psychiatric: Yes: Alert, Oriented Labs: CBC, BMP 07/03/18 06:30 07/04/18 06:00 INR, PTT INR 0.91 (0.83-1.09) 06/30/18 09:31 Assessment/Plan Problem List - Problem (1) Headache Code(s): R51 - HEADACHE (2) Right hand weakness Code(s): R29.898 - OTH SYMPTOMS AND SIGNS INVOLVING THE MUSCULOSKELETAL SYSTEM (3) Hyperglycemia Code(s): R73.9 - HYPERGLYCEMIA, UNSPECIFIED 4 shingles plan continue current mgmt patient stable ret as per the team vomiting better
--- NOTE | 2018-07-04 14:21 | DS ---
Physical Exam: SUBJECTIVE: Patient seen and examined at bedside this morning. She endorses significant improvement of her headache, and nausea. She is tolerating diet without abdominal pain, nausea, vomiting. She denies subjective fevers, or chills. Patient does not endorse new acute complaints today. OBJECTIVE: Vital Signs Period Temp Pulse Resp BP Sys/Bee Pulse Ox Last 24 Hr 98.1 F-98.4 F 78-83 20-20 99-115/59-67 98-99 PHYSICAL EXAM GENERAL: The patient is awake, alert, and fully oriented, in no acute distress. HEAD: Normocephalic, atraumatic. EYES: PERRL. No horizontal or vertical nystagmus noted. Sclera not injected, no ptosis bilaterally. ENT: Oropharynx clear without exudates, moist mucous membranes. NECK: Supple without lymphadenopathy, or thyromegaly. LUNGS: Good inspiratory effort. Breath sounds equal, clear to auscultation bilaterally. No wheezes, no crackles. No accessory muscle use. HEART: Regular rate and rhythm. S1, S2 auscultated without murmur, rub or gallop. ABDOMEN: Soft, mildly distended. Nontender to palpation. Normoactive bowel sounds X4 quadrants, no guarding, no rebound tenderness. No hepatosplenomegaly palpated or percussed. EXTREMITIES: 2+ radial and dorsalis pedis pulses bilaterally. Warm, well- perfused, no lower extremity edema bilaterally. NEUROLOGICAL: Facial sensation slightly diminished in right sided V1 ,and V3 distribution. Sensation diminished in right upper and lower extremity. Strength 4/5 right upper extremity, 5/5 left upper extremity. Strength 4/5 right lower extremity, 5/5 left lower extremity. Normal speech, significantly improved gait. PSYCH: Normal mood, normal affect upon my encounter today. SKIN: Warm, dry. LABS Laboratory Results - last 24 hr 07/01/18 07/03/18 07/03/18 11:00 16:23 23:32 Sodium Potassium Chloride Carbon Dioxide Anion Gap BUN Creatinine Creat Clearance w eGFR POC Glucometer 205 208 Random Glucose Calcium Total Bilirubin Direct Bilirubin AST ALT Alkaline Phosphatase Creatine Kinase Total Protein Albumin HSV I DNA Quant (PCR) Negative HSV II DNA Quant (PCR) Negative 07/04/18 07/04/18 07/04/18 06:00 06:00 07:13 Sodium 142 Potassium 3.8 Chloride 109 H Carbon Dioxide 27 Anion Gap 7 L BUN 5 L Creatinine 0.4 L Creat Clearance w eGFR > 60 POC Glucometer 135 Random Glucose 90 Calcium 8.4 L Total Bilirubin 0.5 Direct Bilirubin 0.1 AST 25 ALT 106 H Alkaline Phosphatase 78 Creatine Kinase 31 Cancelled Total Protein 5.4 L Albumin 2.8 L HSV I DNA Quant (PCR) HSV II DNA Quant (PCR) 07/04/18 11:09 Sodium Potassium Chloride Carbon Dioxide Anion Gap BUN Creatinine Creat Clearance w eGFR POC Glucometer 213 Random Glucose Calcium Total Bilirubin Direct Bilirubin AST ALT Alkaline Phosphatase Creatine Kinase Total Protein Albumin HSV I DNA Quant (PCR) HSV II DNA Quant (PCR) HOSPITAL COURSE: Date of Admission:06/29/18 Date of Discharge: 07/04/18 Patient is a 32 year old female with history of diabetes mellitus (not on treatment) presents with complaint of right sided neck pain, upper and lower extremity weakness. CT head showed no focal intracranial lesion. CT cervical spine showed no fracture, or subluxation. MRI brain showed no evidence of edema , hemorrhage, subacute infarct, or demyelinating process. MRI neck showed no evidence of disc herniation. Normal signal intensity of spinal cord without abnormal enhancement. Patient was evaluated by neurology who discussed right sided hemiplegia likely secondary to post herpetic rediculitis. Patient had LP performed. Sent for CSF profile, CSF culture, viral culture, HSV PCR, myelin basic protein. Started on Lyrica, Flexiril, Toradol, Oxycodole which was palliative. Patient was evaluated by infectious disease physician, and completed course of Valacyclovir. Patient developed transaminitis, and was evaluated by hydrostatic tester. Right upper quadrant ultrasound shows diffuse hepatic steatosis. Abdominal xray shows stool within right colon, questionable foreign body within transverse colon, left proximal descending colon. CT abdomen, pelvis showed surgical clips within abdomen consistent with the foreign bodies noted on abdominal xray. Abdominal imaging also noted an IUD, however patient was unaware of the IUD, stated that she believed it had been removed in the past. Advised outpatient follow up with her inletter. Abdominal pain resolved, and transaminases trended down. Hepatitis A,B,C serologies negative. Patient was noted to have HbA1c 11.5, not on home medication. She was evaluated by endocrinology and started on insulin levemir 10 units daily, in addition to sliding scale, and fingerstick blood glucose monitoring. Patient was discharged home with Flexeril, Coalce, Lyrica, Senna. A glucometer device with lancets, test strips, and alcohol pads was also sent to pharmacy. Follow up with primary care physician, neurologist, infectious disease physician, hydrostatic tester, obgyn, lasting room supervisor. Minutes to complete discharge: 45 Discharge Summary Reason For Visit: HEADACHE WEAKNESS OF RIGHT HAND NECK PAIN Current Active Problems Abdominal pain (Acute) Foreign body in colon (Acute) Headache (Acute) Neck pain (Acute) Post herpetic neuralgia (Acute) Right hand weakness (Acute) Right hemiparesis (Acute) T2DM (type 2 diabetes mellitus) (Acute) Transaminitis (Acute) Condition: Stable - Instructions Diet, Activity, Other Instructions: You were admitted to hospital with neck pain, upper and lower extremity weakness. You were evaluated by the Neurologist. Your MRI, and CT scans were negative. You had a Lumbar Puncture performed to evaluate the fluid around our brain and spinal cord (cerebrospinal fluid). Your liver enzymes were noted to be elevated, and you were evaluated by the Library Services Coordinator. You are being discharged home. You will take Flexeril 5mg every 8 hours as needed You will take taking Lyrica 300mg every 12 hours. You will take Docusate 240mg daily for the next 5 days- as needed to ensure soft bowel movements daily. Take for no more than 5 days. Take 2 Senna 8.6mg tablets daily for the next 5 days as needed to ensure soft bowel movements daily. Take for no more than 5 days. Avoid taking Acetaminophen (Tylenol) as your liver enzymes were noted to be elevated during your hospital course. Your blood sugar was found to be elevated and your Hemoglobin A1c was found to be 11.5, suggestive of Diabetes. You will begin taking Insulin Levemir 10 units daily. It is important to measure your fingerstick blood sugars in the morning when you wake up, before meals, and two hours after meals. Write down your blood sugar readings, and bring with you to your next primary care physician, and lasting room supervisor appointment. A prescription for glucometer, test strips, lancets , and alcohol pads has been sent to your pharmacy. CT scan of your abdomen confirmed that you have an IUD, which should be evaluated by your Keno Attendant. Follow up with your Keno Attendant within one week of discharge. Follow up with your primary care physician within two- three days of discharge. You will need blood work to follow your liver enzymes (CBC, CMP) at that appointment. Follow up with Neurologist (Dr. Green) within two- three days of discharge. Follow up with hydrostatic tester (Dr. Cooper) within one week of discharge. Be sure to bring your blood work from your primary care physician (CBC, CMP) to the appointment. You will also follow up with Transportation Program Director (Dr. Bush) within one week of discharge. Bring your blood sugar readings with you to your appointment. Return to the nearest Emergency Department if you experience worsening symptoms , subjective fevers, chills, shortness of breath, chest pain, palpitations, abdominal pain, nausea, vomiting, trauma, fall, loss of consciousness. Referrals: Raffaele Darby MD [Staff Physician] - Vernon Cooper DO [Staff Physician] - Paola Green MD [Staff Physician] - Jaren Bush MD [Staff Physician] - Disposition: HOME - Home Medications Comprehensive Discharge Medication List: Ambulatory Orders Alcohol Antiseptic Pads [Alcohol Prep Pads] 1 each TP ASDIR #1 box 07/03/18 Lancets 1 each MC ASDIR #1 box 07/03/18 Miscellaneous Medical Supply [Glucometer Device] 1 each .ROUTE ASDIR #1 kit Miscellaneous Medical Supply [Glucometer Test Strips #100] 1 each .ROUTE ASDIR # 1 box 07/03/18 Cyclobenzaprine HCl [Flexeril -] 5 mg PO TID PRN 5 Days #15 tablet 07/04/18 Docusate Calcium 240 mg PO DAILY 5 Days #5 capsule 07/04/18 Insulin Detemir [Levemir Flextouch] 10 unit SQ DAILY #3 insuln.pen 07/04/18 Pregabalin [Lyrica -] 300 mg PO Q12H 5 Days #30 capsule MDD 600mg 07/04/18 Sennosides [Senna] 8.6 mg PO DAILY 5 Days #10 tablet 07/04/18 This patient is new to me today: No Emergency Visit: Yes ED Registration Date: 06/29/18 Care time: The patient presented to the Emergency Department on the above date and was hospitalized for further evaluation of their emergent condition. Critical Care patient: No - Discharge Referral Referred to [facility] Med [facility].C[facility] Yes Physician Referral: Capo Cooper DO (GI)
[2018-07-04 14:34] VITALS: BP 132/76; PULSE 93; TEMP 98.6
--- NOTE | 2018-07-04 15:28 | PN ---
Teaching Attending Note Name of Resident: Jackson Nice ATTENDING PHYSICIAN STATEMENT I saw and evaluated the patient. I reviewed the resident's note and discussed the case with the resident. I agree with the resident's findings and plan as documented. SUBJECTIVE: Headache and Altered sensation/weakness R U and L extremities resolved. OBJECTIVE: Afebrile/Hemodynamically Stable. Last Vital Signs Temp Pulse Resp BP Pulse Ox 98.6 F 93 H 20 132/76 99 07/04/18 14:32 07/04/18 14:32 07/04/18 14:32 07/04/18 14:32 07/04/18 09:00 HEENT - Atraumatic, Normocephalic. Heart - S1, S2, RRR Lungs - clear to auscultation Abdomen - Soft, non-tender. Bowel Sounds normal. Extremities - no edema/calf tenderness Neuro - AAO x 3. HANS. EOMI. CN II-XII intact. Improved Power RUE and RLE. Laboratory Results - last 24 hr 07/01/18 07/03/18 07/03/18 11:00 16:23 23:32 Sodium Potassium Chloride Carbon Dioxide Anion Gap BUN Creatinine Creat Clearance w eGFR POC Glucometer 205 208 Random Glucose Calcium Total Bilirubin Direct Bilirubin AST ALT Alkaline Phosphatase Creatine Kinase Total Protein Albumin HSV I DNA Quant (PCR) Negative HSV II DNA Quant (PCR) Negative 07/04/18 07/04/18 07/04/18 06:00 06:00 07:13 Sodium 142 Potassium 3.8 Chloride 109 H Carbon Dioxide 27 Anion Gap 7 L BUN 5 L Creatinine 0.4 L Creat Clearance w eGFR > 60 POC Glucometer 135 Random Glucose 90 Calcium 8.4 L Total Bilirubin 0.5 Direct Bilirubin 0.1 AST 25 ALT 106 H Alkaline Phosphatase 78 Creatine Kinase 31 Cancelled Total Protein 5.4 L Albumin 2.8 L HSV I DNA Quant (PCR) HSV II DNA Quant (PCR) 07/04/18 11:09 Sodium Potassium Chloride Carbon Dioxide Anion Gap BUN Creatinine Creat Clearance w eGFR POC Glucometer 213 Random Glucose Calcium Total Bilirubin Direct Bilirubin AST ALT Alkaline Phosphatase Creatine Kinase Total Protein Albumin HSV I DNA Quant (PCR) HSV II DNA Quant (PCR) ASSESSMENT AND PLAN: 32 year old female, with history of DM2 (previously on Metformin), presents with neck pain, radiating to shoulder with altered sensation and weakness R U and L extremities. She had associated painful rash on R temporal region, which crusted over and started to resolve after outpatient treatment with Valacyclovir. 1. R sided weakness/altered sensation associated with neck pain and herpetic rash V1 distribution Possible Herpetic Radiculitis. Completed Valacyclovir treatment with improvement in rash. MS excluded on MRI Brain/Neck s/p LP under Fluoroscopy - results including Cx neg. Continue Flexeril, Lyrica. Neurology cleared for discharge and will follow as out-patient. 2. Acute Transaminitis, etiology unclear, likely medication induced, improving. AST 110 --- > 48 ---> 25 ALT 206 ---> 158 ---> 106 Abdominal US - hepatic steatosis Hepatitis panel negative Follow up labs as out-patient. 3. Constipation and possible foreign bodies in Colon on AXR - CT A/P reveals surgical clips from prior abdominal surgery/appendectomy, No FBs. Responded well to Miralax, for discharge on bowel regimen. 4. DM 2 - uncontrolled - not on medication A1C 11.5 Started on Levemir 10 units qhs and Insulin sliding scale ACHS Evaluated by Endocrinology - for follow up on discharge. Counseled regarding importance of strict diabetic control. 5. IUD on AXR - patient admits to having IUD in past but thought that it was removed at least 6 years ago. No pelvic pain/discomfort/abnormal bleeding. For out-patient gynecology evaluation. Medically stable for discharge with Neuro and Gynecology follow ups.
== END 2018-07-04 15:08 | disposition home or self-care (01) | DRG 50 ==
LOC: JERFT 18:16 → JERBED 06-26 00:41 → J7W 06-26 14:12 → OBSVTOIN 06-29 10:11
PROVIDERS: ADMIT Internal Medicine
PROC: 009U3ZX Drainage of Spinal Canal, Percutaneous Approach, Diagnostic (ICD-10-PCS; principal; 2018-07-01)
DX: B02.29 Other postherpetic nervous system involvement (principal); T18.4XXA Foreign body in colon, initial encounter; E11.65 Type 2 diabetes mellitus with hyperglycemia; G81.91 Hemiplegia, unspecified affecting right dominant side; B02.9 Zoster without complications; Z79.4 Long term (current) use of insulin; R74.0 Nonspecific elevation of levels of transaminase and lactic acid dehydrogenase [LDH]; K59.00 Constipation, unspecified; K76.0 Fatty (change of) liver, not elsewhere classified; X58.XXXA Exposure to other specified factors, initial encounter
CPT/HCPCS: 36415; 62272; 70450-TC; 70552-TC; 72125-TC; 72142-TC; 74018-TC-FY; 74176-TC; 76705-TC; 77002-TC-FY; 80048; 80053; 80074; 80076; 81003; 81015; 82550; 82945; 82962; 83036; 83735; 83873; 84100; 84157; 84443; 84703; 85025; 85027; 85610; 86705; 87070; 87205; 87252; 87529; 87902; 93005; 93010; 97116-GP; 97161-GP; 99282-25; G0378; J0131; J7030